=== PATIENT | male | born 1950 | race Caucasian/White ===

== ENCOUNTER 2024-07-16 09:02 | Inpatient (IN) ==
--- NOTE | 2024-06-19 13:22 | PAT Medication Instructions ---
Medication Instructions Date of Service June 19, 2024 Home Medications acetaminophen 325 mg tablet (Tylenol) 325 mg PO QID PRN Pain atorvastatin 40 mg tablet 40 mg PO HS cholecalciferol (vitamin D3) 50 mcg (2,000 unit) capsule 50 mcg PO DAILY diclofenac sodium 1 % topical gel (Aleve (diclofenac)) 2 g topical BID furosemide 20 mg tablet (Lasix) 20 mg PO DAILY furosemide 40 mg tablet (Lasix) 40 mg PO DAILY gabapentin 100 mg capsule (Neurontin) 100 mg PO BID hyoscyamine sulfate 0.125 mg sublingual tablet 0.25 mg PO Q6 PRN Nausea loperamide 2 mg capsule 2 mg PO Q6H PRN Loose Stool melatonin 5 mg capsule 10 mg PO HS rivaroxaban 20 mg tablet (Xarelto) 20 mg PO DAILY sennosides 8.6 mg tablet (Senna Laxative) 17.2 mg PO BID PRN Constipation tirzepatide 2.5 mg/0.5 mL subcutaneous pen injector (Mounjaro) 2.5 mg subcut WK bisacodyl 10 mg rectal suppository (Dulcolax (bisacodyl)) 10 mg ID PM PRN Constipation guaifenesin 100 mg/5 mL oral liquid 300 mg PO Q6 PRN Cough lactulose 20 gram/30 mL oral solution 20 g PO QAM PRN Constipation mineral oil 118 ml ID QAM PRN Constipation sennosides 8.6 mg-docusate sodium 50 mg tablet 1 tab-cap PO HS ASK your prescriber and surgeon rivaroxaban 20 mg tablet (Xarelto) 20 mg PO DAILY STOP 7 days prior to surgery tirzepatide 2.5 mg/0.5 mL subcutaneous pen injector (Mounjaro) 2.5 mg subcut WK STOP taking 24 hours before surgery diclofenac sodium 1 % topical gel (Aleve (diclofenac)) 2 g topical BID DO NOT take the morning of surgery cholecalciferol (vitamin D3) 50 mcg (2,000 unit) capsule 50 mcg PO DAILY furosemide 20 mg tablet (Lasix) 20 mg PO DAILY furosemide 40 mg tablet (Lasix) 40 mg PO DAILY hyoscyamine sulfate 0.125 mg sublingual tablet 0.25 mg PO Q6 PRN Nausea loperamide 2 mg capsule 2 mg PO Q6H PRN Loose Stool sennosides 8.6 mg tablet (Senna Laxative) 17.2 mg PO BID PRN Constipation guaifenesin 100 mg/5 mL oral liquid 300 mg PO Q6 PRN Cough lactulose 20 gram/30 mL oral solution 20 g PO QAM PRN Constipation mineral oil 118 ml ID QAM PRN Constipation Take morning of surgery With a small sip of water, OTHERWISE NOTHING TO EAT OR DRINK AFTER MIDNIGHT: acetaminophen 325 mg tablet (Tylenol) 325 mg PO QID PRN Pain (if needed) gabapentin 100 mg capsule (Neurontin) 100 mg PO BID Take evening before surgery acetaminophen 325 mg tablet (Tylenol) 325 mg PO QID PRN Pain (if needed) atorvastatin 40 mg tablet 40 mg PO HS gabapentin 100 mg capsule (Neurontin) 100 mg PO BID hyoscyamine sulfate 0.125 mg sublingual tablet 0.25 mg PO Q6 PRN Nausea (if needed) loperamide 2 mg capsule 2 mg PO Q6H PRN Loose Stool (if needed) melatonin 5 mg capsule 10 mg PO HS sennosides 8.6 mg tablet (Senna Laxative) 17.2 mg PO BID PRN Constipation (if needed) bisacodyl 10 mg rectal suppository (Dulcolax (bisacodyl)) 10 mg ID PM PRN Constipation (if needed) guaifenesin 100 mg/5 mL oral liquid 300 mg PO Q6 PRN Cough (if needed) sennosides 8.6 mg-docusate sodium 50 mg tablet 1 tab-cap PO HS Other Notes If you have any questions please call us at [phone] or [phone] or [phone] or [phone]
--- NOTE | 2024-06-29 12:56 | Anesthesiology Consultation ---
Date of Service June 29, 2024 Assessment & Plan (1) Encounter for preoperative assessment: Chart Review Chart Review: Acceptable Risk for Surgery (pending EKG DOS ) and Patient NOT seen in Pre Admission Testing - Check BSG AM DOS - Recheck EKG stat DOS - Mounjaro instructions: Patient informed by PAT nursing to stop 7 days prior to surgery. Patient advised by PAT nursing to check with prescriber to see if alternative diabetic management changes recommended while holding Mounjaro - if so, patient to call back to PAT to update chart and discuss if any further preop medication instructions needed. Last dose of Mounjaro given 06/24/24; will be off Mounjaro x 8 days by DOS on 07/02/24. -Infectious Disease screening: Per PAT nursing assessment on 06/19/24. Pt resi alexy at [facility]. No known infectious disease contacts in past 10 days or current infectious disease symptoms. No recent travel outside the country. Possibly getting preop Covid test 06/30/24 at facility- if not- [facility] Covid test will need ordered DOS History Surgery Operation Date: 07/02/24 07:30 Proposed Procedures p Hydrocelectomy - Bilateral - Gabriele Orona, Height/Weight Height: 5 ft 10 in Weight: 180.983 kg Allergies Allergy/AdvReac Type Severity Reaction Status Date / Time No Known Allergies Allergy Verified 06/19/24 12:32 Medications Home Medications Medication Instructions Recorded Confirmed Last Taken acetaminophen 325 mg tablet 325 mg PO QID PRN Pain 06/16/24 06/19/24 Unknown (Tylenol) atorvastatin 40 mg tablet 40 mg PO HS 06/16/24 06/19/24 Unknown cholecalciferol (vitamin D3) 50 50 mcg PO DAILY 06/16/24 06/19/24 Unknown mcg (2,000 unit) capsule diclofenac sodium 1 % topical gel 2 g topical BID 06/16/24 06/19/24 Unknown (Aleve (diclofenac)) furosemide 20 mg tablet (Lasix) 20 mg PO DAILY 06/16/24 06/19/24 Unknown furosemide 40 mg tablet (Lasix) 40 mg PO DAILY 06/16/24 06/19/24 Unknown gabapentin 100 mg capsule 100 mg PO BID 06/16/24 06/19/24 Unknown (Neurontin) hyoscyamine sulfate 0.125 mg 0.25 mg PO Q6 PRN Nausea 06/16/24 06/19/24 Unknown sublingual tablet loperamide 2 mg capsule 2 mg PO Q6H PRN Loose Stool 06/16/24 06/19/24 Unknown melatonin 5 mg capsule 10 mg PO HS 06/16/24 06/19/24 Unknown rivaroxaban 20 mg tablet (Xarelto) 20 mg PO DAILY 06/16/24 06/19/24 Unknown sennosides 8.6 mg tablet (Senna 17.2 mg PO BID PRN Constipation 06/16/24 06/19/24 Unknown Laxative) tirzepatide 2.5 mg/0.5 mL 2.5 mg subcut WK 06/16/24 06/19/24 Unknown subcutaneous pen injector (Mounjaro) bisacodyl 10 mg rectal suppository 10 mg WI PM PRN Constipation 06/19/24 06/19/24 Unknown (Dulcolax (bisacodyl)) guaifenesin 100 mg/5 mL oral liquid 300 mg PO Q6 PRN Cough 06/19/24 06/19/24 Unknown lactulose 20 gram/30 mL oral 20 g PO QAM PRN Constipation 06/19/24 06/19/24 Unknown solution mineral oil 118 ml WI QAM PRN Constipation 06/19/24 06/19/24 Unknown sennosides 8.6 mg-docusate sodium 1 tab-cap PO HS 06/19/24 06/19/24 Unknown 50 mg tablet Past Medical History Medical History Bilateral hydrocele BMI 50.0-59.9, adult Chronic atrial fibrillation on Xarelto Diabetes mellitus, type 2 Essential (primary) hypertension Hyperlipemia Insomnia Muscle weakness (generalized) Nonrheumatic mitral (valve) insufficiency [facility] resident Obstructive sleep apnea On anticoagulant therapy xarelto daily for a fib Osteoarthritis Past Family History Family History Other Family history unknown Past Surgical History Surgical History Surgical history unknown Social History Smoking Status: Unknown if ever smoked Testing Laboratory Results 06/22/24= WBC: 11.50 H/H: 12.5/38 PLATELETS: 347 SODIUM: 138 POTASSIUM: 4.0 CHLORIDE: 101 CO2: 26 BUN: 9 CREATININE: 0.91 GLUCOSE: 179 URINE CULTURE: >100,000 CFU/mL Klebsiella pneumoniae Electrocardiogram Date: 06/26/24 Atrial fibrillation with premature aberrantly conducted complexes at 89bpm Low voltage QRS Cannot rule out anterior infarct, age undetermined. "No for 48 hour holter mon(itor)" per confirming provider (Disucssed with Dr. Vaishnavi smith recheck EKG DOS) Chest X-Ray Date: 06/22/24 Findings: + NAD
[~2024-07-16 09:02] MED LIST: LACTATED RINGER'S 1,000 ML IV SCH; ceFAZolin 3000MG 3,000 MG/72.5 ML BAG IV SCH
--- NOTE | 2024-07-16 09:53 | History & Physical Report ---
Date of Service July 16, 2024 Assessment & Plan (1) Bilateral hydrocele: (2) BMI 50.0-59.9, adult: (3) On anticoagulant therapy: (4) Nonrheumatic mitral (valve) insufficiency: (5) Essential (primary) hypertension: (6) Lower extremity edema: (7) Spermatocele of epididymis, multiple: (8) Bilateral hydrocele: (9) Diabetes mellitus, type 2: (10) Obstructive sleep apnea: Plan Patient with severe edema and volume overload issues with chronic significant scrotal edema lower extremity edema severe comorbidities with morbid obesity and bedbound status. Patient has been having reoccurring issues with scrotal pain discomfort has known hydroceles had developed epididymitis issues has chronic scrotal and lower extremity edema. Extensive conversation today and review of options. Did discuss the removal/management of hydroceles and spermatocele will likely not change the p atient's severe chronic edematous issues of the scrotum. Patient understands risk and benefits. Discussed high risk for issues with wound infection and healing issues. Reviewed extensively need for drain placement and management. Discussed expectations and recovery after procedure. Patient understand risk and benefits. Understands significant comorbidities. Has had hospitalization secondary to severe pain and episodes of infections with hydroceles. Understands risks and benefits and wants to proceed with bilateral hydrocelectomy. Risks and benefits discussed at length for procedure. These include bleeding, infection, injury to surrounding tissues or organs, and risks associated with anesthesia. Patient states understanding and agrees to proceed. Will sign consent and proceed. Plan for bilateral hydrocelectomy History of Present Illness Primary Care Provider: Glenn Mata Patient here for procedure. Patient has severe scrotal edema with chronic severe vascular and cardiac issues with significant edematous changes of the lower extremities with brawny, woody, pitting edema and severe mobility issues with morbid obesity. Patient has been having increasing issues with recurrent epididymitis testicular pain scrotal edema cellulitis and bother. Patient has combination of significant scrotal cellulitis and scrotal edema as well as significant hydrocele bilaterally. No changes in medical issues. Significant chronic medical issues with severe exacerbation with hospitalization secondary to scrotal problems. No major changes in urinary issues. Continued issues and concerns. No change in pain or discomfort. No severe fevers or chills. No chest pain or shortness of breath. Risks and benefits discussed at length for procedure. These include bleeding, infection, injury to surrounding tissues or organs, and risks associated with anesthesia. Patient and/or family states understanding and agrees to proceed. Consent and supporting information completed. Allergies Allergy/AdvReac Type Severity Reaction Status Date / Time No Known Allergies Allergy Verified 06/19/24 12:32 Home Medications Medication Instructions Recorded Confirmed Type acetaminophen 325 mg tablet 325 mg PO QID PRN Pain 06/16/24 06/19/24 History (Tylenol) atorvastatin 40 mg tablet 40 mg PO HS 06/16/24 06/19/24 History cholecalciferol (vitamin D3) 50 50 mcg PO DAILY 06/16/24 06/19/24 History mcg (2,000 unit) capsule diclofenac sodium 1 % topical gel 2 g topical BID 06/16/24 06/19/24 History (Aleve (diclofenac)) furosemide 20 mg tablet (Lasix) 20 mg PO DAILY 06/16/24 06/19/24 History furosemide 40 mg tablet (Lasix) 40 mg PO DAILY 06/16/24 06/19/24 History gabapentin 100 mg capsule 100 mg PO BID 06/16/24 06/19/24 History (Neurontin) hyoscyamine sulfate 0.125 mg 0.25 mg PO Q6 PRN Nausea 06/16/24 06/19/24 History sublingual tablet loperamide 2 mg capsule 2 mg PO Q6H PRN Loose Stool 06/16/24 06/19/24 History melatonin 5 mg capsule 10 mg PO HS 06/16/24 06/19/24 History rivaroxaban 20 mg tablet (Xarelto) 20 mg PO DAILY 06/16/24 06/19/24 History sennosides 8.6 mg tablet (Senna 17.2 mg PO BID PRN Constipation 06/16/24 06/19/24 History Laxative) tirzepatide 2.5 mg/0.5 mL 2.5 mg subcut WK 06/16/24 06/19/24 History subcutaneous pen injector (Mounjaro) bisacodyl 10 mg rectal suppository [address] PM PRN Constipation 06/19/24 06/19/24 History (Dulcolax (bisacodyl)) guaifenesin 100 mg/5 mL oral liquid 300 mg PO Q6 PRN Cough 06/19/24 06/19/24 History lactulose 20 gram/30 mL oral 20 g PO QAM PRN Constipation 06/19/24 06/19/24 History solution mineral oil [address] QAM PRN Constipation 06/19/24 06/19/24 History sennosides 8.6 mg-docusate sodium 1 tab-cap PO HS 06/19/24 06/19/24 History 50 mg tablet Past Med/Surg History Problem List (Updated 07/16/24 @ 09:51 by Gabriele Orona DO) Lower extremity edema Spermatocele of epididymis, multiple (Chronic) Bilateral hydrocele (Chronic) Vitamin D deficiency Medical History On anticoagulant therapy xarelto daily for a fib [facility] resident BMI 50.0-59.9, adult Insomnia Bilateral hydrocele Osteoarthritis Obstructive sleep apnea Nonrheumatic mitral (valve) insufficiency Chronic atrial fibrillation on Xarelto Hyperlipemia Essential (primary) hypertension Muscle weakness (generalized) Diabetes mellitus, type 2 Surgical History Surgical history unknown Family History Other Family history unknown Social History Smoking Status: Unknown if ever smoked Preferred Language: Yakut Communication Ability: Effective [employer] Specialist Required: No Beliefs That Will Affect Care: None Current Living Situation: [facility] Current Living Situation Comment: resides at [facility] Assistive Devices Comment: unknown what all activities needs assist with, prison resident Review of Systems All systems reviewed & are unremarkable except as noted in HPI & below Physical Exam Physical Exam: General: Alert/Arousable. No Acute illness. Morbid obesity. Severe chronic comorbidities. Severe edematous changes of the lower extremity HEENT: Inspection normal. Normal inspection of face. Normal inspection of neck. Psychologic: Normal affect/No change in mentation. Respiratory: Chronic respiratory issue. No use of accessory muscles. No respiratory changes or exacerbation or changes with tachypnea or dyspnea. Cardiovascular: No tachycardia Skin: Severe pitting edema with chronic leg wounds. Abdomen: Morbid obesity. Normal inspection. No guarding. : Bilateral hydroceles. Scrotal edema. Results & Data Vital Signs (Past 12 Hours) Vital Signs Temp Pulse Resp BP Pulse Ox O2 Del Method 07/16/24 09:40 36.7 C 78 20 110/78 90 Room Air PG Care Time/CCT Total # of Minutes Spent Total Time Spent with Patient: Total time spent is greater than 50% in coordination of care (as documented) at patient's floor/unit and/or counseling patient: Coding Level of Care Code None Diagnoses Bilateral hydrocele N43.3 BMI 50.0-59.9, adult Z68.43 On anticoagulant therapy Z79.01 Nonrheumatic mitral (valve) insufficiency I34.0 Essential (primary) hypertension I10 Lower extremity edema R60.0 Spermatocele of epididymis, multiple N43.42 Diabetes mellitus, type 2 E11.9 Obstructive sleep apnea G47.33
[2024-07-16] MEDS ORDERED: DEXAMETHASONE SOD INJ 4 MG/ML VIAL ONE (09:55)
[2024-07-16] MEDS ORDERED: PROPOFOL IV EMULSION 10 MG/ML 20 ML VIAL IV ONE ×3 (09:56→13:23)
[2024-07-16] MEDS ORDERED: ONDANSETRON INJ 2 MG/ML 2 ML VIAL ONE (09:56)
[2024-07-16] MEDS ORDERED: LIDOCAINE 2% 2 ML VIAL/AMP(20MG/ML) INFIL ONE (09:56)
[2024-07-16] MEDS ORDERED: MIDAZOLAM HCL 1 MG/ML 2ML VIAL ONE (09:58)
[2024-07-16] MEDS ORDERED: fentaNYL citrate PF 100 MCG/2 ML VIAL ONE (09:58)
[2024-07-16] MEDS ORDERED: SUCCINYLCHOLINE CHLORIDE 20 MG/ML 10 ML VIAL IV ONE (09:59)
[2024-07-16] MEDS: LR 15ML/HR IV SCH (10:03)
[2024-07-16] MEDS ORDERED: ePHEDrine sulfate 50 MG/ML AMP IV PRN (10:43)
[2024-07-16] MEDS ORDERED: HYDROmorphone INJ 2 MG/ML SYR/VIAL IV PRN (10:43)
[2024-07-16] MEDS ORDERED: PROMETHAZINE HCL 6.25 MG in SODIUM CHLORIDE 0.9% 50 ML IV PRN (10:43)
[2024-07-16] MEDS ORDERED: ATROPINE SULFATE 0.1 MG/ML 10ML SYR IV PRN (10:43)
[2024-07-16] MEDS: ceFAZolin 3000MG 3,000 MG/72.5 ML BAG IV SCH (10:44)
[2024-07-16] MEDS ORDERED: PHENYLEPHRINE HCL 10 MG/ML VIAL ONE ×3 (11:01)
[2024-07-16] MEDS ORDERED: SUGAMMADEX SODIUM 200 MG/2 ML VIAL IV ONE (11:26)
[2024-07-16] MEDS: BUPIVACAINE 0.5 % 5 MG/1 ML MPF 30ML VIAL ONE (11:52)
[2024-07-16] MEDS ORDERED: ALBUTEROL HFA 8 GM INHALER INH ONE (12:41)
[2024-07-16] MEDS ORDERED: STAT IV Infusion **Titration per Protocol STA (12:56)
[2024-07-16] MEDS ORDERED: PROPOFOL BOLUS FROM BAG IV PRN (13:00)
--- NOTE | 2024-07-16 13:00 | Operative Report ---
PG Post Operative Report Pre & Post Diagnosis Operation Date: 07/16/24 13:10 Pre-Op Diagnosis: Bilateral Hydrocele Post-Op Diagnosis: Bilateral Hydrocele I identified the patient and participated in the time-out.: Yes Procedure Operation Date: 07/16/24 13:10 Actual Procedures Bilateral Hydrocelectomy, drainage of scrotal fluid collection, and Bilateral sp ermatocelectomy Difficult catheter placement with buried penis. - Gabriele Orona, DO Surgeon Gabriele Orona, II, DO Line Construction Superintendent None Estimated Blood Loss 10 Findings Consistent with Post-Op Diagnosis Significant bilateral hydroceles. Severe bilateral fluid collections within the hemiscrotum and severe thickened bilateral pitting edema of the scrotal skin. Small bilateral spermatoceles. Severely buried penis with difficult catheter placement. Approximately 500 cc drained with dark cloudy purulent appearing urine. Specimens Hydrocele Sac Right Hydrocele Sac Left Drains Bilateral Esteban Drain Anesthesia Type General Complications none Disposition Disposition: Recovery Room Indications Bothersome scrotal fluid collection. Severe scrotal fluid collections with severe edema and volume overload issues. Risks and benefits discussed at length. Description of Procedure Patient was consented and brought back to the operating room. Patient was placed under anesthesia in the supine position. Patient was prepped and draped in the regular sterile fashion. A time out was completed. With the time out completed and the patient prepped, the median raphe was marked and local injected into the subcutaneous tissues. The scrotum was found to be severely enlarged and swollen there was severe edematous changes throughout the scrotal skin no sign of skin wound or breakdown. Large bilateral hydroceles were able to be appreciated with as well as a severe amount of edematous changes of the skin with likely fluid collections within the hemiscrotum bilaterally. The penis was found to be buried. A cord block was completed at the scrotal junction. An incision was made with a scalpel and the deep tissues were dissected with bovie electrocautery. Dissection began on the right hemiscrotum first. Once the hemiscrotum was entered and a significant amount of fluid was drained. The testicle was able to be identified and freed from significant attachments throughout the hemiscrotum likely from inflammatory changes. The testicle was delivered and found to have a large fluid containing cyst. 2 small spermatoceles were discovered on the epididymis. A large hydrocele was noted. All important structures and landmarks were identified and the sac open avoiding any areas of concern. Excess tissue was dissected and sent for analysis. The spermatoceles were then dissected away from the testicle and epididymis. The entire testicle and epididymis were examined. The tissue was then isolated and dissected and sent with the specimen. All bleeding was controlled. The scrotum was irrigated and all bleeding controlled. The scrotal skin was found to still be severely edematous. The edges of the hydrocele sac were then ov ersewn behind the testicle with a 2-0 Vicryl suture. A cord block was completed with additional local anesthetic. The entire area was examined. It was decided to place a Marion drain in the dependant portion of the scrotum to drain the hemiscrotum. The drain was placed and suture with a nylon. The testicle appeared viable without lesions or other areas of concern. The Testicle was placed into the hemiscrotum in anatomic position without any torsion of the cord. The left hemiscrotum was then entered. Once again a large amount of fluid was drained from the left hemiscrotum. Between the left and right hemiscrotum over 550 cc of fluid were drained off. The testicle was delivered on the left side. The important structures were assessed. A small spermatocele was noted with a large left hydrocele All important structures and landmarks were identified and the sac open avoiding any areas of concern. Excess tissue was dissected and sent for analysis. The spermatoceles were then dissected away from the testicle and epididymis. The entire testicle and epididymis were examined. The tissue was then isolated and dissected and sent with the specimen. All bleeding was controlled. The scrotum was irrigated and all bleeding controlled. The scrotal skin was found to still be severely edematous. The edges of the hydrocele sac were then oversewn behind the testicle with a 2-0 Vicryl suture. A cord block was completed with additional local anesthetic. The entire area was examined. It was decided to place a Esteban drain in the dependant portion of the scrotum to drain the hemiscrotum. The drain was placed and suture with a nylon. A 2-0 nylon was used for both Esteban drains. The testicle appeared viable without lesions or other areas of concern. The Testicle was placed into the hemiscrotum in anatomic position without any torsion of the cord. There was still significant edematous changes throughout the scrotal wall and scrotal tissue. No major fluid collections or other areas of concern were noted no abscess formation. No additional hydrocele spermatoceles or other abnormalities were noted. Both testicles appear to be viable and able to be positioned in the hemiscrotum without major issue. Both drains were draining well without major problems or concerns. The scrotal wall did appear to be edematous without signs of active bleeding and a severe amount of fluid had been noted within the hemiscrotum's bilaterally as noted above. The deep and subcutaneous tissues were closed with a running 3-0 vicryl suture. A 2-0 and 3-0 Vicryl suture was then used to close the skin in an interrupted fashion. The area was cleaned. Bandages were placed A scrotal support was placed with dressings. Due to the significant buried penis and concerns of patient's history of infection issues and possible issues with wound healing due to patient's severe comorbidities and severe edematous changes throughout the scrotum it was decided to place a catheter to allow full drainage as well as to divert urine away from the wound. The penile head was able to be assessed however was found to be significantly buried due to patient's pannus as well as the severe scrotal edema. Significant manipulation was necessary in order to expose the head of the penis. Once exposed the area was prepped in the typical sterile fashion and a 18 Bangladeshi catheter was able to be placed. Dark cloudy purulent appearing urine with large amount of debris was appreciated. Approximately 500 cc was drained off. The catheter balloon was elevated. The patient was cleaned, aroused from anesthesia, and transferred to the pacu in stable condition having tolerated the procedure well with no complications. I was present and participated in all aspects of the procedure. Plan to maintain catheter until patient has had adequate healing. Can likely remove in the next 2 to 4 weeks. Will plan to have patient return for follow-up with [facility] for wound check as well as drain removal in the office. If necessary can have drain removal done at outlying facility in approximately 7 to 10 days. I attest to the content of the Intraoperative Record and any orders documented therein. Any exceptions are noted below.
[2024-07-16] MEDS: propofoL 1,000 MG/100 ML VIAL IV SCH (13:05)
--- NOTE | 2024-07-16 13:11 | XRay Report ---
XR chest 1V portable CLINICAL HISTORY: intubation COMPARISON STUDY: None FINDINGS: Endotracheal tube tip is at the thoracic inlet. There is cardiomegaly with mild pulmonary v ascular congestion. There is mild stranding opacity in the lung bases. No pneumothorax. IMPRESSION: 1. Well-positioned endotracheal tube. 2. Mild CHF. 3. Likely lung base atelectasis. ACT 112: Negative or not required by law. Electronically signed by: Cristopher Stanford M.D. 07/16/2024 1:10 PM
--- NOTE | 2024-07-16 13:42 | Anesthesiology Progress Note ---
Date of Service July 16, 2024 Anesthesia Post Procedure Vital Signs Vital Signs: Temp Pulse Resp BP Pulse Ox O2 Del Method O2 Flow Rate 07/16/24 10:03 Room Air 88 07/16/24 09:40 36.7 C 78 20 110/78 90 Room Air Transfer of Care Handoff Completed per policy Notes Mental Status: see notes below Nausea / Vomiting: adequately controlled Pain: adequately controlled Airway Patency, RR, SpO2: see Notes below BP & HR: stable & adequate Hydration State: stable & adequate Anesthetic Complications: see Notes below Notes: Pt extubated in OR after sugammadex reversal with good tidal volumes and awake and responsive. Pt became unresponsive on arrival to PACU with hypoventillation and O2 sat ~75. Bag mask ventillation with nasal trumpet and oral airway was minimally successful with O2 sat improving to low 89s with substantial effort. Patient was reintubated in PACU with 8.0 tube using a Glidescope 4MAC with partial view of cords. Position was confirmed via CO2, auscultation and chest xray with improvement of O2 sats to mid 90s. Tube was suctioned and Albuterol puffs given via ET tube for wheezing on auscultation. Patient then bit through the airplane pilot helper cuff tube and cuff deflated with leak on ventillation. Tube was quickly exchanged using a bougie without incident using an 8.0 ET tube and maintaining the bougie at 25 cm at the teeth during the exchange process to avoid bronchial/lung injury. Pt was then begun on a propofol infusion for sedation with mechanical ventilation resumed by the respiratory service at 600 mL x 20 bpm with a PEEP setting of 10. Consult was placed for the grain thresher and patient prepared for transport to the ICU.
--- NOTE | 2024-07-16 13:47 | XRay Report ---
XR chest 1V portable CLINICAL HISTORY: s/p intubation COMPARISON STUDY: 07/16/2024 FINDINGS: Endotracheal tube tip is just below the thoracic inlet. There is stable cardiomegaly with p ulmonary vascular congestion. There is increased patchy opacity at the right base with partial obscur ation of the diaphragm. Stable stranding at the left base. No pneumothorax. IMPRESSION: 1. Well-positioned endotracheal tube. 2. Increased atelectasis versus pneumonia right lung base. ACT 112: Negative or not required by law. Electronically signed by: Cristopher Stanford M.D. 07/16/2024 1:46 PM
[2024-07-16] MEDS ORDERED: cefTRIAXone SODIUM 1,000 MG/50 ML BAG IV SCH (15:00)
[2024-07-16] MEDS: SUCCINYLCHOLINE CHLORIDE 20 MG/ML 10 ML VIAL IV ONE (15:59)
[2024-07-16] MEDS: cefTRIAXone SODIUM 2,000 MG/50 ML BAG IV SCH (16:01)
[2024-07-16] MEDS: MEROPENEM 500 MG in SYRINGE 0 ML IV SCH (17:00)
--- NOTE | 2024-07-16 17:07 | Billing Data ---
Date of Service July 16, 2024 Coding Level of Care Code 68613 CRITICAL CARE
--- NOTE | 2024-07-16 19:52 | Critical Care Consultation ---
Date of Consultation July 16, 2024 Assessment & Plan (1) Spermatocele of epididymis, multiple: (2) Bilateral hydrocele: (3) Lower extremity edema: (4) Acute hypoxemic respiratory failure: Secondary to anesthesia and obesity hypoventilation Plan Neurologic APAP PRN pain/fever Gabapentin tomorrow Propofol for RASS goal 0 to -1 Daily SAT Respiratory No active wheezing. Will hold on bronchodilators Daily SBT, hopefully extubated in AM. May require transition to BIPAP. Cardiovascular Continue home diuretics, statin Home Xarelto in AM Gastrointestinal/Nutrition Diet: NPO. OGT deferred as Rx non-emergent overnight and likely to be extubated in AM. If unable to be extubated will need to place for home meds SUP: H2B Bowel regimen: Miralax Endocrine Hold home Mounjaro. ISS for BG 140-180 per [facility]M guidelines Infectious Disease Perioperative antibiotics per Urology Renal/Electrolytes Follow UOP Maintain burr catheter 2-4 weeks per Urology Replete electrolytes as indicated Lasix as above Heme/Onc No acute issues MSK/Skin/Other Wound care, elevate legs Mobilize as able PT/OT L/T/D PIV x2 ETT (Day #1) Burr (Day #1) Laura Becker PA-C Critical Care Medicine Supervising Physician Co-Signing Physician Notes I have personally evaluated and examined this patient. I agree with assessment and plan of Per Becker PA-C I evaluated the patient in the PACU. Reintubation for postoperative respiratory insufficiency. Concern for possible early pneumonia versus atelectasis in right lower lobe. Empirically starting on Rocephin. I have personally spent 35 minutes of critical care time in the direct management of this patient. This is a life/limb threatening event. This includes time spent evaluating patient, direct bedside care, chart review, placing orders, interpretation of diagnostic studies, discussion with consultants, patient, and/or family members regarding treatment decisions, as well as other required patient management activities. This time is exclusive of all separately billable procedures, and teaching time and separate from and in addition to any other critical care service time. History of Present Illness Reason for Consultation: Respiratory insufficiency Requesting Physician: Yeyo Attending Physician: Gabriele Orona, II, DO History of Present Illness Mr. Oli Gandhi is a 74YOM with a history of morbid obesity, ambulatory dysfunction, chronic AF on Xarelto, JERICA, HF unknown EF, MV insufficiency, HTN/HLD, BLE edema, DMII, bilateral hydrocele who presented to [facility] for planned hydrocelectomy. Procedure was uncomplicated. Patient did have severely buried penis with difficult catheter placement. He had bilateral rena drains placed into the scrotum after approximately 550cc of fluid were drained from L and R hemiscrotum. Post-operatively the patient was extubated, but then required reintubation due to hypoxemia and hypoventilation. 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 He is admitted to ICU for close monitoring and ventilator management overnight. Patient seen in ICU 105. He is intubated and sedated. VSS, AF. ETT has scant bloody secretions. Vent AC 500/20/10/0.6. EtCO2 34. ETT 8.0 24cm at lip. Patient arouses to voice. Requiring propofol at 30mcg/kg/min. Moves all extremities spontaneously. ROS unable to be obtained due to mechanical ventilation. Allergies Allergy/AdvReac Type Severity Reaction Status Date / Time No Known Allergies Allergy Verified 06/19/24 12:32 Home Medications Medication Instructions Recorded Confirmed Type acetaminophen 325 mg tablet 325 mg PO QID PRN Pain 06/16/24 07/16/24 History (Tylenol) atorvastatin 40 mg tablet 40 mg PO HS 06/16/24 07/16/24 History cholecalciferol (vitamin D3) 50 50 mcg PO DAILY 06/16/24 07/16/24 History mcg (2,000 unit) capsule diclofenac sodium 1 % topical gel 2 g topical BID 06/16/24 07/16/24 History (Aleve (diclofenac)) furosemide 20 mg tablet (Lasix) 20 mg PO DAILY 06/16/24 07/16/24 History furosemide 40 mg tablet (Lasix) 40 mg PO DAILY 06/16/24 07/16/24 History gabapentin 100 mg capsule 100 mg PO BID 06/16/24 07/16/24 History (Neurontin) hyoscyamine sulfate 0.125 mg 0.25 mg PO Q6 PRN Nausea 06/16/24 07/16/24 History sublingual tablet loperamide 2 mg capsule 2 mg PO Q6H PRN Loose Stool 06/16/24 07/16/24 History melatonin 5 mg capsule 10 mg PO HS 06/16/24 07/16/24 History rivaroxaban 20 mg tablet (Xarelto) 20 mg PO DAILY 06/16/24 07/16/24 History sennosides 8.6 mg tablet (Senna 17.2 mg PO BID PRN Constipation 06/16/24 07/16/24 History Laxative) tirzepatide 2.5 mg/0.5 mL 2.5 mg subcut WK 06/16/24 07/16/24 History subcutaneous pen injector (Mounjaro) bisacodyl 10 mg rectal suppository 10 mg MT PM PRN Constipation 06/19/24 07/16/24 History (Dulcolax (bisacodyl)) guaifenesin 100 mg/5 mL oral liquid 300 mg PO Q6 PRN Cough 06/19/24 07/16/24 History lactulose 20 gram/30 mL oral 20 g PO QAM PRN Constipation 06/19/24 07/16/24 History solution mineral oil 118 ml MT QAM PRN Constipation 06/19/24 07/16/24 History sennosides 8.6 mg-docusate sodium 1 tab-cap PO HS 06/19/24 07/16/24 History 50 mg tablet ciprofloxacin HCl 500 mg tablet 500 mg PO Q12H #14 tabs 07/16/24 Rx (Cipro) oxycodone 5 mg tablet 5 mg PO Q6H PRN pain #6 tabs 07/16/24 Rx tamsulosin 0.4 mg capsule 0.4 mg PO HS #30 caps 07/16/24 Rx Patient History Medical History On anticoagulant therapy xarelto daily for a [facility] long-term resident BMI 50.0-59.9, adult Insomnia Bilateral hydrocele Osteoarthritis Obstructive sleep apnea Nonrheumatic mitral (valve) insufficiency Chronic atrial fibrillation on Xarelto Hyperlipemia Essential (primary) hypertension Muscle weakness (generalized) Diabetes mellitus, type 2 Surgical History Surgical history unknown Family History Other Family history unknown Social History Smoking Status: Unknown if ever smoked Preferred Language: Latvian Communication Ability: Effective Pony Worker Required: No Beliefs That Will Affect Care: None Current Living Situation: Shelter Current Living Situation Comment: resides at [facility] in [place] Assistive Devices Comment: unknown what all activities needs assist with, senior living resident Review of Systems Review of Systems: Unobtainable due to endotracheal tube Physical Exam Constitutional: + morbidly obese and + frail appearing; no acute distress Eyes: PERRL, conjunctivae normal, anicteric sclerae ENMT: ETT in place, 24cm at lip. Scant bloody secretions. Neck: trachea midline, no thyromegaly Respiratory: symmetric chest movement Scattered rales Cardiovascular: Atrial fibrillation, + murmur, + peripheral edema, 3-4+ pedal edema, no open ulcerations noted Gastrointestinal (Abdomen): normal bowel sounds, soft, nontender, no hepatosplenomegaly Obese Musculoskeletal: No cyanosis or clubbing Skin: Warm and dry. Venous stasis changes without open lesions. Neurologic: Intubated and sedated. Awakens to voice. Moving extremities spontaneously. Genitourinary: Burr in place draining dark yellow urine. Bilateral rena drains in place Results & Data Results & Data Vital Signs (Past 12 Hours) Vital Signs Temp Pulse Pulse Pulse Resp BP BP 07/16/24 17:00 73 20 07/16/24 16:59 122/65 07/16/24 16:59 122/65 07/16/24 16:59 122/65 07/16/24 16:59 122/65 07/16/24 16:45 75 20 07/16/24 16:30 77 20 07/16/24 16:25 115/66 07/16/24 16:25 115/66 07/16/24 16:25 115/66 07/16/24 16:21 76 20 07/16/24 16:15 77 20 07/16/24 16:00 73 20 07/16/24 16:00 07/16/24 16:00 07/16/24 15:55 110/72 07/16/24 15:55 110/72 07/16/24 15:54 74 20 07/16/24 15:51 72 20 07/16/24 15:42 79 20 07/16/24 15:00 92 H 20 07/16/24 15:00 68 20 96/92 L 01/23/25 14:50 80 20 98/68 L 07/16/24 14:40 68 20 88/68 L 07/16/24 14:30 79 20 96/64 L 07/16/24 14:20 79 20 97/65 L 07/16/24 14:10 72 20 97/61 L 07/16/24 14:00 77 20 96/59 L 07/16/24 13:50 80 20 106/70 07/16/24 13:40 82 20 111/72 07/16/24 13:30 98 H 20 102/86 07/16/24 13:20 84 20 101/67 07/16/24 13:10 92 H 13 103/79 07/16/24 13:00 105 H 17 124/83 07/16/24 12:50 96 H 18 94/59 L 07/16/24 12:40 98 H 25 H 120/90 07/16/24 12:32 36.0 C L 95 H 7 L 122/76 07/16/24 10:03 07/16/24 09:40 36.7 C 78 20 110/78 Pulse Ox O2 Del Method O2 Flow Rate FiO2 07/16/24 17:00 94 Mechanical Vent 0.5 07/16/24 16:59 07/16/24 16:59 07/16/24 16:59 07/16/24 16:59 07/16/24 16:45 94 07/16/24 16:30 95 07/16/24 16:25 07/16/24 16:25 07/16/24 16:25 07/16/24 16:21 85 L 07/16/24 16:15 100 Mechanical Vent 1.0 07/16/24 16:00 93 07/16/24 16:00 1.0 07/16/24 16:00 Mechanical Vent 1.0 07/16/24 15:55 07/16/24 15:55 07/16/24 15:54 99 07/16/24 15:51 100 07/16/24 15:42 96 100 07/16/24 15:00 92 100 07/16/24 15:00 98 Mechanical Vent 100 07/16/24 14:50 97 Mechanical Vent 100 07/16/24 14:40 97 Mechanical Vent 100 07/16/24 14:30 97 Mechanical Vent 100 07/16/24 14:20 98 Mechanical Vent 100 07/16/24 14:10 98 Mechanical Vent 100 07/16/24 14:00 97 Mechanical Vent 100 07/16/24 13:50 97 Mechanical Vent 100 07/16/24 13:40 99 Mechanical Vent 100 07/16/24 13:30 97 Mechanical Vent 100 07/16/24 13:20 98 Mechanical Vent 100 07/16/24 13:10 91 Mechanical Vent 100 07/16/24 13:00 96 Mechanical Vent 100 07/16/24 12:50 92 Mechanical Vent 100 07/16/24 12:40 83 L Ambu-Bag 15 07/16/24 12:32 85 L Oxymask 15 07/16/24 10:03 Room Air 88 07/16/24 09:40 90 Room Air Laboratory Results Reviewed. Diagnostic Findings Reviewed. Medications Administered See [facility] Coding Level of Care Code 43976 CRITICAL CARE 1ST 30-74M Diagnoses Spermatocele of epididymis, multiple N43.42 Bilateral hydrocele N43.3 Lower extremity edema R60.0 Acute hypoxemic respiratory failure J96.01
[2024-07-16] MEDS: MELATONIN 3 MG TAB PO SCH (20:06)
[2024-07-16] MEDS: GABAPENTIN 100 MG CAP PO SCH (20:06)
[2024-07-16] MEDS: ATORVASTATIN 40 MG TAB PO SCH (20:06)
[2024-07-16] MEDS ORDERED: POLYETHYLENE (MIRALAX) 17 GM PACK PO PRN (21:31)
[2024-07-16] MEDS ORDERED: Nursing to Pharmacy Communication SCH (22:00)
[2024-07-16] MEDS: FAMOTIDINE 20MG IV PUSH 20 MG/5 ML SYR IV SCH (22:24)
[2024-07-17] MEDS: ICU Protocol for HYPERglycemia SCH (00:11)
[2024-07-17] MEDS: MICONAZOLE NITRATE POWDER 85 GM EXT PRN (02:23)
[2024-07-17 04:47] LABS: Basophils # (auto) 0.05 K/uL (0.00-0.20); Basophils % (auto) 0.4 %; Eosinophils # (auto) 0.14 K/uL (0.00-0.50); Eosinophils % (auto) 1.1 %; Hematocrit (blood only) 37.2 % (42.0-52.0); Hemoglobin 11.9 g/dl (14.0-18.0); Immature Granulocytes # (auto) 0.05 K/uL (0.01-0.20); Immature Granulocytes % (auto) 0.4 %; Lymphocytes # (auto) 1.49 K/uL (1.20-3.40); Mean Corpuscular Hemoglobin 29.8 pg (25.0-34.0); Mean Corpuscular Volume 93.2 fL (80.0-100.0); Mean Platelet Volume 8.9 fL (9.4-12.4); Monocytes # (auto) 1.21 K/uL (0.11-0.59); Monocytes % (auto) 9.7 %; Neutrophils % (auto) 76.4 %; Platelet Count 307 K/uL (130-400); RDW Standard Deviation 48.2 fL (36.4-46.3); Red Blood Count 3.99 M/uL (4.70-6.10); White Blood Count 12.44 K/ul (4.8-10.8)
[2024-07-17 05:04] LABS: Creatinine Clr Calc Pharmacy 144.9 ml/min; Magnesium 1.6 mg/dl (1.7-2.4); Phosphorus 3.4 mg/dl (2.5-4.9)
[2024-07-17 05:05] LABS: BUN Creatinine Ratio 16.3 (10-20); Calcium 9.1 mg/dl (8.6-10.3); Creatinine Clr Calc Pharmacy 139.5 ml/min; Potassium 3.8 mmol/L (3.5-5.1)
[2024-07-17 05:49] LABS: Base Excess VBG 12.4 mEq/L; HCO3 VBG 38 mmol/L; Oxygen Saturation VBG < 60.0 %; PCO2 VBG 51 mmHg (38-50); PO2 VBG 28 mmHg; pH VBG 7.48 (7.36-7.41)
--- NOTE | 2024-07-17 06:58 | Critical Care Progress Note ---
Date of Service July 17, 2024 Assessment & Plan (1) Acute hypoxemic respiratory failure: Plan: Secondary to anesthesia and obesity hypoventilation (2) Spermatocele of epididymis, multiple: (3) Bilateral hydrocele: (4) Lower extremity edema: Plan Reason critically ill: postop day 1 s/p b/l hydrocelectomy procedure with acute hypoxemic resp failure and complicated extubation due to morbid obesity and airw ay obstruction. Neurologic - APAP PRN pain/fever - Gabapentin 100mg BID on board - sedation weaned post extubation, currently just on PO oxycodone for pain management Daily SAT Respiratory No active wheezing, hold bronchodilators. Extubated in AM -> BiPAP -> oxymask 5L/min with sats mainly in mid-90s, resp rate has been low-mid 30s since post-extubation Possible RLL pneumonia covered by meropenem -> ertapenem 07/17/24 Obtain BMP in AM for bicarb trendin today, likely metabolic compensation for resp acidosis Cardiovascular Continue home diuretics, statin Home Xarelto 20mg for a-fib, back on 07/17/24 Gastrointestinal/Nutrition Diet: swallow eval 12pm passed -> diet order liquids to start, advance as tolerated SUP: H2B Bowel regimen: Miralax Endocrine Hold home Mounjaro. ISS for BG 140-180 per [facility]M guidelines Infectious Disease Transition from meropenem to ertapenem today 07/17/24 for Kleb pneumo ESBL with multiple resistance patterns as well as possible pneumonia. If patient needs active treatment for UTI would likely necessitate 14-day course, defer to primary ordering service for duration of therapy/indication; could conceivably treat for pulmonary issues for 7 days. Renal/Electrolytes Follow UOPd Maintain burr catheter 2-4 weeks per Urology Replete electrolytes as indicated: receiving mag currently - BMP with mag and phos in AM Lasix as above: 650cc in bag this AM, still having severe swelling in b/l LE, less significant in b/l UE Heme/Onc WBCs 12.4 with slightly elevated nphils, otherwise no major concerns for bleeding - CBC in AM MSK/Skin/Other Wound care, elevate legs Mobilize as able PT/OT orders in L/T/D L antecubital IV Burr (Day #1) Admission and Anticipated Discharge Date Admission Date: July 16, 2024 Supervising Physician Co-Signing Physician Notes Dr. Chawla was resident physician during care of patient. I separately evaluated patient for bae portions of the history and the exam. I was present during the critical portion of medical decision making, and I discussed the case with the resident. I generally agree with the findings and plan. Patient critically ill, liberated from ventilator this morning transition from mechanical ventilation to BiPAP, attempting to wean BiPAP later today. I am concerned about patient's ability to remain extubated secondary to body habitus: BMI 56 and recent surgical procedure to the scrotum which may preclude him being able to sit upright adequately and adequate pain control. Narcotics relatively contraindicated in a patient who has predisposed to underlying obstructive sleep apnea and airway obstruction. Clinical update 1600: Patient has been able to be extubated. Occasionally requiring intermittent BiPAP. BiPAP is able to be discontinued and then patient does intermittently obstruct. I am suspect that this is his baseline. Ordered end-tidal CO2 monitoring. The only BMP that I am able to find is that on admission with a BNP of 34 I suspect patient has baseline chronic hypercapnic respiratory acidosis with chronic compensation: Obesity hypoventilation syndrome and significant obstructive sleep apnea. Attempting to limit narcotic analgesia, received Tylenol and Toradol. Jorge Baird was seen and evaluated at bedside this afternoon, wearing oxymask at 5L/min, not appearing in acute respiratory distress. He did have to pause to catch his breath when talking for more than a few seconds, but otherwise not feeling SOB, chest pain, or chest discomfort. States he is not having any significant pain or discomfort. Per Leena pt's nurse, he was able to successfully swallow his pills today, so may be able to start a liquid diet. Understands he is being treated for UTI and his scrotum is healing post- procedure. Physical Exam Physical Exam: Constitutional: A&Ox2, reported name and but did not recall hospital. Wearing oxymask 5L/min with elevated RR Head: NC/AT ENT: EOM intact, PERRL b/l, unable to visualize pharynx due to obstruction by soft palate Neuro: no facial droop, speech intact, moving all extremities, follows instructions to wiggle fingers and toes successfully Respiratory: small-moderate air movement b/l, otherwise clear to auscultation without wheeze/rales/rhonchi Cardiac: RRR, no m/r/g on auscultation, skin warm and dry - pulses: 2+ carotid b/l, 2+ radial b/l, unable to palpate LE pulses due to significant edema but extremities are warm GI/abd: +BS, obese, abdomen soft, nontender to palpation : Burr to gravity draining dark urine, ~100cc in bag currently; unable to visualize penis due to burying 2/2 body habitus, scrotum appearing with slight erythema Skin: scattered dry skin, flaky rash under abdominal pannus, no sores or active bleeding/weeping seen MSK: 5/5 strength in all extremities, 1+ pitting edema in b/l distal UE, 3+ pitting edema in b/l LE up to shins, calves nontender to palpation, no erythema observed, negative Hossein's b/l Results & Data Results & Data Vital Signs (Past 12 Hours) Vital Signs Temp Pulse Resp BP Pulse Ox O2 Del Method FiO2 07/17/24 06:03 72 16 94 07/17/24 05:44 66 20 96 07/17/24 05:35 72 20 96 07/17/24 05:25 128/78 07/17/24 05:25 36.7 C 128/78 07/17/24 05:23 66 20 96 07/17/24 05:02 66 20 97 07/17/24 04:55 131/72 07/17/24 04:41 62 20 96 07/17/24 04:38 36.7 C 69 20 96 Mechanical Vent 60 07/17/24 04:20 77 20 94 60 07/17/24 04:08 74 20 94 07/17/24 04:00 60 07/17/24 03:55 110/69 07/17/24 03:50 64 20 94 07/17/24 03:32 71 20 94 07/17/24 03:08 75 20 94 07/17/24 02:55 105/64 07/17/24 02:53 71 20 94 07/17/24 02:50 69 20 94 07/17/24 02:41 74 20 95 07/17/24 02:32 69 20 95 07/17/24 02:25 119/73 07/17/24 02:25 119/73 07/17/24 02:23 76 20 95 07/17/24 02:11 71 20 95 07/17/24 02:02 72 20 94 07/17/24 01:56 65 20 94 07/17/24 01:55 107/71 07/17/24 01:55 107/71 07/17/24 01:55 107/71 07/17/24 01:25 119/74 07/17/24 01:15 110 H 20 94 07/17/24 00:56 121/70 07/17/24 00:56 121/70 07/17/24 00:51 65 20 93 07/17/24 00:48 72 20 93 07/17/24 00:33 73 20 93 07/17/24 00:25 37.0 C 123/76 07/17/24 00:24 67 20 94 07/17/24 00:21 68 20 94 07/17/24 00:00 73 20 93 07/17/24 00:00 60 07/16/24 23:55 82 20 93 60 07/16/24 23:55 73 07/16/24 23:48 72 20 93 07/16/24 23:33 65 20 93 07/16/24 23:26 114/67 07/16/24 23:26 114/67 07/16/24 23:24 74 20 94 07/16/24 23:21 71 20 94 07/16/24 22:42 69 20 94 07/16/24 22:36 72 20 94 07/16/24 22:24 71 20 94 Mechanical Vent 60 07/16/24 22:12 74 20 93 07/16/24 22:04 Mechanical Vent 60 07/16/24 22:03 77 20 94 07/16/24 21:55 120/77 07/16/24 21:45 69 20 94 07/16/24 21:42 79 20 94 07/16/24 21:39 74 20 94 07/16/24 21:25 123/72 07/16/24 21:25 123/72 07/16/24 21:24 68 20 94 07/16/24 21:06 75 20 94 07/16/24 20:55 122/68 07/16/24 20:54 78 20 94 07/16/24 20:36 73 20 95 07/16/24 20:25 122/72 07/16/24 20:15 79 20 97 07/16/24 20:15 75 20 95 60 07/16/24 20:09 72 20 95 07/16/24 20:00 60 07/16/24 19:56 134/70 07/16/24 19:56 134/70 07/16/24 19:54 78 20 95 07/16/24 19:30 73 20 95 07/16/24 19:25 36.9 C 134/72 07/16/24 19:21 72 20 95 07/16/24 19:00 70 20 95 Mechanical Vent 60 Resident Activity Tracking Resident Involvement: Resident Care Provided Care Provided: Adult Hospital Medicine
[2024-07-17] MEDS ORDERED: ICU Protocol for HYPERglycemia SCH (07:30)
--- NOTE | 2024-07-17 07:48 | Billing Data ---
Date of Service July 17, 2024 Coding Level of Care Code 93699 CRITICAL CARE
--- NOTE | 2024-07-17 08:15 | XRay Report ---
EXAM: XR chest 1V portable CLINICAL HISTORY: INTUBATED, PLAN TO EXTUBATE EUFEMIA TECHNIQUE: An X-ray image of the chest is obtained in 1 AP projection. COMPARISON: No prior studies are available for comparison. FINDINGS: ETT seen with its tip 7.1 cm from mc. Pulmonary Parenchyma: Right lower lung zone ill-defined patchy opacity seen, on background of bilateral prominent broncho vascular markings and hilar vessels, could be due to pulmonary congestion versus acute infectious process advised for clinical correlation Obliterated both costophrenic angles, possibly due to pleural effusion Heart and Mediastinum: Cardiomegaly. Bony Thorax: Bony thorax appears intact without fractures or deformities. Soft Tissues: Soft tissues overlying the chest wall are unremarkable. IMPRESSION: 1. ETT seen with its tip 7.1 cm from the mc, may need to be pushed 1 or 2 cm for its optimal position. 2. Right lower lung zone ill-defined patchy opacity seen, on background of bilateral prominent broncho vascular markings and hilar vessels, could be due to pulmonary congestion versus acute infectious process advised for clinical correlation. 3. Obliterated both costophrenci angles, possibly due to pleural effusion. 4. Cardiomegaly. Electronically signed by Quinn Desouza 07-17-2024 08:15 AM
[2024-07-17] MEDS: FUROSEMIDE 40 MG/4 ML VIAL IV ONE (08:31)
[2024-07-17] MEDS ORDERED: oxyCODONE HCL IR 5 MG TAB (IMMEDIATE RELEASE) PO PRN ×2 (09:37)
[2024-07-17] MEDS: FUROSEMIDE 40 MG TAB PO SCH (10:09)
[2024-07-17] MEDS: GLYCOPYRROLATE 0.2 MG/ML VIAL IV STA (10:09)
[2024-07-17] MEDS: FUROSEMIDE 20 MG TAB PO SCH (10:10)
[2024-07-17] MEDS: KETOROLAC 30 MG/ML VIAL IV PRN (10:14)
[2024-07-17] MEDS: MAGNESIUM SULFATE / D5W 1 GM/100 ML BAG IV SCH (12:01)
[2024-07-17] MEDS: POLYETHYLENE (MIRALAX) 17 GM PACK PO SCH (12:27)
--- NOTE | 2024-07-17 15:53 | Urology Progress Note ---
Date of Service July 17, 2024 Assessment & Plan (1) Bilateral hydrocele: (2) Acute hypoxemic respiratory failure: Plan 74yo male who is s/p bilateral hydrocelectomy admitted to ICU postoperatively due to acute hypoxemic resp failure and complicated extubation due to morbid obesity and airway obstruction - Remains in ICU. - Pt was extubated this morning. On oxymask. - Afebrile; Labs reviewed -WBC 12.44, hemoglobin 11.9, creatinine 0.80 - Transitioned from meropenem to ertapenem for hx Kleb ESBL UTI as well as possible pneumonia - Maldonado intact and draining yellow urine with sediment. Continue to monitor. - Per pts nurse, surgical site evaluated during repositioning - scrotal dressing was intact w/ 2 rena drains w/ serosanguineous drainage. Continue to monitor. - Maintain Maldonado catheter and rena drains - Continue antibiotic therapy - Continue management per ICU team - appreciate assistance Please contact us with any questions/concerns. Attending note: Patient independently assessed, examined, interviewed, and evaluated. Agree with note as above. Patient's vitals and labs were all reviewed. Reviewed recommendations with ICU providers/team. Patient with acute on likely chronic respiratory failure postsurgical drainage of large scrotal fluid collection, bilateral hydrocelectomy, and spermatocelectomy. Patient developed respiratory failure in recovery area. Severe morbid obesity with severe chronic fluid overload issues chronic margareth pheral edema severe scrotal and lower extremity edema. And multiple comorbidities. Patient was able to be extubated this morning. Had been on oxygen mask most of the day had been transition over to BiPAP. Currently satting 97% on BiPAP. Tolerating mask without major issue. Patient independently assessed and examined today. Patient responding well to questions. Persistent tachypnea possibly at baseline. Breathing also likely at baseline for effort. Discussed patient's current diagnosis as well as concerns and issues. Patient recovering from surgical intervention. He is currently on ertapenem for possible pneumonia. Had history of Klebsiella ESBL infection of the bladder approximately a month ago that was treated with Merrem. Maldonado catheter was placed yesterday during the procedure in order to divert urine away from the surgical wounds as patient is chronically incontinent. Has significant buried penis. Urine was initially cloudy however appears to be clear and draining without major issue now. Patient undergoing close monitoring in critical care through the ICU team. Reviewed different options moving forward. I spoke extensively with patient's MPOA after procedure yesterday. Attempted to contact again today but was not able to reach patient's niece who is his MPOA at her listed number of [phone]. Patient's blood thinners can likely be restarted. Urine appears to be clear and draining well we will likely need to maintain catheter to continue diverting urine away from the surgical wounds. Patient is not complaining of any severe pain. It does not have significant tenderness. Has been able to be controlled without the use of narcotics. Would likely recommend continued avoidance of narcotics. Recommend ice, elevation and Tylenol/NSAIDs for any pain or discomfort. Recommend elevating scrotum with towels or blankets for significant edema. Has had significant reduction in scrotal edema since surgical procedure large amount of fluid had been drained off during the surgical intervention. Majority of fluid appeared to be edema around the testicles within the hemiscrotum bilaterally. Did also have large bilateral hydroceles and small b ilateral spermatoceles. Majority of fluid however did come from edema within the hemiscrotum. Scrotal skin was severely edematous. Did not appear to have formed abscess within the scrotal skin or within the hemiscrotum or the hydroceles on surgical exploration. Patient did have bilateral [place] drains placed during the surgical procedure. Recommend changing dressings around Rena drains 2-3 times daily. Will defer antibiotics to ICU team. Urine appears clear at this point and patient has not had recorded fever. Still dealing with significant respiratory issues however patient likely has severe chronic issues at baseline with significant obstructive issues. Significant morbid obesity with multiple chronic medical issues at baseline. Will plan to continue with surveillance and monitoring postsurgery. Patient does have significant chronic leg wounds with severe chronic edema of the lower extremities depending on length of hospitalization may need wound care assessment for lower extremity wounds as well as new surgical wounds on the scrotum. Patient is a resident at a nursing facility. Plan will be likely eventual discharge once stabilized back to the nursing facility. Requiring continued close monitoring and care in the ICU. Will likely need further medical management once able to be transferred from the intensive care unit. Admission and Anticipated Discharge Date Admission Date: July 16, 2024 Subjective Pt seen at bedside today in the ICU Awake and resting in bed on arrival No acute distress Patient was extubated this morning Currently denies any significant pain or discomfort Maldonado intact and draining yellow urine with sediment Per nursing, surgical site was able to be evaluated when turning/repositioning patient. Scrotal dressing was intact w/ 2 rena drains w/ serosanguineous drainage. Review of Systems Constitutional: as per Subjective / HPI Genitourinary: + as per Subjective / HPI Physical Exam Constitutional: + morbidly obese; no acute distress Respiratory: no respiratory distress Wearing oxymask Skin: Warm and dry Neurologic: awake Psychiatric: A+Ox3, euthymic affect Genitourinary: Buried penis. Maldonado intact draining yellow urine. Exam limited due to body habitus. Mild scrotal erythema. Results & Data Vital Signs (Past 12 Hours) Vital Signs Temp Pulse Resp BP Pulse Ox O2 Del Method FiO2 07/17/24 09:05 103 H 33 H 94 50 07/17/24 08:30 74 17 94 40 07/17/24 07:00 80 16 95 40 07/17/24 06:03 72 16 94 07/17/24 05:44 66 20 96 07/17/24 05:35 72 20 96 07/17/24 05:25 128/78 07/17/24 05:25 36.7 C 128/78 07/17/24 05:23 66 20 96 07/17/24 05:02 66 20 97 07/17/24 04:55 131/72 07/17/24 04:41 62 20 96 07/17/24 04:38 36.7 C 69 20 96 Mechanical Vent 60 07/17/24 04:20 77 20 94 60 07/17/24 04:08 74 20 94 07/17/24 04:00 60 07/17/24 03:55 110/69 07/17/24 03:50 64 20 94 07/17/24 03:32 71 20 94 07/17/24 03:08 75 20 94 07/17/24 02:55 105/64 07/17/24 02:53 71 20 94 07/17/24 02:50 69 20 94 07/17/24 02:41 74 20 95 07/17/24 02:32 69 20 95 07/17/24 02:25 119/73 07/17/24 02:25 119/73 07/17/24 02:23 76 20 95 07/17/24 02:11 71 20 95 07/17/24 02:02 72 20 94 07/17/24 01:56 65 20 94 07/17/24 01:55 107/71 07/17/24 01:55 107/71 07/17/24 01:55 107/71 07/17/24 01:25 119/74 07/17/24 01:15 110 H 20 94 07/17/24 00:56 121/70 07/17/24 00:56 121/70 07/17/24 00:51 65 20 93 07/17/24 00:48 72 20 93 07/17/24 00:33 73 20 93 07/17/24 00:25 37.0 C 123/76 07/17/24 00:24 67 20 94 07/17/24 00:21 68 20 94 07/17/24 00:00 73 20 93 07/17/24 00:00 60 07/16/24 23:55 82 20 93 60 07/16/24 23:55 73 07/16/24 23:48 72 20 93 07/16/24 23:33 65 20 93 07/16/24 23:26 114/67 07/16/24 23:26 114/67 07/16/24 23:24 74 20 94 07/16/24 23:21 71 20 94 PG Care Time/CCT Total # of Minutes Spent Total Time Spent with Patient: Total time spent is greater than 50% in coordination of care (as documented) at patient's floor/unit and/or counseling patient: Coding Level of Care Code 74981 SUB INP/OBS CARE 2/35MIN Diagnoses Bilateral hydrocele N43.3 Acute hypoxemic respiratory failure J96.01
[2024-07-17] MEDS: RIVAROXABAN 20 MG TAB PO SCH (16:14)
[2024-07-17] MEDS: ERTAPENEM 1000MG 1,000 MG/10 ML SYR IV SCH (17:30)
[2024-07-17] MEDS: INFLUENZA VACC TS2024-25(65y+)/PF (IIV3) 0.5mL Syr IM ONE (20:42)
[2024-07-17] MEDS: PNEUMOCOCCAL VACCINE (PCV20) 20-VAL CONJ-DIP CRM/PF 0.5 ML SYR IM ONE (20:43)
[2024-07-18 05:18] LABS: Basophils # (auto) 0.05 K/uL (0.00-0.20); Basophils % (auto) 0.4 %; Eosinophils # (auto) 0.38 K/uL (0.00-0.50); Eosinophils % (auto) 3.1 %; Hematocrit (blood only) 37.6 % (42.0-52.0); Hemoglobin 11.7 g/dl (14.0-18.0); Immature Granulocytes # (auto) 0.06 K/uL (0.01-0.20); Immature Granulocytes % (auto) 0.5 %; Lymphocytes # (auto) 0.93 K/uL (1.20-3.40); Lymphocytes % (auto) 7.5 %; Mean Corpuscular Hemoglobin 29.6 pg (25.0-34.0); Mean Corpuscular Hgb Conc 31.1 g/dL (32.0-36.0); Mean Corpuscular Volume 95.2 fL (80.0-100.0); Mean Platelet Volume 8.7 fL (9.4-12.4); Monocytes # (auto) 1.15 K/uL (0.11-0.59); Monocytes % (auto) 9.3 %; Neutrophils # (auto) 9.75 K/uL (1.40-6.50); Neutrophils % (auto) 79.2 %; Platelet Count 311 K/uL (130-400); RDW Coefficient of Variation 14.3 % (11.5-14.5); Red Blood Count 3.95 M/uL (4.70-6.10); White Blood Count 12.32 K/ul (4.8-10.8)
[2024-07-18 05:39] LABS: BUN Creatinine Ratio 19.7 (10-20); Calcium 9.1 mg/dl (8.6-10.3); Creatinine Clr Calc Pharmacy 145.4 ml/min; Magnesium 1.9 mg/dl (1.7-2.4); Phosphorus 4.4 mg/dl (2.5-4.9); Potassium 3.9 mmol/L (3.5-5.1)
--- NOTE | 2024-07-18 08:20 | Critical Care Progress Note ---
Date of Service July 18, 2024 Assessment & Plan (1) Spermatocele of epididymis, multiple: (2) Bilateral hydrocele: (3) Lower extremity edema: (4) Acute hypoxemic respiratory failure: Plan: Secondary to anesthesia and obesity hypoventilation Plan Impression: 74-year-old morbidly obese male from assisted Recommendations: PT and OT evaluations. Out of bed to chair as tolerated. Neurologic: No current issues. Avoid narcotics for respiratory suppression. Respiratory: Likely obesity hypoventilation syndrome. The patient uses BiPAP at night at home. Recommend continued nocturnal BiPAP. Incentive spirometry if the patient will be compliant. Wean oxygen as tolerated and tried defend oxygen saturations around 90%. Avoid hypoxemia. Cardiovascular: No current issues. Xarelto per primary service Gastrointestinal/Nutrition: Diet as tolerated Endocrine: Glycemic control per protocol Hold home Cheo. ISS for BG 140-180 per [facility] guidelines Infectious Disease: History of E BSL in the urine. No cultures from this hospitalization or in our medical system. White count elevated at 12,000. Defer antibiotic choice and duration to urology Renal/Electrolytes: No current issues. Maldonado per urology Heme/Onc No acute issues Patient appears to be responding appropriately. His critical care issues have resolved. He can downgrade out of the ICU. Critical care will sign off. Feel free to contact us with questions or concerns Admission and Anticipated Discharge Date Admission Date: July 16, 2024 Subjective Patient seen and examined. EMR reviewed. Discussed with bedside critical care nurse and on multidisciplinary rounds. The patient is awake alert and conversant. He used his BiPAP overnight. He reports no complaints this morning. He denies any coughing or sputum production. No chest pain or palpitations. Pain is adequately controlled. He reportedly is quite sedentary at the assisted. PT and OT evaluations have been requested. Review of Systems Review of Systems: All systems reviewed & are unremarkable except as noted in Subjective Physical Exam Constitutional: + morbidly obese; no acute distress Respiratory: no respiratory distress Wearing oxymask Skin: Warm and dry Neurologic: awake Psychiatric: A+Ox3, euthymic affect Genitourinary: Buried penis. Maldonado intact draining yellow urine. Exam limited due to body habitus. Mild scrotal erythema. Results & Data Results & Data Vital Signs (Past 12 Hours) Vital Signs Temp Pulse Resp BP Pulse Ox O2 Del Method O2 Flow Rate 07/18/24 05:26 117/64 01/25/25 05:26 117/64 07/18/24 05:24 90 20 96 07/18/24 05:14 115/71 07/18/24 05:14 115/71 07/18/24 05:03 87 33 H 93 07/18/24 05:00 82 24 94 07/18/24 04:48 90 21 93 07/18/24 04:39 175/61 H 07/18/24 04:21 86 13 93 Oxymask 5 07/18/24 04:12 90 29 H 97 07/18/24 04:03 36.7 C 94 H 29 H 97 07/18/24 03:57 96 H 25 H 97 07/18/24 03:57 132/80 07/18/24 03:57 132/80 07/18/24 03:57 132/80 07/18/24 03:39 90 19 92 07/18/24 03:26 123/65 07/18/24 03:26 123/65 07/18/24 03:21 96 H 29 H 97 07/18/24 03:00 87 24 96 07/18/24 02:24 88 23 92 07/18/24 02:00 92 H 21 95 07/18/24 01:33 98 H 24 94 07/18/24 01:00 100 H 26 H 97 07/18/24 00:56 154/78 H 07/18/24 00:56 154/78 H 07/18/24 00:39 96 H 21 97 07/18/24 00:33 92 H 24 97 BiPAP 07/18/24 00:00 36.8 C 95 H 18 96 07/18/24 00:00 93 H 07/17/24 23:56 134/78 07/17/24 23:56 134/78 07/17/24 23:56 134/78 07/17/24 23:56 134/78 07/17/24 23:54 88 20 96 07/17/24 23:45 91 H 19 96 07/17/24 23:43 99 H 23 96 07/17/24 23:27 106 H 21 96 07/17/24 23:25 134/80 07/17/24 23:25 134/80 07/17/24 23:18 85 20 96 07/17/24 23:12 98 H 18 94 07/17/24 23:06 88 21 97 07/17/24 22:51 94 H 21 95 07/17/24 22:48 86 19 96 BiPAP 07/17/24 22:35 134/71 07/17/24 22:35 134/71 07/17/24 22:27 85 19 94 07/17/24 22:09 93 H 23 93 07/17/24 21:56 136/87 07/17/24 21:45 77 21 96 07/17/24 21:33 91 H 24 97 07/17/24 21:26 120/71 07/17/24 21:18 94 H 28 H 89 L Oxymask 5 07/17/24 20:56 112/74 07/17/24 20:54 83 23 94 07/17/24 20:29 83 29 H 96 FiO2 07/18/24 05:26 07/18/24 05:26 07/18/24 05:24 07/18/24 05:14 07/18/24 05:14 07/18/24 05:03 07/18/24 05:00 07/18/24 04:48 07/18/24 04:39 07/18/24 04:21 07/18/24 04:12 40 07/18/24 04:03 07/18/24 03:57 07/18/24 03:57 07/18/24 03:57 07/18/24 03:57 07/18/24 03:39 07/18/24 03:26 07/18/24 03:26 07/18/24 03:21 07/18/24 03:00 07/18/24 02:24 07/18/24 02:00 07/18/24 01:33 07/18/24 01:00 07/18/24 00:56 07/18/24 00:56 07/18/24 00:39 07/18/24 00:33 40 07/18/24 00:00 07/18/24 00:00 07/17/24 23:56 07/17/24 23:56 07/17/24 23:56 07/17/24 23:56 07/17/24 23:54 07/17/24 23:45 07/17/24 23:43 40 07/17/24 23:27 07/17/24 23:25 07/17/24 23:25 07/17/24 23:18 07/17/24 23:12 07/17/24 23:06 07/17/24 22:51 07/17/24 22:48 40 07/17/24 22:35 07/17/24 22:35 07/17/24 22:27 07/17/24 22:09 07/17/24 21:56 07/17/24 21:45 07/17/24 21:33 07/17/24 21:26 07/17/24 21:18 07/17/24 20:56 07/17/24 20:54 07/17/24 20:29 40 Critical Care Results & Data Vital Signs (Past 12 Hours) Vital Signs Temp Pulse Resp BP Pulse Ox O2 Del Method O2 Flow Rate 07/18/24 05:26 117/64 07/18/24 05:26 117/64 07/18/24 05:24 90 20 96 07/18/24 05:14 115/71 07/18/24 05:14 115/71 07/18/24 05:03 87 33 H 93 07/18/24 05:00 82 24 94 07/18/24 04:48 90 21 93 07/18/24 04:39 175/61 H 07/18/24 04:21 86 13 93 Oxymask 5 07/18/24 04:12 90 29 H 97 07/18/24 04:03 36.7 C 94 H 29 H 97 07/18/24 03:57 96 H 25 H 97 07/18/24 03:57 132/80 07/18/24 03:57 132/80 07/18/24 03:57 132/80 07/18/24 03:39 90 19 92 07/18/24 03:26 123/65 07/18/24 03:26 123/65 07/18/24 03:21 96 H 29 H 97 07/18/24 03:00 87 24 96 07/18/24 02:24 88 23 92 07/18/24 02:00 92 H 21 95 07/18/24 01:33 98 H 24 94 07/18/24 01:00 100 H 26 H 97 07/18/24 00:56 154/78 H 07/18/24 00:56 154/78 H 07/18/24 00:39 96 H 21 97 07/18/24 00:33 92 H 24 97 BiPAP 07/18/24 00:00 36.8 C 95 H 18 96 07/18/24 00:00 93 H 07/17/24 23:56 134/78 07/17/24 23:56 134/78 07/17/24 23:56 134/78 07/17/24 23:56 134/78 07/17/24 23:54 88 20 96 07/17/24 23:45 91 H 19 96 07/17/24 23:43 99 H 23 96 07/17/24 23:27 106 H 21 96 07/17/24 23:25 134/80 07/17/24 23:25 134/80 07/17/24 23:18 85 20 96 07/17/24 23:12 98 H 18 94 07/17/24 23:06 88 21 97 07/17/24 22:51 94 H 21 95 07/17/24 22:48 86 19 96 BiPAP 07/17/24 22:35 134/71 07/17/24 22:35 134/71 07/17/24 22:27 85 19 94 07/17/24 22:09 93 H 23 93 07/17/24 21:56 136/87 07/17/24 21:45 77 21 96 07/17/24 21:33 91 H 24 97 07/17/24 21:26 120/71 07/17/24 21:18 94 H 28 H 89 L Oxymask 5 07/17/24 20:56 112/74 07/17/24 20:54 83 23 94 07/17/24 20:29 83 29 H 96 FiO2 07/18/24 05:26 07/18/24 05:26 07/18/24 05:24 07/18/24 05:14 07/18/24 05:14 07/18/24 05:03 07/18/24 05:00 07/18/24 04:48 07/18/24 04:39 07/18/24 04:21 07/18/24 04:12 40 07/18/24 04:03 07/18/24 03:57 07/18/24 03:57 07/18/24 03:57 07/18/24 03:57 07/18/24 03:39 07/18/24 03:26 07/18/24 03:26 07/18/24 03:21 07/18/24 03:00 07/18/24 02:24 07/18/24 02:00 07/18/24 01:33 07/18/24 01:00 07/18/24 00:56 07/18/24 00:56 07/18/24 00:39 07/18/24 00:33 40 07/18/24 00:00 07/18/24 00:00 07/17/24 23:56 07/17/24 23:56 07/17/24 23:56 07/17/24 23:56 07/17/24 23:54 07/17/24 23:45 07/17/24 23:43 40 07/17/24 23:27 07/17/24 23:25 07/17/24 23:25 07/17/24 23:18 07/17/24 23:12 07/17/24 23:06 07/17/24 22:51 07/17/24 22:48 40 07/17/24 22:35 07/17/24 22:35 07/17/24 22:27 07/17/24 22:09 07/17/24 21:56 07/17/24 21:45 07/17/24 21:33 07/17/24 21:26 07/17/24 21:18 07/17/24 20:56 07/17/24 20:54 07/17/24 20:29 40 Lab & Micro Results (Past 24 Hours) RBC 3.95 M/uL (4.70-6.10) L 07/18/24 WBC 12.32 K/ul (4.8-10.8) H 07/18/24 Hgb 11.7 g/dl (14.0-18.0) L 07/18/24 Hct 37.6 % (42.0-52.0) L 07/18/24 MCV 95.2 fL (80.0-100.0) 07/18/24 MCH 29.6 pg (25.0-34.0) 07/18/24 MCHC 31.1 g/dL (32.0-36.0) L 07/18/24 RDW Standard Deviation 50.0 fL (36.4-46.3) H 07/18/24 RDW Coefficient of Variation 14.3 % (11.5-14.5) 07/18/24 Plt Count 311 K/uL (130-400) 07/18/24 MPV 8.7 fL (9.4-12.4) L 07/18/24 Neutrophils (%) (Auto) 79.2 % 07/18/24 Lymphocytes (%) (Auto) 7.5 % 07/18/24 Monocytes # (Auto) 1.15 K/uL (0.11-0.59) H 07/18/24 Eosinophils # (Auto) 0.38 K/uL (0.00-0.50) 07/18/24 Immature Granulocyte % (Auto) 0.5 % 07/18/24 Neutrophils # (Auto) 9.75 K/uL (1.40-6.50) H 07/18/24 Lymphocytes # (Auto) 0.93 K/uL (1.20-3.40) L 07/18/24 Monocytes # (Auto) 1.15 K/uL (0.11-0.59) H 07/18/24 Eosinophils # (Auto) 0.38 K/uL (0.00-0.50) 07/18/24 Basophils # (Auto) 0.05 K/uL (0.00-0.20) 07/18/24 Immature Granulocyte # (Auto) 0.06 K/uL (0.01-0.20) 5 Na 140 mmol/L (136-145) 07/18/24 K 3.9 mmol/L (3.5-5.1) 07/18/24 Cl 98 mmol/L (98-107) 07/18/24 CO2 36 mmol/L (21-32) H 07/18/24 Anion Gap 6 (3-11) 07/18/24 BUN 15 mg/dl (6-23) 07/18/24 Creatinine 0.76 mg/dl (0.6-1.4) 07/18/24 BUN/Creatinine Ratio 19.7 (10-20) 07/18/24 Glu 114 mg/dl (70-99(Fasting)) H 07/18/24 Ca 9.1 mg/dl (8.6-10.3) 07/18/24 Phosphorus Level 4.4 mg/dl (2.5-4.9) 07/18/24 Mg 1.9 mg/dl (1.7-2.4) 07/18/24 04:56 Calcium Level 9.1 mg/dl (8.6-10.3) 07/18/24 04:56 I & O Totals 24 Hours 07/17/24 07/18/24 07/19/24 06:59 06:59 06:59 Intake Total 1617.420 / 1617.420 466.16 / 466.16 0 / 0 Output Total 955 / 955 1380 / 1380 Balance 662.420 / 662.420 -913.84 / -913.84 0 / 0 Cumulative 06/18/24 16:45 thru 07/18/24 07:00 Intake Total 2083.580 Output Total 2335 Balance -251.420 RT Ventilator Mngmt (Last Documented) Ventilator Ordered Settings Ventilator Support Mode CPAP 07/17/24 08:30 Respiratory Rate 20 07/18/24 05:24 Ventilator Tidal Volume 500 07/17/24 07:00 Setting Minute Ventilation 9.5 07/17/24 08:30 Ventilator Positive Pressure 10 07/17/24 08:30 Support Setting Positive End Expiratory 10 07/17/24 08:30 Pressure Fraction of Inspired Oxygen 40 07/18/24 04:12 Peak Inspiratory Flow 40 07/16/24 15:42 Machine Comment vent changes done on previous 07/17/24 07:00 shift Ventilator - PT Measurements Respiratory Rate 20 Exhaled Tidal Volume 495 Minute Ventilation 9.5 Peak Inspiratory Airway 23 Pressure Plateau Pressure 20 Respiratory Cycle Inspiratory: 1:2.7 Expiratory Ratio Inspiratory Phase Time 0.98 End-Tidal CO2 38 Static Lung Compliance 49.90 Dynamic Lung Compliance 38.08 Normal Static Lung Compliance 48.00 Patient Measurements Comment patient extubated to BIPAP 50%O2 and SPO2 94% Coding Level of Care Code 39652 SUB INP/OBS CARE 3/50MIN Diagnoses Spermatocele of epididymis, multiple N43.42 Bilateral hydrocele N43.3 Lower extremity edema R60.0 Acute hypoxemic respiratory failure J96.01
--- NOTE | 2024-07-18 10:29 | Urology Progress Note ---
Date of Service July 18, 2024 Assessment & Plan (1) Bilateral hydrocele: (2) Acute hypoxemic respiratory failure: Plan 74yo male who is s/p bilateral hydrocelectomy admitted to ICU postoperatively due to acute hypoxemic resp failure and complicated extubation due to morbid obesity and airway obstruction Patient independently assessed, examined, interviewed, and evaluated. Patient's vitals and labs were all reviewed. Reviewed recommendations with ICU providers/team. - Remains in ICU. - Pt was extubated yesterday. Bipap overnight. On oxymask satting high 90's. - Afebrile; Labs reviewed - Maintain Burr catheter and rena drains Will need chronic wound management for LE and for new scrotal wounds. Dressing change 2-4 x daily as needed. - Continue management per ICU team Patient with acute on likely chronic respiratory failure postsurgical drainage of large scrotal fluid collection, bilateral hydrocelectomy, and spermatocelectomy. Patient developed respiratory failure in recovery area. Severe morbid obesity with severe chronic fluid overload issues chronic peripheral edema severe scrotal and lower extremity edema and severe chronic comorbidities. Patient denies following with other specialists though has significant baseline issues. Tolerating mask without major issue. Patient responding well to questions. Persistent tachypnea possibly at baseline. Breathing also likely at baseline for effort. Discussed patient's current diagnosis as well as concerns and issues. Patient recovering from surgical intervention. Abx stopped yesterday. Had history of Klebsiella ESBL infection of the bladder approximately a month ago that was treated with Merrem. Concern for PNA but ICU decided to hold. Burr catheter to divert urine away from the surgical wounds as patient is chronically incontinent. Has significant buried penis. Urine clear and draining without major issue now. Patient undergoing close monitoring in critical care through the ICU team. Reviewed different options moving forward. I spoke extensively with patient's MPOA after procedure. Attempted to contact again today, Saturday, but was not able to reach patient's niece who is his MPOA at her listed number of [phone]. Patient is not complaining of any severe pain. Scrotum does not have significant tenderness. Has been able to be controlled without the use of narcotics. Would likely recommend continued avoidance of narcotics. Recommend ice, elevation and Tylenol/NSAIDs for any pain or discomfort. Recommend elevating scrotum with towels or blankets for significant edema. Has had significant reduction in scrotal edema since surgical procedure large amount of fluid had been drained off during the surgical intervention. Majority of fluid appeared to be edema around the testicles within the hemiscrotum bilaterally. Did also have large bilateral hydroceles and small bilateral spermatoceles. Majority of fluid however did come from edema within the hemiscrotum. Scrotal skin was severely edematous. Did not appear to have formed abscess within the scrotal skin or within the hemiscrotum or the hydroceles on surgical exploration. Patient did have bilateral [place] drains placed during the surgical procedure. Recommend wound care for management. Will plan to continue with surveillance and monitoring postsurgery. Patient does have significant chronic leg wounds with severe chronic edema of the lower extremities depending on length of hospitalization may need wound care assessment for lower extremity wounds as well as new surgical wounds on the scrotum. Patient is a resident at a nursing facility. Plan will be likely eventual discharge once stabilized back to the nursing facility. Requiring continued close monitoring and care in the ICU. Continued critical management and monitoring. Will defer to ICU team as when patient would be stable for transfer to floor/hospitalist management. Will likely need further medical management once able to be transferred from the intensive care unit. Admission and Anticipated Discharge Date Admission Date: July 16, 2024 Subjective Pt seen at bedside today in the ICU Awake and resting in bed on arrival. Per patient back to baseline. Sig Chronic medical and Resp issues. Patient denies following with pulmonology or other specialists. No acute distress Patient was extubated yesterday. Did need bipap overnight. Currently denies any significant pain or discomfort Burr intact and draining yellow urine. Tolerating Scrotal dressing was intact w/ 2 rena drains w/ serosanguineous drainage. Review of Systems Review of Systems: All systems reviewed & are unremarkable except as noted in HPI & below Physical Exam Physical Exam: General: Alert in no acute distress. Morbidly obese. Sedentary/bed bound at baseline. HEENT: Normocephalic Atraumatic. Inspection normal. Cranial Nerves 2-12 Grossly intact. Normal inspection of face. Normal inspection of neck. Psychologic: Normal affect. Respiratory: Tachypnea. Increased effort, likely baseline. Cardiovascular: No tachycardia Skin: [place] and Dry. Chronic leg wounds. Extremities/Lymphatics: Severe peripheral edema. Abdomen: Morbid obesity. Distended. : burr draining clear yellow. Drains with serosanguineous drainage. Results & Data Vital Signs (Past 12 Hours) Vital Signs Temp Pulse Resp BP Pulse Ox O2 Del Method O2 Flow Rate 07/18/24 08:30 86 31 H 95 07/18/24 08:12 90 34 H 90 07/18/24 07:45 Oxymask 5 07/18/24 07:43 36.9 C 07/18/24 07:33 88 92 07/18/24 07:26 120/66 07/18/24 07:24 84 21 94 Oxymask 5 07/18/24 07:06 91 H 31 H 95 07/18/24 05:26 117/64 07/18/24 05:26 117/64 07/18/24 05:24 90 20 96 07/18/24 05:14 115/71 07/18/24 05:14 115/71 07/18/24 05:03 87 33 H 93 07/18/24 05:00 82 24 94 07/18/24 04:48 90 21 93 07/18/24 04:39 175/61 H 07/18/24 04:21 86 13 93 Oxymask 5 07/18/24 04:12 90 29 H 97 07/18/24 04:03 36.7 C 94 H 29 H 97 07/18/24 03:57 96 H 25 H 97 07/18/24 03:57 132/80 07/18/24 03:57 132/80 07/18/24 03:57 132/80 07/18/24 03:39 90 19 92 07/18/24 03:26 123/65 07/18/24 03:26 123/65 07/18/24 03:21 96 H 29 H 97 07/18/24 03:00 87 24 96 07/18/24 02:24 88 23 92 07/18/24 02:00 92 H 21 95 07/18/24 01:33 98 H 24 94 07/18/24 01:00 100 H 26 H 97 07/18/24 00:56 154/78 H 07/18/24 00:56 154/78 H 07/18/24 00:39 96 H 21 97 07/18/24 00:33 92 H 24 97 BiPAP 07/18/24 00:00 36.8 C 95 H 18 96 07/18/24 00:00 93 H 07/17/24 23:56 134/78 07/17/24 23:56 134/78 07/17/24 23:56 134/78 07/17/24 23:56 134/78 07/17/24 23:54 88 20 96 07/17/24 23:45 91 H 19 96 07/17/24 23:43 99 H 23 96 07/17/24 23:27 106 H 21 96 07/17/24 23:25 134/80 07/17/24 23:25 134/80 07/17/24 23:18 85 20 96 07/17/24 23:12 98 H 18 94 07/17/24 23:06 88 21 97 07/17/24 22:51 94 H 21 95 07/17/24 22:48 86 19 96 BiPAP 07/17/24 22:35 134/71 07/17/24 22:35 134/71 07/17/24 22:27 85 19 94 FiO2 07/18/24 08:30 07/18/24 08:12 07/18/24 07:45 07/18/24 07:43 07/18/24 07:33 07/18/24 07:26 07/18/24 07:24 07/18/24 07:06 07/18/24 05:26 07/18/24 05:26 07/18/24 05:24 07/18/24 05:14 07/18/24 05:14 07/18/24 05:03 07/18/24 05:00 07/18/24 04:48 07/18/24 04:39 07/18/24 04:21 07/18/24 04:12 40 07/18/24 04:03 07/18/24 03:57 07/18/24 03:57 07/18/24 03:57 07/18/24 03:57 07/18/24 03:39 07/18/24 03:26 07/18/24 03:26 07/18/24 03:21 07/18/24 03:00 07/18/24 02:24 07/18/24 02:00 07/18/24 01:33 07/18/24 01:00 07/18/24 00:56 07/18/24 00:56 07/18/24 00:39 07/18/24 00:33 40 07/18/24 00:00 07/18/24 00:00 07/17/24 23:56 07/17/24 23:56 07/17/24 23:56 07/17/24 23:56 07/17/24 23:54 07/17/24 23:45 07/17/24 23:43 40 07/17/24 23:27 07/17/24 23:25 07/17/24 23:25 07/17/24 23:18 07/17/24 23:12 07/17/24 23:06 07/17/24 22:51 07/17/24 22:48 40 07/17/24 22:35 07/17/24 22:35 07/17/24 22:27 PG Care Time/CCT Total # of Minutes Spent Total Time Spent with Patient: Total time spent is greater than 50% in coordination of care (as documented) at patient's floor/unit and/or counseling patient: Coding Level of Care Code 30090 SUB INP/OBS CARE 3/50MIN Diagnoses Bilateral hydrocele N43.3 Acute hypoxemic respiratory failure J96.01
--- NOTE | 2024-07-18 15:25 | Hospitalist Consultation ---
Date of Consultation July 18, 2024 Assessment & Plan (1) Acute hypoxemic respiratory failure: (2) Acute metabolic encephalopathy: (3) Diabetes mellitus, type 2: (4) Chronic atrial fibrillation: (5) Spermatocele of epididymis, multiple: Plan 74 y/o man with morbid obesity, JERICA, DM2, leg and scrotal edema who underwent drainage of large scrotal fluid collection, bilateral hydrocelectomy, and spermatocelectomy by Dr. Orona 07/16/24. He developed acute respiratory failure in recovery, was intubated and mechanically vented in ICU through AM of 07/17. Extubated with bipap and facemask oxygen. Stable overnight and ready for lower level of care. #Acute on likely chronic hypoxemic respiratory failure - related to anesthesia and JERICA, likely OHS -continues with severe hypoxia to the mid-70s when on room air. continue supp O2 -night time Bipap. query whether he has this at the nursing facility -futter valve / IS -mobility as much as possible -avoid opioids and sedating medications -abg/vbg if mental or respiratory status worsens, will be prone to hypercarbia # postop from drainage of large scrotal fluid collection, bilateral hydrocelectomy, and spermatocelectomy on 07/16 -postop care per urology -still with rena drains, burr catheter -no longer on antibiotics. Ceftriaxone 07/16, meropenem 07/16-, ertapenem 07/17. history of recent ESBL Klebsiella UTI. No urine or blood cultures taken. # acute metabolic encephalopathy - related to respiratory failure, anesthesia, surgery, opioids. Per nursing staff mentation improved today. Still confused, forgetful and makes repetitive and inappropriate requests -avoid sedating medications, minimize opioids, reorientation/redirection, abg if somnolent # massive LE edema - chronic. unclear to me whether all lymphedema or component of heart failure. Does not carry this diagnosis based on my review of nursing facility records # DM type 2 - tirzepatide held, diabetic diet, PRN short acting insulin. AM A1c # Chronic atrial fibrillation - continue xarelto, not on rate control medication HTN - per history, not on meds HLD - continue statin Morbid obesity BMI 55 - tirzepatide held Mitral regurgitation DVT ppx - xarelto PT/OT Resident of nursing facility History of Present Illness Reason for Consultation: Evaluate acute respiratory failure, JERICA/OHS, acute metabolic encephalopathy, diabetes, afib Requesting Physician: Dr. Orona Attending Physician: Gabriele Orona, II, DO History of Present Illness 74 y/o man with morbid obesity, JERICA, DM2, leg and scrotal edema who underwent drainage of large scrotal fluid collection, bilateral hydrocelectomy, and spermatocelectomy by Dr. Orona 07/16/24. He developed acute respiratory failure in recovery, was intubated and mechanically vented in ICU through AM of 07/17. Extubated with bipap and facemask oxygen. Stable overnight and ready for lower level of care. Continues to have significant hypoxia especially when sleeping. Desats to 70%s on room air when he pulls his O2 off. He is confused with improving mental status. Denies chest pain or shortness of breath. Has loose/wet cough. Says he's supposed to get his Bipap from the doctor "tonight." Otherwise says that he doesn't use CPAP/Bipap or oxygen usually. No abdominal or scrotal pain. Per nursing staff ate his whole food tray. Allergies Allergy/AdvReac Type Severity Reaction Status Date / Time No Known Allergies Allergy Verified 06/19/24 12:32 Home Medications Medication Instructions Recorded Confirmed Type acetaminophen 325 mg tablet 325 mg PO QID PRN Pain 06/16/24 07/16/24 History (Tylenol) atorvastatin 40 mg tablet 40 mg PO HS 06/16/24 07/16/24 History cholecalciferol (vitamin D3) 50 50 mcg PO DAILY 06/16/24 07/16/24 History mcg (2,000 unit) capsule diclofenac sodium 1 % topical gel 2 g topical BID 06/16/24 07/16/24 History (Aleve (diclofenac)) furosemide 20 mg tablet (Lasix) 20 mg PO DAILY 06/16/24 07/16/24 History furosemide 40 mg tablet (Lasix) 40 mg PO DAILY 06/16/24 07/16/24 History gabapentin 100 mg capsule 100 mg PO BID 06/16/24 07/16/24 History (Neurontin) hyoscyamine sulfate 0.125 mg 0.25 mg PO Q6 PRN Nausea 06/16/24 07/16/24 History sublingual tablet loperamide 2 mg capsule 2 mg PO Q6H PRN Loose Stool 06/16/24 07/16/24 History melatonin 5 mg capsule 10 mg PO HS 06/16/24 07/16/24 History rivaroxaban 20 mg tablet (Xarelto) 20 mg PO DAILY 06/16/24 07/16/24 History sennosides 8.6 mg tablet (Senna 17.2 mg PO BID PRN Constipation 06/16/24 07/16/24 History Laxative) tirzepatide 2.5 mg/0.5 mL 2.5 mg subcut WK 06/16/24 07/16/24 History subcutaneous pen injector (Mounjaro) bisacodyl 10 mg rectal suppository 10 mg [place] PM PRN Constipation 06/19/24 07/16/24 History (Dulcolax (bisacodyl)) guaifenesin 100 mg/5 mL oral liquid 300 mg PO Q6 PRN Cough 06/19/24 07/16/24 History lactulose 20 gram/30 mL oral 20 g PO QAM PRN Constipation 06/19/24 07/16/24 History solution mineral oil 118 ml [place] QAM PRN Constipation 06/19/24 07/16/24 History sennosides 8.6 mg-docusate sodium 1 tab-cap PO HS 06/19/24 07/16/24 History 50 mg tablet ciprofloxacin HCl 500 mg tablet 500 mg PO Q12H #14 tabs 07/16/24 Rx (Cipro) oxycodone 5 mg tablet 5 mg PO Q6H PRN pain #6 tabs 07/16/24 Rx tamsulosin 0.4 mg capsule 0.4 mg PO HS #30 caps 07/16/24 Rx Patient History Medical History On anticoagulant therapy xarelto daily for a formerly [facility] resident BMI 50.0-59.9, adult Insomnia Bilateral hydrocele Osteoarthritis Obstructive sleep apnea Nonrheumatic mitral (valve) insufficiency Chronic atrial fibrillation on Xarelto Hyperlipemia Essential (primary) hypertension Muscle weakness (generalized) Diabetes mellitus, type 2 Surgical History Surgical history unknown Family History Other Family history unknown Social History Smoking Status: Unknown if ever smoked Preferred Language: Lithuanian Communication Ability: Impaired Solution Design And Analysis Manager Required: No Beliefs That Will Affect Care: None Current Living Situation: Care Home Current Living Situation Comment: resides at [facility] in [place] Assistive Devices: Wheelchair Physical Exam 2 Physical Exam: PHYSICAL EXAMINATION Last 24h vital signs reviewed, see documentation in flowsheet General: comfortable appearing, no distress HEENT: Normocephalic, atraumatic, pupils round and equal, sclerae anicteric, no conjunctival injection, moist mucus membranes Lungs: hypoventilates, coarse breath sounds bilaterally anteriorly, no wheezing Heart: very distant, regular, cannot see neck veins Abdomen: Soft, nontender, nondistended. Bowel sounds present. Extremities: Warm, dry, well-perfused. 4+ lower extremity edema. scrotum is currently dressed elevated on towels Neuro: Alert and oriented x self, hospital, partially to situation, makes a lot of illogical or inappropriate statements, face symmetric, moves 4 extremities Psych: irritable affect and behavior Results & Data Results & Data Vital Signs (Past 12 Hours) Vital Signs Temp Pulse Resp BP Pulse Ox Pulse Ox O2 Del Method 07/18/24 14:40 94 07/18/24 08:30 86 31 H 95 07/18/24 08:12 90 34 H 90 07/18/24 07:45 Oxymask 07/18/24 07:43 98.4 F 07/18/24 07:33 88 92 07/18/24 07:26 120/66 07/18/24 07:24 84 21 94 Oxymask 07/18/24 07:06 91 H 31 H 95 07/18/24 05:26 117/64 07/18/24 05:26 117/64 07/18/24 05:24 90 20 96 07/18/24 05:14 115/71 07/18/24 05:14 115/71 07/18/24 05:03 87 33 H 93 07/18/24 05:00 82 24 94 07/18/24 04:48 90 21 93 07/18/24 04:39 175/61 H 07/18/24 04:21 86 13 93 Oxymask 07/18/24 04:12 90 29 H 97 07/18/24 04:03 98.1 F 94 H 29 H 97 07/18/24 03:57 96 H 25 H 97 07/18/24 03:57 132/80 07/18/24 03:57 132/80 07/18/24 03:57 132/80 07/18/24 03:39 90 19 92 07/18/24 03:26 123/65 07/18/24 03:26 123/65 07/18/24 03:21 96 H 29 H 97 O2 Flow Rate O2 Flow Rate FiO2 07/18/24 14:40 5 07/18/24 08:30 07/18/24 08:12 07/18/24 07:45 5 07/18/24 07:43 07/18/24 07:33 07/18/24 07:26 07/18/24 07:24 5 07/18/24 07:06 07/18/24 05:26 07/18/24 05:26 07/18/24 05:24 07/18/24 05:14 07/18/24 05:14 07/18/24 05:03 07/18/24 05:00 07/18/24 04:48 07/18/24 04:39 07/18/24 04:21 5 07/18/24 04:12 40 07/18/24 04:03 07/18/24 03:57 07/18/24 03:57 07/18/24 03:57 07/18/24 03:57 07/18/24 03:39 07/18/24 03:26 07/18/24 03:26 07/18/24 03:21 Laboratory Results 07/18/24 04:56 07/18/24 04:56 Diagnostic Findings 07/18/24 04:56 07/18/24 04:56 PG Care Time/CCT Total # of Minutes Spent Total Time Spent with Patient: Total time spent is greater than 50% in coordination of care (as documented) at patient's floor/unit and/or counseling patient: Coding Level of Care Code 42293 IN/OBS CONSULT LVL 4,60M Diagnoses Acute hypoxemic respiratory failure J96.01 Acute metabolic encephalopathy G93.41 Diabetes mellitus, type 2 E11.9 Chronic atrial fibrillation I48.20 Spermatocele of epididymis, multiple N43.42
[2024-07-18] MEDS ORDERED: SENNA 8.6 MG TAB PO PRN (16:19)
[2024-07-18] MEDS ORDERED: MELATONIN 3 MG TAB PO PRN (16:19)
[2024-07-18] MEDS: TORSEMIDE 20 MG TAB PO SCH (19:28)
[2024-07-18 22:37] LABS: Base Excess VBG 14.4 mEq/L; HCO3 VBG 43 mmol/L; Oxygen Saturation VBG < 60.0 %; PCO2 VBG 75 mmHg (38-50); PO2 VBG 25 mmHg; pH VBG 7.37 (7.36-7.41)
[2024-07-19] MEDS: ERTAPENEM 1000MG 1,000 MG/10 ML SYR IV SCH (00:40)
--- NOTE | 2024-07-19 02:06 | XRay Report ---
Exam(s): XR CXR 1 VIEW EXAM: XR Chest, 1 View CLINICAL HISTORY: Reason for exam: hypoxia. TECHNIQUE: Frontal view of the chest. COMPARISON: Prior chest x-ray from July 17, 2024. FINDINGS: Lungs: Moderate to heavy peribronchial thickening of the central and lower lobe bronchi with bilateral lower lobe infiltrates. No consolidation. Pleural space: Small left pleural effusion. No pneumothorax. Heart: Mild cardiomegaly. Mediastinum: Unremarkable. Normal mediastinal contour. Bones/joints: Unremarkable. No acute fracture. IMPRESSION: Bilateral lower lobe infiltrates with small left pleural effusion. Electronically signed by: Dominique Meza MD 07/19/24 02:05 AM
[2024-07-19 07:15] LABS: Basophils # (auto) 0.03 K/uL (0.00-0.20); Basophils % (auto) 0.3 %; Eosinophils # (auto) 0.49 K/uL (0.00-0.50); Eosinophils % (auto) 5.1 %; Hematocrit (blood only) 35.2 % (42.0-52.0); Hemoglobin 11.1 g/dl (14.0-18.0); Immature Granulocytes # (auto) 0.04 K/uL (0.01-0.20); Immature Granulocytes % (auto) 0.4 %; Lymphocytes # (auto) 1.35 K/uL (1.20-3.40); Mean Corpuscular Hemoglobin 29.8 pg (25.0-34.0); Mean Corpuscular Hgb Conc 31.5 g/dL (32.0-36.0); Mean Corpuscular Volume 94.6 fL (80.0-100.0); Mean Platelet Volume 9.2 fL (9.4-12.4); Monocytes # (auto) 0.98 K/uL (0.11-0.59); Monocytes % (auto) 10.2 %; Neutrophils # (auto) 6.75 K/uL (1.40-6.50); Platelet Count 299 K/uL (130-400); RDW Coefficient of Variation 14.1 % (11.5-14.5); Red Blood Count 3.72 M/uL (4.70-6.10); White Blood Count 9.64 K/ul (4.8-10.8)
[2024-07-19 07:47] LABS: BUN Creatinine Ratio 20.6 (10-20); Calcium 8.8 mg/dl (8.6-10.3); Creatinine Clr Calc Pharmacy 173.7 ml/min; Magnesium 1.8 mg/dl (1.7-2.4); Phosphorus 3.1 mg/dl (2.5-4.9); Potassium 3.2 mmol/L (3.5-5.1)
[2024-07-19] MEDS: POTASSIUM CHLORIDE CRTAB 20 MEQ TABCR PO SCH (09:41)
[2024-07-19] MEDS: MAGNESIUM SULFATE / D5W 1 GM/100 ML BAG IV SCH (09:41)
--- NOTE | 2024-07-19 10:45 | Urology Progress Note ---
Date of Service July 19, 2024 Assessment & Plan (1) Bilateral hydrocele: (2) Acute hypoxemic respiratory failure: Plan 74yo male who is s/p bilateral hydrocelectomy admitted to ICU postoperatively due to acute hypoxemic resp failure and complicated extubation due to morbid obesity and airway obstruction Patient independently assessed, examined, interviewed, and evaluated. Patient's vitals and labs were all reviewed. Low grade fever last PM. Possible resp infection with significant risk secondary to severe chronic resp issues. Restarted Abx overnight. White count normalized. No further fever. Mild hypotension this am. Patient on nasal cannula today and still satting at 95%. All labs and vitals were reviewed. White count down to 9.64. Creatinine at 0.63 - Maintain Burr catheter and rena drains. Wound assessment ordered. - Will need chronic wound management for LE and for new scrotal wounds. Dressing change 2-4 x daily as needed. - Medical management with Hospitalist. Will likely need transition plan for back to Nursing facility when ready for discharge. Patient with acute on likely chronic respiratory failure postsurgical drainage of large scrotal fluid collection, bilateral hydrocelectomy, and spermatocelectomy. Patient developed respiratory failure in recovery area. Severe morbid obesity with severe chronic fluid overload issues chronic peripheral edema severe scrotal and lower extremity edema and severe chronic comorbidities. Patient denies following with other specialists though has significant baseline issues. Tolerating mask without major issue. Patient responding well to questions. Persistent tachypnea possibly at baseline. Breathing also likely at baseline for effort. Discussed patient's current diagnosis as well as concerns and issues. Patient recovering from surgical intervention. Had history of Klebsiella ESBL infection of the bladder approximately a month ago that was treated with Merrem. Concern for PNA but ICU decided to hold. Burr catheter to divert urine away from the surgical wounds as patient is chronically incontinent. Has significant buried penis. Urine clear and draining without major issue now. Patient is not complaining of any severe pain. Scrotum does not have significant tenderness. Has been able to be controlled without the use of narcotics. Would likely recommend continued avoidance of narcotics. Recommend ice, elevation and Tylenol/NSAIDs for any pain or discomfort. Recommend elevating scrotum with towels or blankets for significant edema. Has had significant reduction in scrotal edema since surgical procedure large amount of fluid had been drained off during the surgical intervention. Majority of fluid appeared to be edema around the testicles within the hemiscrotum bilaterally. Did also have large bilateral hydroceles and small bilateral spermatoceles. Majority of fluid however did come from edema within the hemiscrotum. Scrotal skin was severely edematous. Did not appear to have formed abscess within the scrotal skin or within the hemiscrotum or the hydroceles on surgical exploration. Patient did have bilateral [place] drains placed during the surgical procedure. Recommend wound care for management. Will plan to continue with surveillance and monitoring postsurgery. Patient does have significant chronic leg wounds with severe chronic edema of the lower extremities depending on length of hospitalization may need wound care assessment for lower extremity wounds as well as new surgical wounds on the scrotum. Patient is a resident at a nursing facility. Plan will be likely eventual discharge once stabilized back to the nursing facility. Admission and Anticipated Discharge Date Admission Date: July 16, 2024 Subjective Pt seen at bedside after transfer from ICU Awake and resting in bed. Had low grade fever last evening. Abx restarted due to presumed Resp issues. Per patient back to baseline. Significant Chronic medical and Resp issues. Patient denies following with pulmonology or other specialists. No acute distress Continues to need oxygen support with mask and bipap overnight. Currently denies any significant pain or discomfort Burr intact and draining yellow urine. Tolerating Scrotal dressing was intact w/ 2 rena drains w/ serosanguineous drainage. Review of Systems Review of Systems: All systems reviewed & are unremarkable except as noted in HPI & below Physical Exam Physical Exam: General: Alert in no acute distress. Morbidly obese. Sedentary/bed bound at baseline. HEENT: Normocephalic Atraumatic. Inspection normal. Cranial Nerves 2-12 Grossly intact. Normal inspection of face. Normal inspection of neck. Psychologic: Normal affect. Respiratory: Tachypnea. Increased effort, likely baseline. Cardiovascular: No tachycardia Skin: [place] and Dry. Chronic leg wounds. Extremities/Lymphatics: Severe peripheral edema. Abdomen: Morbid obesity. Distended. : burr draining clear yellow. Drains with serosanguineous drainage. Results & Data Vital Signs (Past 12 Hours) Vital Signs Temp Pulse Pulse Resp BP Pulse Ox O2 Del Method 07/19/24 09:49 Oxymask 07/19/24 09:36 69 07/19/24 08:16 36.8 C 81 20 91/63 L 96 Nasal Cannula 07/19/24 04:28 81 26 H 96 07/19/24 02:55 36.8 C 83 20 124/64 98 CPAP 07/18/24 23:44 78 07/18/24 22:43 BiPAP O2 Flow Rate 07/19/24 09:49 6 07/19/24 09:36 07/19/24 08:16 11 07/19/24 04:28 10 07/19/24 02:55 07/18/24 23:44 07/18/24 22:43 10 PG Care Time/CCT Total # of Minutes Spent Total Time Spent with Patient: Total time spent is greater than 50% in coordination of care (as documented) at patient's floor/unit and/or counseling patient: Coding Level of Care Code 02163 SUB INP/OBS CARE 3/50MIN Diagnoses Bilateral hydrocele N43.3 Acute hypoxemic respiratory failure J96.01
[2024-07-19] MEDS: TORSEMIDE 20 MG TAB PO SCH (16:36)
[2024-07-19] MEDS: acetaZOLAMIDE 250 MG TAB PO SCH (16:36)
--- NOTE | 2024-07-19 17:58 | Hospitalist Progress Note ---
Date of Service July 19, 2024 Assessment & Plan (1) Acute hypoxemic respiratory failure: (2) Acute metabolic encephalopathy: (3) Diabetes mellitus, type 2: (4) Chronic atrial fibrillation: (5) Spermatocele of epididymis, multiple: Plan 74 y/o man with morbid obesity, JERICA, DM2, leg and scrotal edema who underwent drainage of large scrotal fluid collection, bilateral hydrocelectomy, and spermatocelectomy by Dr. Orona 07/16/24. He developed acute respiratory failure in recovery, was intubated and mechanically vented in ICU through AM of 07/17. Extubated with bipap and facemask oxygen. Stable overnight and ready for lower level of care. #Acute on likely chronic hypoxemic and hypercarbic respiratory failure - related to anesthesia and JERICA/OHS -continues with severe hypoxia to 80% when on room air. continue supp O2 -night time Bipap. he takes it off frequently and was described as more confused during the night. VBG this morning 7 -futter valve / IS -mobility as much as possible -avoid opioids and sedating medications -abg/vbg if mental or respiratory status worsens, he is hypercarbic - discussed plan of care with PCU nurses # postop from drainage of large scrotal fluid collection, bilateral hydrocelectomy, and spermatocelectomy on 07/16 -postop care per urology -still with rena drains, burr catheter -Ceftriaxone 07/16, meropenem 07/16-, ertapenem 07/17--> ertapenem continued by Dr. Orona because of low-grade fever. history of recent ESBL Klebsiella UTI. No urine or blood cultures taken. - discussed plan of care with Dr. Orona # acute metabolic encephalopathy - related to respiratory failure, anesthesia, surgery, opioids. Per nursing staff mentation improved today. Still confused, forgetful and makes repetitive and inappropriate requests -avoid sedating medications, minimize opioids, reorientation/redirection, abg if somnolent # massive LE edema - chronic. unclear to me whether all lymphedema or component of heart failure. Does not carry this diagnosis based on my review of nursing facility records - TTE tomorrow - has had large urine output with diuresis with oral torsemide, decrease dose to 40 mg p.o. every morning added 250 mg acetazolamide every morning for alkalosis. reduced diuretics because blood pressure is softer this evening - replacing hypokalemia p.o. # DM type 2 - tirzepatide held, diabetic diet, PRN short acting insulin. A1c pending # Chronic atrial fibrillation - continue xarelto, intrinsically rate controlled HTN - per history, not on meds HLD - continue statin Morbid obesity BMI 55 - tirzepatide held Mitral regurgitation DVT ppx - xarelto PT/OT Resident of nursing facility Admission and Anticipated Discharge Date Admission Date: July 16, 2024 Subjective He was repetitively taking his BiPAP off overnight, thus more hypercarbic this morning however his mental status for me is actually better today than yesterday he is still confused we had a long discussion about how important it was for him to use nocturnal BiPAP he was able to better follow this conversation today he is not having any pain from his surgical site on his scrotum Physical Exam 2 Physical Exam: PHYSICAL EXAMINATION Last 24h vital signs reviewed, see documentation in flowsheet General: awake and alert sitting in the room HEENT: Normocephalic, atraumatic, pupils round and equal, sclerae anicteric, no conjunctival injection, moist mucus membranes Lungs: hypoventilates, clear to auscultation bilaterally anteriorly without wheezing Heart: very distant, regular, cannot see neck veins Abdomen: Soft, nontender, nondistended. Bowel sounds present. Extremities: Warm, dry, well-perfused. 4+ lower extremity edema. scrotum is currently dressed Neuro: Alert and oriented x self, hospital, oriented to basic situation, face symmetric, moves 4 extremities Psych: less irritable and inappropriate today Results & Data Results & Data Vital Signs (Past 12 Hours) Vital Signs Temp Pulse Pulse Resp BP BP Pulse Ox 07/19/24 15:40 98.2 F 82 18 93/74 L 95 07/19/24 15:39 79 07/19/24 10:48 81 18 101/76 95 07/19/24 09:49 07/19/24 09:36 69 07/19/24 08:16 98.2 F 81 20 91/63 L 96 O2 Del Method O2 Flow Rate 07/19/24 15:40 Nasal Cannula 6 07/19/24 15:39 07/19/24 10:48 Nasal Cannula 11 07/19/24 09:49 Oxymask 6 07/19/24 09:36 07/19/24 08:16 Nasal Cannula 11 Laboratory Results 07/19/24 06:00 07/19/24 06:00 PG Care Time/CCT Total # of Minutes Spent Total Time Spent with Patient: Total time spent is greater than 50% in coordination of care (as documented) at patient's floor/unit and/or counseling patient: Coding Level of Care Code 76415 SUB INP/OBS CARE 3/50MIN Diagnoses Acute hypoxemic respiratory failure J96.01 Acute metabolic encephalopathy G93.41 Diabetes mellitus, type 2 E11.9 Chronic atrial fibrillation I48.20 Spermatocele of epididymis, multiple N43.42
[2024-07-20 07:42] LABS: BUN Creatinine Ratio 16.9 (10-20); Calcium 8.9 mg/dl (8.6-10.3); Creatinine Clr Calc Pharmacy 143.5 ml/min; Potassium 3.6 mmol/L (3.5-5.1)
[2024-07-20] MEDS: TORSEMIDE 20 MG TAB PO SCH (07:56)
[2024-07-20] MEDS: acetaZOLAMIDE 250 MG TAB PO SCH (07:57)
--- NOTE | 2024-07-20 10:30 | Urology Progress Note ---
Date of Service July 20, 2024 Assessment & Plan (1) Bilateral hydrocele: (2) Acute hypoxemic respiratory failure: Plan 74yo male who is s/p bilateral hydrocelectomy admitted to ICU postoperatively due to acute hypoxemic resp failure and complicated extubation due to morbid o besity and airway obstruction - Afebrile; hemodynamically stable on supplemental oxygen - Labs reviewed -WBC 9.64, hemoglobin 11.1, creatinine 0.77 - Maldonado draining appropriately with yellow urine - Maintain Maldonado catheter and [place] drains - Continue antibiotic therapy - Continue wound management - Continue medical management per hospital medicine team - appreciate assistance - Plan to discharge to nursing facility when stable from medical standpoint - Will arrange outpatient follow-up with urology next week to get catheter and drains removed ATTENDING NOTE: Agree with above. Discussed with HEMANT and Hospitalist plan for management. Continue supportive care. Able to continue with NC. PT ordered as was wound care. Continue with monitoring. Discharge planning for return to Nursing Facility. Admission and Anticipated Discharge Date Admission Date: July 16, 2024 Subjective Patient seen and examined at bedside this morning. He is awake and resting in bed. No acute issues overnight. Denies scrotal discomfort. Maldonado intact. No fever or chills. Review of Systems Constitutional: as per Subjective / HPI Genitourinary: + as per Subjective / HPI Physical Exam Constitutional: + morbidly obese; no acute distress Respiratory: no respiratory distress Supplemental O2 via NC Cardiovascular: Extremities: + edema (bilateral lower extremities) Neurologic: awake Psychiatric: Orientation: alert and oriented x 3 Genitourinary: Buried penis. Maldonado intact draining yellow urine. Exam limited due to body habitus. Mild scrotal erythema. Results & Data Vital Signs (Past 12 Hours) Vital Signs Temp Pulse Pulse Resp BP Pulse Ox O2 Del Method 07/20/24 07:45 Nasal Cannula 07/20/24 07:23 36.8 C 84 24 105/70 94 Oxymask 07/20/24 07:16 85 07/20/24 04:18 86 34 H 91 07/20/24 02:51 36.6 C 77 25 H 110/74 92 CPAP 07/20/24 00:52 84 07/19/24 23:25 BiPAP 07/19/24 22:31 36.7 C 85 18 112/71 96 Oxymask O2 Flow Rate 07/20/24 07:45 4 07/20/24 07:23 4 07/20/24 07:16 07/20/24 04:18 10 07/20/24 02:51 07/20/24 00:52 07/19/24 23:25 6 07/19/24 22:31 6 PG Care Time/CCT Total # of Minutes Spent Total Time Spent with Patient: Total time spent is greater than 50% in coordination of care (as documented) at patient's floor/unit and/or counseling patient: Coding Level of Care Code 51548 SUB INP/OBS CARE 3/50MIN Diagnoses Bilateral hydrocele N43.3 Acute hypoxemic respiratory failure J96.01
[2024-07-20] MEDS: POTASSIUM CHLORIDE CRTAB 20 MEQ TABCR PO SCH (10:44)
--- NOTE | 2024-07-20 10:55 | XCELERA ---
[id number] \\[id number]
--- NOTE | 2024-07-20 11:17 | Electrocardiogram Report ---
Test Reason : Blood Pressure : */* mmHG Vent. Rate : 89 BPM Atrial Rate : 47 BPM P-R Int : * ms QRS Dur : 84 ms QT Int : 358 ms P-R-T Axes : * 65 79 degrees QTcB Int : 435 ms Poor data quality, interpretation may be adversely affected Atrial fibrillation with premature ventricular or aberrantly conducted complexes Nonspecific ST and T wave abnormality Abnormal ECG No previous ECGs available Confirmed by Mehran Hernandez ([id number]) on 07/20/2024 11:17:21 AM Referred By: Gabriele Orona Confirmed By: Mehran Hernandez
--- NOTE | 2024-07-20 15:13 | Pulmonary Consultation ---
Date of Consultation July 20, 2024 Assessment & Plan (1) Acute hypoxemic respiratory failure: (2) Obstructive sleep apnea: (3) Chronic atrial fibrillation: (4) Pulmonary edema: (5) (HFpEF) heart failure with preserved ejection fraction: Plan 74-year-old male who was admitted to the ICU initially post hydrocelectomy Past medical history: A-fib on Xarelto, diabetes type 2, hypertension, dyslipidemia, morbid obesity, JERICA/OHS on BiPAP at home Pulmonary consulted for persistent hypoxia VBG 07/18/2024: 7.37/75/25 Chest x-ray 07/18/2024 personally reviewed: Portable film, good inspiratory effort, blunting of bilateral costophrenic angles, increase hilar markings bilaterally, increased cardiac silhouette 2D echo 07/20/2024: EF 55-60%, borderline concentric LVH -- Acute hypoxic respiratory failure Dependent atelectasis from BMI of 56 leading to VQ mismatch is a possibility BNP 108 Procalcitonin negative Nasal MRSA negative Continue with incentive spirometry, out of bed to chair O2 supplementation to keep oxygen saturation between 90-92% --JERICA/OHS On BiPAP at home, is not compliant with it at home Importance of compliance at home as well as in the hospital explained -- Metabolic alkalosis Likely a combination of contraction alkalosis as well as compensation to chronic respiratory acidosis -- A-fib On Xarelto at home Plan: In/out: -1.6 L, urine output 2700 mL, -5 L since coming to the hospital Chest x-ray from today shows worsening vascular congestion with patchy opacities bilaterally. Would recommend to continue with diuretics to keep the patient at least -1.5 L on a daily basis Incentive spirometry will be beneficial 2D echo on 07/20/2024 shows good EF, patient does have history of A-fib, diastolic dysfunction cannot be ruled out. Continue with diuretics to keep the patient negative balance Continue with incentive spirometry BiPAP nightly and as needed shortness of breath Case was discussed with primary team as well as RN at bedside Please note the above document was generated using voice recognition software. It may contain grammatical, syntax or spelling errors.Any formal questions or concerns about the content, text or information contained within the body of this dictation should be directly addressed to the provider for clarification. History of Present Illness Attending Physician: Gabriele Orona, II, DO History of Present Illness 74-year-old male who was admitted to the ICU initially post hydrocelectomy Past medical history: A-fib on Xarelto, diabetes type 2, hypertension, dyslipidemia, morbid obesity, JERICA/OHS on BiPAP at home Pulmonary consulted for persistent hypoxia Patient was downgraded from the ICU on 07/18/2024 At the time of examination patient was saturating 93-94% on 3 L. On asking him to take deep breaths his saturation went up to 96% He was not in any respiratory distress Heart rate was in the mid 80s. Overall he says that he is feeling the same when it comes to his breathing Is usually bedbound for the last 3 months since he started to have issues with his knees. Occasionally brings up phlegm which is mostly clear. 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 Allergies Allergy/AdvReac Type Severity Reaction Status Date / Time No Known Allergies Allergy Verified 06/19/24 12:32 Home Medications Medication Instructions Recorded Confirmed Type acetaminophen 325 mg tablet 325 mg PO QID PRN Pain 06/16/24 07/16/24 History (Tylenol) atorvastatin 40 mg tablet 40 mg PO HS 06/16/24 07/16/24 History cholecalciferol (vitamin D3) 50 50 mcg PO DAILY 06/16/24 07/16/24 History mcg (2,000 unit) capsule diclofenac sodium 1 % topical gel 2 g topical BID 06/16/24 07/16/24 History (Aleve (diclofenac)) furosemide 20 mg tablet (Lasix) 20 mg PO DAILY 06/16/24 07/16/24 History furosemide 40 mg tablet (Lasix) 40 mg PO DAILY 06/16/24 07/16/24 History gabapentin 100 mg capsule 100 mg PO BID 06/16/24 07/16/24 History (Neurontin) hyoscyamine sulfate 0.125 mg 0.25 mg PO Q6 PRN Nausea 06/16/24 07/16/24 History sublingual tablet loperamide 2 mg capsule 2 mg PO Q6H PRN Loose Stool 06/16/24 07/16/24 History melatonin 5 mg capsule 10 mg PO HS 06/16/24 07/16/24 History rivaroxaban 20 mg tablet (Xarelto) 20 mg PO DAILY 06/16/24 07/16/24 History sennosides 8.6 mg tablet (Senna 17.2 mg PO BID PRN Constipation 06/16/24 07/16/24 History Laxative) tirzepatide 2.5 mg/0.5 mL 2.5 mg subcut WK 06/16/24 07/16/24 History subcutaneous pen injector (Mounjaro) bisacodyl 10 mg rectal suppository 10 mg MT PM PRN Constipation 06/19/24 07/16/24 History (Dulcolax (bisacodyl)) guaifenesin 100 mg/5 mL oral liquid 300 mg PO Q6 PRN Cough 06/19/24 07/16/24 History lactulose 20 gram/30 mL oral 20 g PO QAM PRN Constipation 06/19/24 07/16/24 History solution mineral oil 118 ml MT QAM PRN Constipation 06/19/24 07/16/24 History sennosides 8.6 mg-docusate sodium 1 tab-cap PO HS 06/19/24 07/16/24 History 50 mg tablet ciprofloxacin HCl 500 mg tablet 500 mg PO Q12H #14 tabs 07/16/24 Rx (Cipro) oxycodone 5 mg tablet 5 mg PO Q6H PRN pain #6 tabs 07/16/24 Rx tamsulosin 0.4 mg capsule 0.4 mg PO HS #30 caps 07/16/24 Rx Patient History Medical History On anticoagulant therapy xarelto daily for a [facility] halfway resident BMI 50.0-59.9, adult Insomnia Bilateral hydrocele Osteoarthritis Obstructive sleep apnea Nonrheumatic mitral (valve) insufficiency Chronic atrial fibrillation on Xarelto Hyperlipemia Essential (primary) hypertension Muscle weakness (generalized) Diabetes mellitus, type 2 Surgical History Surgical history unknown Family History Other Family history unknown Social History Smoking Status: Unknown if ever smoked Preferred Language: Ivorian Communication Ability: Impaired Marker Assembler Required: No Beliefs That Will Affect Care: None Current Living Situation: Half-Way Current Living Situation Comment: resides at [place] in [place] Assistive Devices: Wheelchair Review of Systems 2 Review of Systems: All systems reviewed & are unremarkable except as noted in HPI & below Physical Exam 2 Physical Exam: Constitutional: No acute distress HEENT: EOMI, PERRLA Respiratory system: Decreased air entry bilaterally, no wheeze, no rhonchi, positive crackles bilaterally more on the left side CVS: S1-S2 positive, no murmurs or gallops Abdomen: Soft, nontender, nondistended, positive bowel sounds x4, obese Extremities: +2 pulses bilaterally radialis/ dorsalis pedis, no cyanosis, +1 pitting edema bilateral lower extremity Neuro: Awake alert oriented x3 Psych: Normal mood and affect G/U: Positive Maldonado Skin: no rashes, warm and dry Lymphatic: no cervical or axillary lymphadenopathy Results & Data Results & Data Vital Signs (Past 12 Hours) Vital Signs Temp Pulse Pulse Resp BP BP Pulse Ox 07/20/24 13:49 90 07/20/24 10:38 36.6 C 82 18 110/67 93 07/20/24 07:45 07/20/24 07:23 36.8 C 84 24 105/70 94 07/20/24 07:16 85 07/20/24 04:18 86 34 H 91 O2 Del Method O2 Flow Rate 07/20/24 13:49 07/20/24 10:38 Nasal Cannula 2 07/20/24 07:45 Nasal Cannula 4 07/20/24 07:23 Oxymask 4 07/20/24 07:16 07/20/24 04:18 10 Laboratory Results 07/19/24 06:00 07/20/24 06:05 PG Care Time/CCT Total # of Minutes Spent Total Time Spent with Patient: Total time spent is greater than 50% in coordination of care (as documented) at patient's floor/unit and/or counseling patient: Coding Level of Care Code 87927 INT INP/OBS CARE 3/75MIN Diagnoses Acute hypoxemic respiratory failure J96.01 Obstructive sleep apnea G47.33 Chronic atrial fibrillation I48.20 Pulmonary edema J81.1 (HFpEF) heart failure with preserved ejection fraction I50.30
--- NOTE | 2024-07-20 15:42 | XRay Report ---
XR chest 1V portable CLINICAL HISTORY: f/u COMPARISON STUDY: 07/18/2024 FINDINGS: There is stable cardiomegaly with increased pulmonary vascular congestion. There is increas ed reticular and patchy opacity in the lung bases. No pneumothorax. IMPRESSION: 1. CHF. 2. Increased pneumonia in the lung bases. ACT 112: Negative or not required by law. Electronically signed by: Cristopher Stanford M.D. 07/20/2024 3:41 PM
--- NOTE | 2024-07-20 19:11 | Hospitalist Progress Note ---
Date of Service July 20, 2024 Assessment & Plan (1) Acute hypoxemic respiratory failure: (2) Acute metabolic encephalopathy: (3) Diabetes mellitus, type 2: (4) Chronic atrial fibrillation: (5) Spermatocele of epididymis, multiple: Plan 74 y/o man with morbid obesity, JERICA, DM2, leg and scrotal edema who developed enormous erythematous scrotum and imaging concerning for abscess/fluid collections, there was also concern for Artemio's for which he is high risk. underwent drainage of large scrotal fluid collection, bilateral hydrocelectomy, and spermatocelectomy by Dr. Orona 07/16/24. He developed acute respiratory failure in recovery, was intubated and mechanically vented in ICU through AM of 07/17. Extubated with bipap and facemask oxygen. Became more hypercarbic after leaving ICU but mental status has improved. #Acute on likely chronic hypoxemic and hypercarbic respiratory failure - related to anesthesia and JERICA/OHS -continues with severe hypoxia to 80% when on room air. continue supp O2 -night time Bipap -futter valve / IS -mobility as much as possible -avoid opioids and sedating medications -abg/vbg if mental or respiratory status worsens, he is hypercarbic -consulted pulmonary Dr. Curry - discussed with him -RNCM called [facility] today - he is NOT on nocturnal CPAP or Bipap. He needs Bipap or AVAPS #scrotal cellulitis and massive scrotal edema - postop from drainage of large scrotal fluid collection, bilateral hydrocelectomy, and spermatocelectomy on 07/16. There was not much fluid collection per Urologist - it was mostly massive edema, edema and buried penis with urinary incontinence led to chemical irritation and cellulitis -postop care per urology -still with rena drains, burr catheter -Ceftriaxone 07/16, meropenem 07/16-, ertapenem 07/17--> ertapenem continued by Dr. Orona because of low-grade fever. history of recent ESBL Klebsiella UTI. No urine or blood cultures taken. - discussed plan of care with Dr. 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 # acute metabolic encephalopathy - related to respiratory failure, anesthesia, surgery, opioids. Per nursing staff mentation improved today. Still confused, forgetful and makes repetitive and inappropriate requests -avoid sedating medications, minimize opioids, reorientation/redirection, abg if somnolent -has improved, still forgetful NF says he is alert and oriented at baseline # massive LE edema, massive scrotal edema - chronic. unclear to me whether all lymphedema or component of heart failure. Does not carry HF diagnosis based on my review of nursing facility records and on low dose lasix despite massive leg and scrotal edema. - has had large urine output with diuresis with oral torsemide, decreased dose to 40 mg p.o. every morning with 250 mg acetazolamide every morning for alkalosis. UOP 2700. BP better today on lower dose of torsemide. - replacing hypokalemia p.o. # suspect heart failure and/or right heart failure - ordered TTE - EF 55-60%, borderline conc LVH no rwma's, normal RV function, grossly normal valves, IVC not visible, limited due to body habitus - treating for acute on (presumed) chronic HFpEF with diuresis, BP is normal, on tirzepatide as outpatient which improves outcomes in HFpEF # DM type 2 - tirzepatide held, diabetic diet, PRN short acting insulin. A1c pending # Chronic atrial fibrillation - continue xarelto, intrinsically rate controlled HTN - per history, not on meds HLD - continue statin Morbid obesity BMI 55 - tirzepatide held DVT ppx - xarelto PT/OT Resident of nursing facility, says he is going home which is impossible given his functional status Admission and Anticipated Discharge Date Admission Date: July 16, 2024 Subjective Edema improved Breathing is fine Did wear Bipap last night Wants to go to his house (not ambulatory and has been living in ) Physical Exam 2 Physical Exam: PHYSICAL EXAMINATION Last 24h vital signs reviewed, see documentation in flowsheet General: napping aroused to voice HEENT: Normocephalic, atraumatic, pupils round and equal, sclerae anicteric, no conjunctival injection, moist mucus membranes Lungs: hypoventilates, clear to auscultation bilaterally anteriorly without wheezing Heart: very distant, regular, cannot see neck veins Abdomen: Soft, nontender, nondistended. Bowel sounds present. Extremities: Warm, dry, well-perfused. 4+ lower extremity edema - improved, now with wrinkling on feet. scrotum is currently dressed Neuro: Alert and oriented x self, hospital, oriented to basic situation, forgetful, less inappropriate statements, face symmetric, moves 4 extremities Psych: less irritable and inappropriate compared to 2-3 days ago Results & Data Results & Data Vital Signs (Past 12 Hours) Vital Signs Temp Pulse Pulse Resp BP BP Pulse Ox 07/20/24 17:32 85 07/20/24 17:20 07/20/24 16:35 97.9 F 84 20 124/79 93 07/20/24 13:49 90 07/20/24 10:38 97.9 F 82 18 110/67 93 07/20/24 07:45 07/20/24 07:23 98.2 F 84 24 105/70 94 07/20/24 07:16 85 O2 Del Method O2 Flow Rate 07/20/24 17:32 07/20/24 17:20 Nasal Cannula 3 07/20/24 16:35 Nasal Cannula 3 07/20/24 13:49 07/20/24 10:38 Nasal Cannula 2 07/20/24 07:45 Nasal Cannula 4 07/20/24 07:23 Oxymask 4 07/20/24 07:16 Laboratory Results 07/19/24 06:00 07/20/24 06:05 PG Care Time/CCT Total # of Minutes Spent Total Time Spent with Patient: Total time spent is greater than 50% in coordination of care (as documented) at patient's floor/unit and/or counseling patient: Coding Level of Care Code 45866 SUB INP/OBS CARE 3/50MIN Diagnoses Acute hypoxemic respiratory failure J96.01 Acute metabolic encephalopathy G93.41 Diabetes mellitus, type 2 E11.9 Chronic atrial fibrillation I48.20 Spermatocele of epididymis, multiple N43.42
--- NOTE | 2024-07-21 07:53 | XRay Report ---
EXAM: XR chest 1V portable CLINICAL HISTORY: FOLLOW UP. TECHNIQUE: An X-ray image of the chest is obtained in AP projection. COMPARISON: 07/18/2024 X-ray. FINDINGS: Pulmonary Parenchyma: Few ill-defined opacities seen in the right lower zone. Homogeneous opacification seen in the left lower zone obscuring the CP angle. Minimal pleural reaction at the right costophrenic recess. Heart and Mediastinum: Cardiac shadow is enlarged in size. No mediastinal widening or masses. No hilar or mediastinal lymphadenopathy. Bony Thorax: Bony thorax appears intact without fractures or deformities. Soft Tissues: Soft tissues overlying the chest wall are unremarkable. IMPRESSION: 1. Few ill-defined opacities right lower zone and opacification of left lower zone causing the blunting of costophrenic recess. Pulmonary edema versus infectious process. suggest clinical and lab correlation. 2. Mild to moderate left pleural effusion effusion. 3. Cardiomegaly. 4. Comparing with previous x-ray dated 07/18/2024 there is marginal interval progression in the left lower zone opacification and blunting of CP angle. Electronically signed by Quinn Desouza 07-21-2024 07:52 AM
--- NOTE | 2024-07-21 08:33 | Pulmonology Progress Note ---
Date of Service July 21, 2024 Assessment & Plan (1) Acute hypoxemic respiratory failure: (2) Obstructive sleep apnea: (3) Chronic atrial fibrillation: (4) Pulmonary edema: (5) (HFpEF) heart failure with preserved ejection fraction: Plan 74-year-old male who was admitted to the ICU initially post hydrocelectomy Past medical history: A-fib on Xarelto, diabetes type 2, hypertension, dyslipidemia, morbid obesity, JERICA/OHS on BiPAP at home Pulmonary consulted for persistent hypoxia VBG 07/18/2024: 7.37/75/ Chest x-ray 07/18/2024 personally reviewed: Portable film, good inspiratory effort, blunting of bilateral costophrenic angles, increase hilar markings bilaterally, increased cardiac silhouette 2D echo 07/20/2024: EF 55-60%, borderline concentric LVH -- Acute hypoxic respiratory failure Dependent atelectasis from BMI of 56 leading to VQ mismatch is a possibility BNP 108 Procalcitonin negative Nasal MRSA negative Continue with incentive spirometry, out of bed to chair O2 supplementation to keep oxygen saturation between 90-92% --JERICA/OHS On BiPAP at home, is not compliant with it at home Importance of compliance at home as well as in the hospital explained -- Metabolic alkalosis Likely a combination of contraction alkalosis as well as compensation to chronic respiratory acidosis -- A-fib On Xarelto at home Admission and Anticipated Discharge Date Admission Date: July 16, 2024 Supervising Physician Co-Signing Physician Notes I saw and evaluated the patient with Ashvin Gonzalez PA-C, and agree with findings and plan as documented in the note. 2D echo on 07/20/2024: Good EF, patient does have history of A-fib, diastolic dysfunction cannot be ruled out. Patient seen and examined at bedside. No acute distress, no adverse events overnight He was saturating 93% on 4 L, went down to 3 L He was in good mood. Denied any nausea vomiting Unfortunately used BiPAP only for couple of hours overnight. Fair appetite. Was asking when he could go home. Constitutional: No acute distress HEENT: EOMI, PERRLA, hard to hear Respiratory system: Decreased air entry bilaterally, no wheeze, no rhonchi, positive crackles bilaterally more on the left side CVS: S1-S2 positive, no murmurs or gallops Abdomen: Soft, nontender, nondistended, positive bowel sounds x4, obese Extremities: +2 pulses bilaterally radialis/ dorsalis pedis, no cyanosis, +1 pitting edema bilateral lower extremity Neuro: Awake alert oriented x3 Psych: Normal mood and affect G/U: Positive Maldonado Plan: In/out: - 3.4 L, urine output 3676 mL, - 8.5 L total since coming to the hospital Chest x-ray from today does not show any significant change compared to yesterday. Patchy opacities bilaterally would likely present pulmonary edema and increased cardiac silhouette persist. Would recommend to continue with diuretics to keep the patient at least - 1-1.5 L on a daily basis Incentive spirometry will be beneficial Encourage out of bed to chair as tolerated. BiPAP nightly and as needed shortness of breath Case was discussed with RN at bedside Please note the above document was generated using voice recognition software. It may contain grammatical, syntax or spelling errors.Any formal questions or concerns about the content, text or information contained within the body of this dictation should be directly addressed to the provider for clarification. Subjective Patient seen and evaluated at bedside. He apparently was confused overnight per nursing staff. Is awake and alert this morning. Is saturating well on 4 L nasal cannula at this time. Offers no complaints. Has not been out of bed at this time. Did not tolerate BiPAP well overnight. Review of Systems 2 Review of Systems: As per subjective. Physical Exam 2 Physical Exam: VITAL SIGNS Vital signs and nursing notes were reviewed. GENERAL 74-year-old male appearing his stated age who is in no acute distress. Communicates well with provider and answers questions appropriately. NOSE Midline and without cyanosis. MOUTH/OROPHARYNX Without perioral cyanosis. LUNGS Chest wall evaluation demonstrates normal chest wall A:P diameter. Auscultation reveals diminished breath sounds with crackles at the bases. CARDIAC RRR with S1/S2. No murmur, rubs, or gallops appreciated. EXTREMITIES Nail clubbing not present. No peripheral cyanosis. Moderate pretibial edema present. +3/5 radial palpated throughout. PSYCH A&Ox3 and cooperates fully with examiner. Pt is very pleasant and interacts well with examiner. Skin: no rashes, warm and dry Lymphatic: no cervical or axillary lymphadenopathy Results & Data Results & Data Vital Signs (Past 12 Hours) Vital Signs Temp Pulse Pulse Resp BP Pulse Ox Pulse Ox 07/21/24 07:32 36.6 C 94 H 20 118/74 97 07/21/24 03:54 19 95 07/21/24 03:15 36.5 C 97 H 20 107/68 90 07/20/24 22:31 36.9 C 98 H 18 123/76 95 07/20/24 22:31 95 07/20/24 22:20 87 29 H 93 07/20/24 21:56 82 O2 Del Method O2 Del Method O2 Flow Rate 07/21/24 07:32 Oxymask 8 07/21/24 03:54 Nasal Cannula 4 07/21/24 03:15 Nasal Cannula 3 07/20/24 22:31 BiPAP 07/20/24 22:31 BiPAP 07/20/24 22:20 3 07/20/24 21:56 Laboratory Results 07/19/24 06:00 07/21/24 09:57 PG Care Time/CCT Total # of Minutes Spent Total Time Spent with Patient: Total time spent is greater than 50% in coordination of care (as documented) at patient's floor/unit and/or counseling patient: Coding Level of Care Code 57622 SUB INP/OBS CARE 2/35MIN Diagnoses Acute hypoxemic respiratory failure J96.01 Obstructive sleep apnea G47.33 Chronic atrial fibrillation I48.20 Pulmonary edema J81.1 (HFpEF) heart failure with preserved ejection fraction I50.30
[2024-07-21] MEDS: SENNA 8.6 MG TAB PO SCH (09:58)
[2024-07-21 10:47] LABS: BUN Creatinine Ratio 19.7 (10-20); Calcium 9.3 mg/dl (8.6-10.3); Creatinine Clr Calc Pharmacy 167.6 ml/min; Potassium 3.8 mmol/L (3.5-5.1)
[2024-07-21 11:03] LABS: Thyroid Stimulating Hormone 2.707 uIu/ml (0.300-4.500)
--- NOTE | 2024-07-21 11:52 | Urology Progress Note ---
Date of Service July 21, 2024 Assessment & Plan (1) Bilateral hydrocele: (2) Acute hypoxemic respiratory failure: Plan 74yo male who is s/p bilateral hydrocelectomy admitted to ICU postoperatively due to acute hypoxemic respiratory failure and complicated extubation due to m orbid obesity and airway obstruction - Afebrile; hemodynamically stable on supplemental oxygen - Labs reviewed -creatinine 0.66, WBC 9.64 on 07/19 - Maldonado draining appropriately with yellow urine - Maintain Maldonado catheter and [place] drains - Continue antibiotic therapy - Continue PT/OT and wound management - Continue medical management per hospital medicine team - appreciate assistance - Plan to discharge to nursing facility when stable from medical standpoint - Will arrange outpatient follow-up with urology next week to get catheter and drains removed Admission and Anticipated Discharge Date Admission Date: July 16, 2024 Subjective Patient seen and examined at bedside. No acute issues overnight. Denies scrotal discomfort. Tolerating Maldonado catheter. Maldonado draining yellow urine. No fever or chills. Review of Systems Constitutional: as per Subjective / HPI Genitourinary: + as per Subjective / HPI Physical Exam Constitutional: + morbidly obese; no acute distress Respiratory: no respiratory distress Supplemental O2 via NC Cardiovascular: Extremities: + edema (bilateral lower extremities) Neurologic: awake Psychiatric: Orientation: alert and oriented x 3 Genitourinary: Buried penis. Maldonado intact draining yellow urine. Exam limited due to body habitus. Moderate scrotal edema, mild erythema. Results & Data Vital Signs (Past 12 Hours) Vital Signs Temp Pulse Resp BP Pulse Ox O2 Del Method O2 Flow Rate 07/21/24 11:11 36.7 C 86 20 137/78 95 Nasal Cannula 4 07/21/24 07:32 36.6 C 94 H 20 118/74 97 Oxymask 8 07/21/24 03:54 19 95 Nasal Cannula 4 07/21/24 03:15 36.5 C 97 H 20 107/68 90 Nasal Cannula 3 PG Care Time/CCT Total # of Minutes Spent Total Time Spent with Patient: Total time spent is greater than 50% in coordination of care (as documented) at patient's floor/unit and/or counseling patient: Coding Level of Care Code None Diagnoses Bilateral hydrocele N43.3 Acute hypoxemic respiratory failure J96.01
--- NOTE | 2024-07-21 14:05 | Hospitalist Progress Note ---
Date of Service July 21, 2024 Assessment & Plan (1) Acute hypoxemic respiratory failure: Plan: 74yo male with morbid obesity, JERICA, DM2, leg and scrotal edema who developed erythematous scrotum and imaging concerning for abscess/fluid collections, there was also concern for Artemio's for which he is high risk. patient was extubated following his b/l Hydrocelectomy, drainage of scrotal fluid collection, and Bilateral spermatocelectomy by Dr Orona however, while in PACU, he developed post-op pulmonary insufficiency and was re- intubated and admitted to the ICU extubated successfully on 07/17/24 cause(s) of acute hypoxic resp failure - ?pneumonia (RLL/LLL), decompensated CHF, JERICA/OHS, atelectasis cont BIPAP at HS and NC O2 during the day cont IV abx (Ceftriaxone 07/16, meropenem 07/16-, and ertapenem since 07/17) cont diuresis of note - patient is not on CPAP or BIPAP at the SNF in [place] (2) Acute metabolic encephalopathy: Plan: infection, hospital psychosis, hypercapnia, etc all likely to blame treat ?pneumonia treat hypercapnia with BIPAP HS etc (3) Diabetes mellitus, type 2: Plan: check a1c in am glucose levels all <150 while here (4) Chronic atrial fibrillation: Plan: cont Xarelto rates are controlled without AV bryanna agents (5) Spermatocele of epididymis, multiple: Plan: s/p b/l Hydrocelectomy, drainage of scrotal fluid collection, and Bilateral spermatocelectomy by Dr Orona on 07/16/24 defer Rx and management to urology remains on IV ertapenem daily unfortunately he has had no cultures taken during his hospitalization does have prior h/o ESBL Klebsiella UTI (06/23/24 - see scanned lab results from [facility] per urology - only urology should remove burr; 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 and thus will defer all burr management to urology team (6) Acute on chronic heart failure with preserved ejection fraction (HFpEF): Plan: cont diuresis currently on torsemide 40mg qam + diamox 250mg daily will give additional torsemide 20mg x 1 at 1700 today BMP am (7) Obstructive sleep apnea: Plan: BIPAP HS (8) Morbid obesity with BMI of 50.0-59.9, adult: Plan: BMI 56 TSH today wnl Plan cont PT/OT as able dispo - SNF in [place] Admission and Anticipated Discharge Date Admission Date: July 16, 2024 Subjective patient confused during the visit, talking about "people coming over for dinner" when he was told he was in the hospital he finally realized he was confused denied any complaints of dyspnea scrotal pain improved denied pain in any other location Review of Systems Review of Systems: cv - no chest pain pulm - no cough GI - no abd pain or N/V Physical Exam Physical Exam: gen - morbidly obese, confused, NAD neck - probable JVD mouth - MMM heart - irregularly irregular, s1 s2, no obvious murmur lungs - decreased BS bases abd - soft NT ND BS+ ext - pulses b/l feet 2+ psych - confused Results & Data Results & Data Vital Signs (Past 12 Hours) Vital Signs Temp Pulse Resp BP Pulse Ox O2 Del Method O2 Flow Rate 07/21/24 11:11 36.7 C 86 20 137/78 95 Nasal Cannula 4 07/21/24 07:32 36.6 C 94 H 20 118/74 97 Oxymask 8 07/21/24 03:54 19 95 Nasal Cannula 4 07/21/24 03:15 36.5 C 97 H 20 107/68 90 Nasal Cannula 3 Laboratory Results Laboratory Results - last 24 hr 07/21/24 07/21/24 07/21/24 08:07 09:57 12:14 Sodium 141 Potassium 3.8 Chloride 101 Carbon Dioxide 37 H Anion Gap 3 BUN 13 Creatinine 0.66 Est Cr Clr Drug Dosing 167.6 eGFR 99.04 BUN/Creatinine Ratio 19.7 Glucose 131 H POC Glucose 107 H 125 H Calcium 9.3 Magnesium 2.0 TSH 2.707 07/21/24 16:50 Sodium Potassium Chloride Carbon Dioxide Anion Gap BUN Creatinine Est Cr Clr Drug Dosing eGFR BUN/Creatinine Ratio Glucose POC Glucose 100 H Calcium Magnesium TSH PG Care Time/CCT Total # of Minutes Spent Total Time Spent with Patient: Total time spent is greater than 50% in coordination of care (as documented) at patient's floor/unit and/or counseling patient: Coding Level of Care Code 97790 SUB INP/OBS CARE 2/35MIN Diagnoses Acute hypoxemic respiratory failure J96.01 Acute metabolic encephalopathy G93.41 Diabetes mellitus, type 2 E11.9 Chronic atrial fibrillation I48.20 Spermatocele of epididymis, multiple N43.42 Acute on chronic heart failure with preserved ejection fraction (HFpEF) I50.33 Obstructive sleep apnea G47.33 Morbid obesity with BMI of 50.0-59.9, adult E66.01; Z68.43
[2024-07-21] MEDS: TORSEMIDE 20 MG TAB PO ONE (16:42)
[2024-07-22] MEDS: ACETAMINOPHEN 325 MG TAB PO PRN (04:35)
[2024-07-22 07:17] LABS: Base Excess VBG 10.5 mEq/L; HCO3 VBG 38 mmol/L; Oxygen Saturation VBG < 60.0 %; PCO2 VBG 68 mmHg (38-50); PO2 VBG 37 mmHg; pH VBG 7.36 (7.36-7.41)
[2024-07-22 07:43] LABS: BUN Creatinine Ratio 23.3 (10-20); Calcium 9.3 mg/dl (8.6-10.3); Creatinine Clr Calc Pharmacy 126.3 ml/min
--- NOTE | 2024-07-22 08:03 | XRay Report ---
EXAM: XR chest 1V portable CLINICAL HISTORY: F/U KAB SJB TECHNIQUE: An X-ray image of the chest is obtained in 1 AP projection. COMPARISON: Porior study dated 07/21/2024 FINDINGS: Pulmonary Parenchyma: Few ill-defined opacities seen in the right lower zone. Homogeneous opacification seen in the left lower zone obscuring the CP angle. Background of bilateral diffuse ground glass veiling seen Blunting of both costophrenic angles, possibly due to pleural effusion. Heart and Mediastinum: Cardiac shadow is enlarged in size. No mediastinal widening or masses. No hilar or mediastinal lymphadenopathy. Bony Thorax: Bony thorax appears intact without fractures or deformities. Soft Tissues: Soft tissues overlying the chest wall are unremarkable. IMPRESSION: 1. Few ill-defined opacities seen in the right lower zone. 2. Homogeneous opacification seen in the left lower zone obscuring the CP angle. 3. Background of bilateral diffuse ground glass veiling seen 4. Blunting of both costophrenic angles, possibly due to pleural effusion. 5. Cardiomegaly. 6. No interval changes. Electronically signed by Quinn Desouza 07-22-2024 08:02 AM
--- NOTE | 2024-07-22 08:32 | Pulmonology Progress Note ---
Date of Service July 22, 2024 Assessment & Plan (1) Acute hypoxemic respiratory failure: (2) Obstructive sleep apnea: (3) Chronic atrial fibrillation: (4) Pulmonary edema: (5) (HFpEF) heart failure with preserved ejection fraction: Plan 74-year-old male who was admitted to the ICU initially post hydrocelectomy Past medical history: A-fib on Xarelto, diabetes type 2, hypertension, dyslipidemia, morbid obesity, JERICA/OHS on BiPAP at home Pulmonary consulted for persistent hypoxia VBG 07/18/2024: 7.37/75/ Chest x-ray 07/18/2024 personally reviewed: Portable film, good inspiratory effort, blunting of bilateral costophrenic angles, increase hilar markings bilaterally, increased cardiac silhouette 2D echo 07/20/2024: EF 55-60%, borderline concentric LVH -- Acute hypoxic respiratory failure Dependent atelectasis from BMI of 56 leading to VQ mismatch is a possibility Encourage incentive spirometry and out of bed to chair is much as possible. BNP 108 Procalcitonin negative Nasal MRSA negative Continue with incentive spirometry, out of bed to chair O2 supplementation to keep oxygen saturation between 90-92% --JERICA/OHS On BiPAP at home, is not compliant with it at home Importance of compliance at home as well as in the hospital explained -- Metabolic alkalosis Likely a combination of contraction alkalosis as well as compensation to chronic respiratory acidosis -- A-fib On Xarelto at home Admission and Anticipated Discharge Date Admission Date: July 16, 2024 Supervising Physician Co-Signing Physician Notes I saw and evaluated the patient with Ashvin Gonzalez PA-C, and agree with findings and plan as documented in the note. 2D echo on 07/20/2024: Good EF, patient does have history of A-fib, diastolic dysfunction cannot be ruled out. Patient seen and examined at bedside. No acute distress, no adverse events overnight He was saturating 93% on 4 L, went down to 3 L He was in good mood. Denied any nausea vomiting Unfortunately used BiPAP only for couple of hours overnight. Fair appetite. Was asking when he could go home. Constitutional: No acute distress HEENT: EOMI, PERRLA, hard to hear Respiratory system: Decreased air entry bilaterally, no wheeze, no rhonchi, positive crackles bilaterally more on the left side CVS: S1-S2 positive, no murmurs or gallops Abdomen: Soft, nontender, nondistended, positive bowel sounds x4, obese Extremities: +2 pulses bilaterally radialis/ dorsalis pedis, no cyanosis, +1 pitting edema bilateral lower extremity Neuro: Awake alert oriented x3 Psych: Normal mood and affect G/U: Positive Maldonado Plan: In/out: -385 mL, urine output 1700 mL, - 8.9 L total since coming to the hospital Chest x-ray from today shows improvement in patient's alveolar opacities. He is responding well to diuresis Recommend to continue with diuretics to keep the patient at least - 1-1.5 L on a daily basis Would continue to encourage out of bed to chair as tolerated. Goal saturation 90 to 94%. Titrate down supplemental oxygen as tolerated. BiPAP nightly and as needed shortness of breath Case was discussed with RN at bedside and primary team No further recommendation from pulmonary perspective, will sign off Please call directly with any questions Please note the above document was generated using voice recognition software. It may contain grammatical, syntax or spelling errors.Any formal questions or concerns about the content, text or information contained within the body of this dictation should be directly addressed to the provider for clarification. Subjective Patient seen and evaluated at bedside. Tolerated BiPAP better overnight. Sitting at the edge of the bed this morning. Participated in IS. Review of Systems 2 Review of Systems: As per subjective. Physical Exam 2 Physical Exam: VITAL SIGNS Vital signs and nursing notes were reviewed. GENERAL 74-year-old male appearing his stated age who is in no acute distress. Communicates well with provider and answers questions appropriately. NOSE Midline and without cyanosis. MOUTH/OROPHARYNX Without perioral cyanosis. LUNGS Chest wall evaluation demonstrates normal chest wall A:P diameter. Auscultation reveals diminished breath sounds with crackles at the bases. CARDIAC RRR with S1/S2. No murmur, rubs, or gallops appreciated. EXTREMITIES Nail clubbing not present. No peripheral cyanosis. Moderate pretibial edema present. +3/5 radial palpated throughout. PSYCH A&Ox3 and cooperates fully with examiner. Pt is very pleasant and interacts well with examiner. Skin: no rashes, warm and dry Lymphatic: no cervical or axillary lymphadenopathy Results & Data Results & Data Vital Signs (Past 12 Hours) Vital Signs Temp Pulse Pulse Resp BP Pulse Ox O2 Del Method 07/22/24 07:25 36.6 C 82 16 125/79 94 Room Air, Nasal Cannula 07/22/24 03:49 36.8 C 85 22 123/73 93 CPAP 07/22/24 02:16 91 H 35 H 93 07/21/24 23:19 36.8 C 88 22 120/71 96 CPAP 07/21/24 22:50 92 H 28 H 90 07/21/24 21:46 88 07/21/24 20:46 82 28 H 92 O2 Flow Rate 07/22/24 07:25 4 07/22/24 03:49 07/22/24 02:16 6 07/21/24 23:19 07/21/24 22:50 6 07/21/24 21:46 07/21/24 20:46 3 Laboratory Results 07/19/24 06:00 07/22/24 07:04 PG Care Time/CCT Total # of Minutes Spent Total Time Spent with Patient: Total time spent is greater than 50% in coordination of care (as documented) at patient's floor/unit and/or counseling patient: Coding Level of Care Code 63829 SUB INP/OBS CARE 2/35MIN Diagnoses Acute hypoxemic respiratory failure J96.01 Obstructive sleep apnea G47.33 Chronic atrial fibrillation I48.20 Pulmonary edema J81.1 (HFpEF) heart failure with preserved ejection fraction I50.30
[2024-07-22 09:20] LABS: Estimated Average Glucose 123 mg/dl; Hemoglobin A1C 5.9 % (4.5-5.6)
--- NOTE | 2024-07-22 11:34 | Urology Progress Note ---
Date of Service July 22, 2024 Assessment & Plan (1) Bilateral hydrocele: (2) Acute hypoxemic respiratory failure: Plan 74yo male who is s/p bilateral hydrocelectomy admitted to ICU postoperatively due to acute hypoxemic respiratory failure and complicated extubation due to m orbid obesity and airway obstruction - Afebrile; hemodynamically stable on supplemental oxygen - Labs reviewed -creatinine 0.86 - Maldonado draining appropriately with yellow urine - Maintain Maldonado catheter and [place] drains - Continue antibiotic therapy at this time - Continue PT/OT and wound management - Continue medical management per hospital medicine team, pulmonary - appreciate assistance - Plan to discharge to nursing facility when stable from medical standpoint - Keep outpatient urology follow-up next week for wound check and drain removal Admission and Anticipated Discharge Date Admission Date: July 16, 2024 Subjective Patient seen and examined at bedside this morning. He is resting in bed, arouses to his name. Denies issues overnight. Denies scrotal or other pain. Maldonado intact. No fever or chills. Review of Systems Constitutional: as per Subjective / HPI Genitourinary: + as per Subjective / HPI Physical Exam Constitutional: + morbidly obese; no acute distress Respiratory: no respiratory distress Supplemental O2 via NC Cardiovascular: Extremities: + edema (bilateral lower extremities) Neurologic: awake Psychiatric: Orientation: alert and oriented x 3 Genitourinary: Buried penis. Maldonado intact draining yellow urine. Exam limited due to body habitus. Moderate scrotal edema, mild erythema. Results & Data Vital Signs (Past 12 Hours) Vital Signs Temp Pulse Pulse Resp BP Pulse Ox O2 Del Method 07/22/24 07:25 36.6 C 82 16 125/79 94 Room Air, Nasal Cannula 07/22/24 03:49 36.8 C 85 22 123/73 93 CPAP 07/22/24 02:16 91 H 35 H 93 O2 Flow Rate 07/22/24 07:25 4 07/22/24 03:49 07/22/24 02:16 6 PG Care Time/CCT Total # of Minutes Spent Total Time Spent with Patient: Total time spent is greater than 50% in coordination of care (as documented) at patient's floor/unit and/or counseling patient: Coding Level of Care Code None Diagnoses Bilateral hydrocele N43.3 Acute hypoxemic respiratory failure J96.01
--- NOTE | 2024-07-22 14:53 | Hospitalist Progress Note ---
Date of Service July 22, 2024 Assessment & Plan (1) Acute hypoxemic respiratory failure: Plan: 74yo male with morbid obesity, JERICA, DM2, leg and scrotal edema who developed erythematous scrotum and imaging concerning for abscess/fluid collections, there was also concern for Artemio's for which he is high risk. patient was extubated following his b/l Hydrocelectomy, drainage of scrotal fluid collection, and Bilateral spermatocelectomy by Dr Orona however, while in PACU, he developed post-op pulmonary insufficiency and was re- intubated and admitted to the ICU extubated successfully on 07/17/24 cause(s) of acute hypoxic resp failure - ?pneumonia (RLL/LLL), decompensated CHF, JERICA/OHS, atelectasis cont BIPAP at HS and NC O2 during the day cont IV abx (Ceftriaxone 07/16, meropenem , and ertapenem since 07/17) cont diuresis of note - patient is not on CPAP or BIPAP at the SNF in [place] but should be on such upon discharge to SNF (2) Acute metabolic encephalopathy: Plan: infection, hospital psychosis, hypercapnia, etc all likely to blame treat ?pneumonia treat hypercapnia with BIPAP HS (VBG today compensated) etc (3) Diabetes mellitus, type 2: Plan: a1c c/w pre-DM only (5.9%) glucose levels all <150 while here (4) Chronic atrial fibrillation: Plan: cont Xarelto rates are controlled without AV bryanna agents (5) Spermatocele of epididymis, multiple: Plan: s/p b/l Hydrocelectomy, drainage of scrotal fluid collection, and Bilateral spermatocelectomy by Dr Orona on 07/16/24 defer Rx and management to urology remains on IV ertapenem daily unfortunately he has had no cultures taken during his hospitalization does have prior h/o ESBL Klebsiella UTI (06/23/24 - see scanned lab results from [facility]) per urology - only urology should remove burr; 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 and thus will defer all burr management to urology team (6) Acute on chronic heart failure with preserved ejection fraction (HFpEF): Plan: cont diuresis currently on torsemide 40mg qam + diamox 250mg daily gave additional lasix 40mg IV x 1 this afternoon BMP am reeval tomorrow (7) Obstructive sleep apnea: Plan: BIPAP HS (8) Morbid obesity with BMI of 50.0-59.9, adult: Plan: BMI 56 TSH today wnl Plan cont PT/OT as able dispo - SNF in [place] timing of transfer back uncertain Admission and Anticipated Discharge Date Admission Date: July 16, 2024 Subjective patient was napping with BIPAP in place during my visit did wake 1x while I was examining him per staff is requiring varying amounts of NC O2 while awake continues to diurese eating nearly 100% of meals Physical Exam Physical Exam: gen - morbidly obese, NAD, sleeping with BIPAP in place heart - irregularly irregular, s1 s2, no obvious murmur lungs - decreased BS bases, no obvious rales, no wheeze, good airation abd - soft NT ND BS+ ext - pulses b/l feet 2+, <1+ edema b/l feet Results & Data Results & Data Vital Signs (Past 12 Hours) Vital Signs Temp Pulse Pulse Resp BP BP Pulse Ox 07/22/24 14:16 36.5 C 77 24 110/69 90 07/22/24 11:49 36.5 C 77 24 122/79 93 07/22/24 07:25 36.6 C 82 16 125/79 94 07/22/24 03:49 36.8 C 85 22 123/73 93 O2 Del Method O2 Flow Rate 07/22/24 14:16 Nasal Cannula 4 07/22/24 11:49 Nasal Cannula 3 07/22/24 07:25 Room Air, Nasal Cannula 4 07/22/24 03:49 CPAP Laboratory Results Laboratory Results - last 24 hr 07/22/24 07:04 VBG pH 7.36 VBG pCO2 68 H VBG pO2 37 VBG HCO3 38 VBG O2 Saturation < 60.0 VBG Base Excess 10.5 Sodium 142 Potassium 4.0 Chloride 102 Carbon Dioxide 36 H Anion Gap 4 BUN 20 Creatinine 0.86 Est Cr Clr Drug Dosing 126.3 eGFR 91.43 BUN/Creatinine Ratio 23.3 H Glucose 103 H Estimat Average Glucose 123 Hemoglobin A1c 5.9 H Calcium 9.3 Vitamin B12 389 Diagnostic Findings Chest X-Ray 07/22/24 07:00 EXAM: XR chest 1V portable CLINICAL HISTORY: F/U KAB SJB TECHNIQUE: An X-ray image of the chest is obtained in 1 AP projection. COMPARISON: Porior study dated 07/21/2024 FINDINGS: Pulmonary Parenchyma: Few ill-defined opacities seen in the right lower zone. Homogeneous opacification seen in the left lower zone obscuring the CP angle. Background of bilateral diffuse ground glass veiling seen Blunting of both costophrenic angles, possibly due to pleural effusion. Heart and Mediastinum: Cardiac shadow is enlarged in size. No mediastinal widening or masses. No hilar or mediastinal lymphadenopathy. Bony Thorax: Bony thorax appears intact without fractures or deformities. Soft Tissues: Soft tissues overlying the chest wall are unremarkable. IMPRESSION: 1. Few ill-defined opacities seen in the right lower zone. 2. Homogeneous opacification seen in the left lower zone obscuring the CP angle. 3. Background of bilateral diffuse ground glass veiling seen 4. Blunting of both costophrenic angles, possibly due to pleural effusion. 5. Cardiomegaly. 6. No interval changes. Electronically signed by Quinn Desouza 07-22-2024 08:02 AM PG Care Time/CCT Total # of Minutes Spent Total Time Spent with Patient: Total time spent is greater than 50% in coordination of care (as documented) at patient's floor/unit and/or counseling patient: Coding Level of Care Code 89677 SUB INP/OBS CARE 2/35MIN Diagnoses Acute hypoxemic respiratory failure J96.01 Acute metabolic encephalopathy G93.41 Diabetes mellitus, type 2 E11.9 Chronic atrial fibrillation I48.20 Spermatocele of epididymis, multiple N43.42 Acute on chronic heart failure with preserved ejection fraction (HFpEF) I50.33 Obstructive sleep apnea G47.33 Morbid obesity with BMI of 50.0-59.9, adult E66.01; Z68.43
[2024-07-22] MEDS: FUROSEMIDE 40 MG/4 ML VIAL IV ONE (15:16)
[2024-07-22] MEDS: COUGH DROP (SUGAR FREE) LOZ 24 LOZ/1 BOX BUCCAL PRN (20:27)
[2024-07-22] MEDS: KETOROLAC TROMETHAMINE 15 MG/ML VIAL IV ONE (20:36)
[2024-07-23 06:25] LABS: BUN Creatinine Ratio 29.6 (10-20); Calcium 9.6 mg/dl (8.6-10.3); Creatinine Clr Calc Pharmacy 134.2 ml/min; Potassium 3.9 mmol/L (3.5-5.1)
--- NOTE | 2024-07-23 08:11 | Pulmonology Progress Note ---
Date of Service July 23, 2024 Assessment & Plan (1) Acute hypoxemic respiratory failure: (2) Obstructive sleep apnea: (3) Chronic atrial fibrillation: (4) Pulmonary edema: (5) (HFpEF) heart failure with preserved ejection fraction: Plan 74-year-old male who was admitted to the ICU initially post hydrocelectomy Past medical history: A-fib on Xarelto, diabetes type 2, hypertension, dyslipidemia, morbid obesity, JERICA/OHS on BiPAP at home Pulmonary consulted for persistent hypoxia VBG 07/18/2024: 7.37// Chest x-ray 07/18/2024 personally reviewed: Portable film, good inspiratory effort, blunting of bilateral costophrenic angles, increase hilar markings bilaterally, increased cardiac silhouette 2D echo 07/20/2024: EF 55-60%, borderline concentric LVH -- Acute hypoxic respiratory failure Dependent atelectasis from BMI of 56 leading to VQ mismatch is a possibility Encourage incentive spirometry and out of bed to chair is much as possible. BNP 108 Procalcitonin negative Nasal MRSA negative Continue with incentive spirometry, out of bed to chair O2 supplementation to keep oxygen saturation between 90-92% --JERICA/OHS On BiPAP at home, is not compliant with it at home Importance of compliance at home as well as in the hospital explained -- Metabolic alkalosis Likely a combination of contraction alkalosis as well as compensation to chronic respiratory acidosis -- A-fib On Xarelto at home Admission and Anticipated Discharge Date Admission Date: July 16, 2024 Supervising Physician Co-Signing Physician Notes I saw and evaluated the patient with Ashvin Gonzalez PA-C, and agree with findings and plan as documented in the note. 2D echo on 07/20/2024: Good EF, patient does have history of A-fib, diastolic dysfunction cannot be ruled out. Patient seen and examined at bedside. No acute distress, notable symptoms overnight he was saturating 99% on 5 L, I went down to 3 L. Overall he said he is feeling better. Did use BiPAP overnight Denies any nausea or vomiting Again asking if he could go home No headache or blurry vision Fair appetite Constitutional: No acute distress HEENT: EOMI, PERRLA, hard to hear Respiratory system: Decreased air entry bilaterally, no wheeze, no rhonchi, no crackles CVS: S1-S2 positive, no murmurs or gallops Abdomen: Soft, nontender, nondistended, positive bowel sounds x4, obese Extremities: +2 pulses bilaterally radialis/ dorsalis pedis, no cyanosis, +1 pitting edema bilateral lower extremity Neuro: Awake alert oriented x3 Psych: Normal mood and affect G/U: Positive Maldonado Plan: In/out: -1.6 L, urine output 2600, -10 L total since coming to the hospital Would continue to encourage out of bed to chair as tolerated. Goal saturation 90 to 92%. Titrate down supplemental oxygen as tolerated. BiPAP nightly and as needed shortness of breath Case was discussed with RN at bedside and primary team No further recommendation from pulmonary perspective, will sign off Please call directly with any questions Please note the above document was generated using voice recognition software. It may contain grammatical, syntax or spelling errors.Any formal questions or concerns about the content, text or information contained within the body of this dictation should be directly addressed to the provider for clarification. Subjective Patient seen and evaluated at bedside. He is resting comfortably and not in respiratory distress. He continues to utilize his incentive spirometer. Anxious to get out of the hospital. Review of Systems 2 Review of Systems: As per subjective. Physical Exam 2 Physical Exam: VITAL SIGNS Vital signs and nursing notes were reviewed. GENERAL 74-year-old male appearing his stated age who is in no acute distress. Communicates well with provider and answers questions appropriately. NOSE Midline and without cyanosis. MOUTH/OROPHARYNX Without perioral cyanosis. LUNGS Chest wall evaluation demonstrates normal chest wall A:P diameter. Auscultation reveals diminished breath sounds with crackles at the bases. CARDIAC RRR with S1/S2. No murmur, rubs, or gallops appreciated. EXTREMITIES Nail clubbing not present. No peripheral cyanosis. Moderate pretibial edema present. +3/5 radial palpated throughout. PSYCH A&Ox3 and cooperates fully with examiner. Pt is very pleasant and interacts well with examiner. Skin: no rashes, warm and dry Lymphatic: no cervical or axillary lymphadenopathy Results & Data Results & Data Vital Signs (Past 12 Hours) Vital Signs Temp Pulse Pulse Pulse Resp BP BP 07/23/24 08:02 94 H 07/23/24 07:28 36.6 C 118 H 24 131/75 07/23/24 06:00 36.5 C 80 20 122/76 07/23/24 05:02 36.5 C 80 22 122/76 07/23/24 04:40 36.8 C 93 H 20 127/76 07/22/24 23:49 36.5 C 95 H 20 146/81 H 07/22/24 22:57 88 34 H 07/22/24 22:51 07/22/24 21:45 83 Pulse Ox O2 Del Method O2 Flow Rate 07/23/24 08:02 07/23/24 07:28 95 Nasal Cannula 6 07/23/24 06:00 93 Nasal Cannula 6 07/23/24 05:02 91 Nasal Cannula 6 07/23/24 04:40 91 Nasal Cannula 6 07/22/24 23:49 92 Room Air, CPAP 07/22/24 22:57 90 7 07/22/24 22:51 Nasal Cannula 4 07/22/24 21:45 Laboratory Results 07/19/24 06:00 07/23/24 05:30 PG Care Time/CCT Total # of Minutes Spent Total Time Spent with Patient: Total time spent is greater than 50% in coordination of care (as documented) at patient's floor/unit and/or counseling patient: Coding Level of Care Code 17511 SUB INP/OBS CARE 2/35MIN Diagnoses Acute hypoxemic respiratory failure J96.01 Obstructive sleep apnea G47.33 Chronic atrial fibrillation I48.20 Pulmonary edema J81.1 (HFpEF) heart failure with preserved ejection fraction I50.30
[2024-07-23] MEDS: BUMETANIDE 1 MG in SYRINGE 0 ML IV ONE (09:58)
[2024-07-23] MEDS: HYDROcodone/ACETAMINOPHEN 10/325 TAB PO PRN (12:34)
--- NOTE | 2024-07-23 17:12 | Hospitalist Progress Note ---
Date of Service July 23, 2024 Assessment & Plan (1) Acute hypoxemic respiratory failure: Plan: 74yo male with morbid obesity, JERICA, DM2, leg and scrotal edema who developed erythematous scrotum and imaging concerning for abscess/fluid collections, there was also concern for Artemio's for which he is high risk. patient was extubated following his b/l Hydrocelectomy, drainage of scrotal fluid collection, and Bilateral spermatocelectomy by Dr Orona however, while in PACU, he developed post-op pulmonary insufficiency and was re- intubated and admitted to the ICU extubated successfully on 07/17/24 cause(s) of acute hypoxic resp failure - ?pneumonia (RLL/LLL), decompensated CHF, JERICA/OHS, atelectasis cont BIPAP at HS and NC O2 during the day cont IV abx (Ceftriaxone 07/16, meropenem , and ertapenem since 07/17) cont diuresis of note - patient is not on CPAP or BIPAP at the SNF in [place] but should be on such upon discharge to SNF (2) Acute metabolic encephalopathy: Plan: improved/resolved infection, hospital psychosis, hypercapnia, etc all likely to blame treat ?pneumonia treat hypercapnia with BIPAP HS most recent VBG with normal pH and compensated hypercapnia (3) Diabetes mellitus, type 2: Plan: a1c c/w pre-DM only (5.9%) glucose levels all <150 while here (4) Chronic atrial fibrillation: Plan: cont Xarelto rates are controlled without AV bryanna agents (5) Spermatocele of epididymis, multiple: Plan: s/p b/l Hydrocelectomy, drainage of scrotal fluid collection, and Bilateral spermatocelectomy by Dr Orona on 07/16/24 defer Rx and management to urology remains on IV ertapenem daily unfortunately he has had no cultures taken during his hospitalization does have prior h/o ESBL Klebsiella UTI (06/23/24 - see scanned lab results from [facility]) per urology - only urology should remove burr; 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 and thus will defer all burr management to urology team (6) Acute on chronic heart failure with preserved ejection fraction (HFpEF): Plan: cont diuresis contraction alkalosis - had been on diamox 250mg daily will stop diamox as alkalosis resolved gave bumex 1mg IV x 1 this am repeat bumex 0.5mg x 1 this afternoon BMP am (7) Obstructive sleep apnea: Plan: BIPAP HS (8) Morbid obesity with BMI of 50.0-59.9, adult: Plan: BMI 55 TSH today wnl (9) Candidiasis: Plan: groin, etc nystatin topical powder TID Plan cont PT/OT try to get OOB to chair tomorrow even if lift is used dispo - SNF in [place] urology asked for medical team to be primary attending; happy to do such Admission and Anticipated Discharge Date Admission Date: July 16, 2024 Subjective patient very awake/alert today knew he was in "[facility]" able to recount his recent medical history states he had knee surgery at [facility] in 2023 and following such went to [facility] in [place] has been there since at SNF they are using a lift to get him from the bed to chair knew it was June 2024 denies dyspnea at rest with respect to his LE edema has had such "for a long time" - he can't really say how long Review of Systems Review of Systems: cv - no orthopnea; no chest pain pulm - no dyspnea at rest GI - no abd pain or N/V Physical Exam Physical Exam: gen - morbidly obese, NAD, awake/alert today neck - no obvious JVD mouth - MMM heart - irregularly irregular, s1 s2, no obvious murmur lungs - decreased BS bases, no rales, no wheeze, good airation abd - soft NT ND BS+ ext - pulses b/l feet 2+, trace edema b/l feet/ankles/shins skin - stasis changes b/l shins Results & Data Results & Data Vital Signs (Past 12 Hours) Vital Signs Temp Pulse Pulse Resp BP BP Pulse Ox 07/23/24 15:44 36.3 C L 88 20 120/75 90 07/23/24 12:05 36.5 C 89 20 109/66 91 07/23/24 08:02 94 H 07/23/24 07:28 36.6 C 118 H 24 131/75 95 07/23/24 06:00 36.5 C 80 20 122/76 93 O2 Del Method O2 Flow Rate 07/23/24 15:44 Nasal Cannula 4 07/23/24 12:05 Nasal Cannula 6 07/23/24 08:02 07/23/24 07:28 Nasal Cannula 6 07/23/24 06:00 Nasal Cannula 6 Laboratory Results Laboratory Results - last 24 hr 07/23/24 07/23/24 05:30 08:18 Sodium 143 Potassium 3.9 Chloride 103 Carbon Dioxide 34 H Anion Gap 6 BUN 24 H Creatinine 0.81 Est Cr Clr Drug Dosing 134.2 eGFR 93.10 BUN/Creatinine Ratio 29.6 H Glucose 108 H POC Glucose 100 H Calcium 9.6 Magnesium 2.0 PG Care Time/CCT Total # of Minutes Spent Total Time Spent with Patient: Total time spent is greater than 50% in coordination of care (as documented) at patient's floor/unit and/or counseling patient: Coding Level of Care Code 76337 SUB INP/OBS CARE 2/35MIN Diagnoses Acute hypoxemic respiratory failure J96.01 Acute metabolic encephalopathy G93.41 Diabetes mellitus, type 2 E11.9 Chronic atrial fibrillation I48.20 Spermatocele of epididymis, multiple N43.42 Acute on chronic heart failure with preserved ejection fraction (HFpEF) I50.33 Obstructive sleep apnea G47.33 Morbid obesity with BMI of 50.0-59.9, adult E66.01; Z68.43 Candidiasis B37.9
[2024-07-23] MEDS: BUMETANIDE 0.5 MG in SYRINGE 0 ML IV ONE (18:22)
[2024-07-23] MEDS: ACETAMINOPHEN 500 MG TAB PO SCH (22:08)
[2024-07-23] MEDS: NYSTATIN POWDER 15GM BTL EXT SCH (22:12)
--- NOTE | 2024-07-24 07:52 | Pulmonology Progress Note ---
Date of Service July 24, 2024 Assessment & Plan (1) Acute hypoxemic respiratory failure: (2) Obstructive sleep apnea: (3) Chronic atrial fibrillation: (4) Pulmonary edema: (5) (HFpEF) heart failure with preserved ejection fraction: Plan 74-year-old male who was admitted to the ICU initially post hydrocelectomy Past medical history: A-fib on Xarelto, diabetes type 2, hypertension, dyslipidemia, morbid obesity, JERICA/OHS on BiPAP at home Pulmonary consulted for persistent hypoxia VBG 07/18/2024: 7.37// Chest x-ray 07/18/2024 personally reviewed: Portable film, good inspiratory effort, blunting of bilateral costophrenic angles, increase hilar markings bilaterally, increased cardiac silhouette 2D echo on 07/20/2024: Good EF, patient does have history of A-fib, diastolic dysfunction cannot be ruled out. -- Acute hypoxic respiratory failure Dependent atelectasis from BMI of 56 leading to VQ mismatch is a possibility Encourage incentive spirometry and out of bed to chair is much as possible. BNP 108 Procalcitonin negative Nasal MRSA negative Continue with incentive spirometry, out of bed to chair O2 supplementation to keep oxygen saturation between 90-92% --JERICA/OHS On BiPAP at home, is not compliant with it at home Importance of compliance at home as well as in the hospital explained -- Metabolic alkalosis Likely a combination of contraction alkalosis as well as compensation to chronic respiratory acidosis -- A-fib On Xarelto at home Plan: In/out: -1.9 L, urine output 3125, -12 L total since coming to the hospital Goal saturation 90 to 92%. Do not over oxygenate the patient BiPAP nightly and as needed shortness of breath Case was discussed with RN at bedside No further recommendation from pulmonary perspective, will sign off Please call directly with any questions Please note the above document was generated using voice recognition software. It may contain grammatical, syntax or spelling errors.Any formal questions or concerns about the content, text or information contained within the body of this dictation should be directly addressed to the provider for clarification. Admission and Anticipated Discharge Date Admission Date: July 16, 2024 Subjective Patient seen and examined at bedside. No acute distress, no adverse events overnight Was sleeping when I entered the room. Says the breathing is doing okay Did not use BiPAP overnight No chest pain, denies any cough Fair appetite Review of Systems 2 Review of Systems: All systems reviewed & are unremarkable except as noted in Subjective Physical Exam 2 Physical Exam: Constitutional: No acute distress HEENT: EOMI, PERRLA, hard to hear Respiratory system: Decreased air entry bilaterally, no wheeze, no rhonchi, minimal crackles bilateral lower lobes CVS: S1-S2 positive, no murmurs or gallops Abdomen: Soft, nontender, nondistended, positive bowel sounds x4, obese Extremities: +2 pulses bilaterally radialis/ dorsalis pedis, no cyanosis, +1 pitting edema bilateral lower extremity Neuro: Awake alert oriented x3 Psych: Normal mood and affect G/U: Positive Maldonado Skin: no rashes, warm and dry Lymphatic: no cervical or axillary lymphadenopathy Results & Data Results & Data Vital Signs (Past 12 Hours) Vital Signs Temp Pulse Pulse Resp BP Pulse Ox O2 Del Method 07/24/24 07:21 90 07/24/24 03:31 36.6 C 92 H 20 154/77 H 92 Nasal Cannula 07/23/24 23:16 80 24 91 07/23/24 23:16 Nasal Cannula 07/23/24 21:57 92 H O2 Flow Rate 07/24/24 07:21 07/24/24 03:31 4 07/23/24 23:16 6 07/23/24 23:16 5 07/23/24 21:57 Laboratory Results 07/19/24 06:00 07/23/24 05:30 PG Care Time/CCT Total # of Minutes Spent Total Time Spent with Patient: Total time spent is greater than 50% in coordination of care (as documented) at patient's floor/unit and/or counseling patient: Coding Level of Care Code 29541 SUB INP/OBS CARE 2/35MIN Diagnoses Acute hypoxemic respiratory failure J96.01 Obstructive sleep apnea G47.33 Chronic atrial fibrillation I48.20 Pulmonary edema J81.1 (HFpEF) heart failure with preserved ejection fraction I50.30
[2024-07-24] MEDS: BUMETANIDE 1 MG in SYRINGE 0 ML IV ONE (10:48)
[2024-07-24 12:22] LABS: BUN Creatinine Ratio 30.6 (10-20); Calcium 8.8 mg/dl (8.6-10.3); Creatinine Clr Calc Pharmacy 175.4 ml/min; Potassium 4.2 mmol/L (3.5-5.1)
[2024-07-24] MEDS: BUMETANIDE 0.5 MG in SYRINGE 0 ML IV ONE (16:07)
--- NOTE | 2024-07-24 17:55 | Hospitalist Progress Note ---
Date of Service July 24, 2024 Assessment & Plan (1) Acute hypoxemic respiratory failure: Plan: 74yo male with morbid obesity, JERICA, DM2, leg and scrotal edema who developed erythematous scrotum and imaging concerning for abscess/fluid collections, there was also concern for Artemio's for which he is high risk. patient was extubated following his b/l Hydrocelectomy, drainage of scrotal fluid collection, and Bilateral spermatocelectomy by Dr Orona however, while in PACU, he developed post-op pulmonary insufficiency and was re- intubated and admitted to the ICU extubated successfully on 07/17/24 cause(s) of acute hypoxic resp failure - ?pneumonia (RLL/LLL), decompensated CHF, JERICA/OHS, atelectasis cont BIPAP at HS and NC O2 during the day cont IV abx (Ceftriaxone 07/16, meropenem 07/16-, and ertapenem since 07/17) - day #9 of carbapenam treatment cont diuresis of note - patient is not on CPAP or BIPAP at the SNF in [place] but should be on such upon discharge to SNF (2) Acute metabolic encephalopathy: Plan: improved waxes/wanes infection, hospital psychosis, hypercapnia, etc all likely to blame treat ?pneumonia treat hypercapnia with BIPAP HS most recent VBG with normal pH and compensated hypercapnia check an ammonia level in am (3) Diabetes mellitus, type 2: Plan: a1c c/w pre-DM only (5.9%) glucose levels all <150 while here (4) Chronic atrial fibrillation: Plan: cont Xarelto rates are controlled without AV bryanna agents (5) Spermatocele of epididymis, multiple: Plan: s/p b/l Hydrocelectomy, drainage of scrotal fluid collection, and Bilateral spermatocelectomy by Dr Orona on 07/16/24 defer Rx and management to urology remains on IV ertapenem daily day #9 today of carbapenem therapy plan 10 days then stop unfortunately he has had no cultures taken during his hospitalization does have prior h/o ESBL Klebsiella UTI (06/23/24 - see scanned lab results from [facility]) per urology - only urology should remove burr; 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 and thus will defer all burr management to urology team (6) Acute on chronic heart failure with preserved ejection fraction (HFpEF): Plan: cont diuresis suspect we are approaching euvolemia, however gave bumex 1mg IV x 1 again this am repeat bumex 0.5mg x 1 this afternoon BMP am suspect we can transition to PO diuretics this weekend I looked through extensive records from the SNF - I could not find his "dry" weight (7) Obstructive sleep apnea: Plan: BIPAP HS (if he will use such) (8) Morbid obesity with BMI of 50.0-59.9, adult: Plan: BMI 55 TSH wnl (9) Candidiasis: Plan: groin, etc nystatin topical powder TID Plan cont PT/OT I asked staff to use lift to get him to a chair - all parties (therapy, nursing, etc) feel he is not safe to do such due to impulsivity and episodes of confusion dispo - SNF in [place]; Saturday? Admission and Anticipated Discharge Date Admission Date: July 16, 2024 Subjective no events overnight he was confused today - asking to go home, stating "I can go home" I reminded him that his home is at [facility] in [place] he became agitated, stating he doesn't like it there, and to "just let him go home" reminded him that he doesn't walk and living alone would not be safe he denied any physical complaints today eating at least 50% of meals urology to remove his rena drains on Saturday Review of Systems Review of Systems: cv - no orthopnea, no chest pain pulm - no dyspnea at rest GI - no abd pain Physical Exam Physical Exam: gen - morbidly obese, NAD, awake/alert - a little agitated at times neck - no obvious JVD mouth - MMM heart - irregularly irregular, s1 s2, no obvious murmur lungs - decreased BS bases, no rales, no wheeze, good airation abd - soft NT ND BS+ ext - pulses b/l feet 2+, no edema b/l feet/ankles/shins skin - stasis changes b/l shins Results & Data Results & Data Vital Signs (Past 12 Hours) Vital Signs Temp Pulse Pulse Resp BP BP Pulse Ox 07/24/24 15:21 36.7 C 80 18 128/72 92 07/24/24 13:55 87 07/24/24 11:32 36.5 C 85 19 109/66 98 07/24/24 07:55 07/24/24 07:52 36.5 C 86 18 147/70 H 94 07/24/24 07:21 90 O2 Del Method O2 Flow Rate 07/24/24 15:21 Nasal Cannula 3 07/24/24 13:55 07/24/24 11:32 Nasal Cannula 5 07/24/24 07:55 Nasal Cannula 07/24/24 07:52 Nasal Cannula 5 07/24/24 07:21 Laboratory Results Laboratory Results - last 24 hr 07/24/24 07/24/24 08:22 11:42 Sodium 142 Potassium 4.2 Chloride 105 Carbon Dioxide 33 H Anion Gap 4 BUN 19 Creatinine 0.62 Est Cr Clr Drug Dosing 175.4 eGFR 100.92 BUN/Creatinine Ratio 30.6 H Glucose 117 H POC Glucose 111 H Calcium 8.8 PG Care Time/CCT Total # of Minutes Spent Total Time Spent with Patient: Total time spent is greater than 50% in coordination of care (as documented) at patient's floor/unit and/or counseling patient: Coding Level of Care Code 04973 SUB INP/OBS CARE 2/35MIN Diagnoses Acute hypoxemic respiratory failure J96.01 Acute metabolic encephalopathy G93.41 Diabetes mellitus, type 2 E11.9 Chronic atrial fibrillation I48.20 Spermatocele of epididymis, multiple N43.42 Acute on chronic heart failure with preserved ejection fraction (HFpEF) I50.33 Obstructive sleep apnea G47.33 Morbid obesity with BMI of 50.0-59.9, adult E66.01; Z68.43 Candidiasis B37.9
--- NOTE | 2024-07-25 09:47 | Urology Progress Note ---
Date of Service July 25, 2024 Assessment & Plan (1) Bilateral hydrocele: Plan Very complex patient status post bilateral hydrocelectomy earlier this week Gradual recovery after initial ICU requirement Continues to progress He is certainly stable for discharge home from a standpoint, however we greatly appreciate internal medicine assistance with management of his numerous chronic medical issues Will defer ultimate discharge timing to that service Will arrange for outpatient follow-up and drain removal later this week Admission and Anticipated Discharge Date Admission Date: July 16, 2024 Subjective Doing okay from a standpoint He denies any pain in his scrotum Tolerating his surgical recovery very well from a scrotal standpoint He still has a drain in place Labs are okay, oxygen saturations are still relatively poor Otherwise hemodynamically stable Physical Exam Physical Exam: Obese, not short of breath appearing Abdomen soft Scrotum with some erythema and a drain in place, incision appropriate Overall, this is following the expected recovery course and appearance matches expectations, does not show signs of active infection Results & Data Vital Signs (Past 12 Hours) Vital Signs Temp Pulse Pulse Resp BP Pulse Ox O2 Del Method 07/25/24 07:15 36.7 C 91 H 20 110/74 88 L Nasal Cannula 07/25/24 03:28 36.7 C 88 18 100/64 91 Nasal Cannula 07/24/24 23:07 94 H 18 92 07/24/24 22:22 36.6 C 77 20 117/71 90 Nasal Cannula 07/24/24 22:10 81 O2 Flow Rate 07/25/24 07:15 5 07/25/24 03:28 5 07/24/24 23:07 5 07/24/24 22:22 3 07/24/24 22:10 PG Care Time/CCT Total # of Minutes Spent Total Time Spent with Patient: Total time spent is greater than 50% in coordination of care (as documented) at patient's floor/unit and/or counseling patient: Coding Level of Care Code 89309 SUB INP/OBS CARE 2/35MIN Diagnoses Bilateral hydrocele N43.3
[2024-07-25 10:26] LABS: BUN Creatinine Ratio 31.6 (10-20); Calcium 9.5 mg/dl (8.6-10.3); Potassium 4.3 mmol/L (3.5-5.1)
--- NOTE | 2024-07-25 10:32 | Pulmonology Progress Note ---
Date of Service July 25, 2024 Assessment & Plan (1) Acute hypoxemic respiratory failure: (2) Obstructive sleep apnea: (3) Chronic atrial fibrillation: (4) Pulmonary edema: (5) (HFpEF) heart failure with preserved ejection fraction: Plan 74-year-old male who was admitted to the ICU initially post hydrocelectomy Past medical history: A-fib on Xarelto, diabetes type 2, hypertension, dyslipidemia, morbid obesity, JERICA/OHS on BiPAP at home Pulmonary consulted for persistent hypoxia VBG 07/18/2024: 7.37/75/ Chest x-ray 07/18/2024 personally reviewed: Portable film, good inspiratory effort, blunting of bilateral costophrenic angles, increase hilar markings bilaterally, increased cardiac silhouette 2D echo on 07/20/2024: Good EF, patient does have history of A-fib, diastolic dysfunction cannot be ruled out. -- Acute hypoxic respiratory failure Dependent atelectasis from BMI of 56 leading to VQ mismatch is a possibility Encourage incentive spirometry and out of bed to chair is much as possible. BNP 108 Procalcitonin negative Nasal MRSA negative Continue with incentive spirometry, out of bed to chair O2 supplementation to keep oxygen saturation between 90-92% --JERICA/OHS On BiPAP at home, is not compliant with it at home Importance of compliance at home as well as in the hospital explained -- Metabolic alkalosis Likely a combination of contraction alkalosis as well as compensation to chronic respiratory acidosis -- A-fib On Xarelto at home Plan: In/out: - 1.1 L, urine output 1700, -13 L total since coming to the hospital Goal saturation 90 to 92%. Do not over oxygenate the patient BiPAP nightly and as needed shortness of breath Case was discussed with RN at bedside No further recommendation from pulmonary perspective, will sign off Please call directly with any questions Please note the above document was generated using voice recognition software. It may contain grammatical, syntax or spelling errors.Any formal questions or concerns about the content, text or information contained within the body of this dictation should be directly addressed to the provider for clarification. Admission and Anticipated Discharge Date Admission Date: July 16, 2024 Subjective Patient seen and examined at bedside. No acute distress, no adverse events overnight Breathing overall has improved. Uses BiPAP at night Denies any cough, no chest congestion Appetite is fair No nausea or vomiting Review of Systems 2 Review of Systems: All systems reviewed & are unremarkable except as noted in Subjective Physical Exam 2 Physical Exam: Constitutional: No acute distress HEENT: EOMI, PERRLA, hard to hear Respiratory system: Decreased air entry bilaterally, no wheeze, no rhonchi, mild crackles bilateral lower lobes CVS: S1-S2 positive, no murmurs or gallops Abdomen: Soft, nontender, nondistended, positive bowel sounds x4, obese Extremities: +2 pulses bilaterally radialis/ dorsalis pedis, no cyanosis, +1 pitting edema bilateral lower extremity Neuro: Awake alert oriented x3 Psych: Normal mood and affect G/U: Positive Maldonado Skin: no rashes, warm and dry Lymphatic: no cervical or axillary lymphadenopathy Results & Data Results & Data Vital Signs (Past 12 Hours) Vital Signs Temp Pulse Pulse Resp BP Pulse Ox O2 Del Method 07/25/24 07:15 36.7 C 91 H 20 110/74 88 L Nasal Cannula 07/25/24 03:28 36.7 C 88 18 100/64 91 Nasal Cannula 07/24/24 23:07 94 H 18 92 O2 Flow Rate 07/25/24 07:15 5 07/25/24 03:28 5 07/24/24 23:07 5 Laboratory Results 07/19/24 06:00 07/25/24 09:48 PG Care Time/CCT Total # of Minutes Spent Total Time Spent with Patient: Total time spent is greater than 50% in coordination of care (as documented) at patient's floor/unit and/or counseling patient: Coding Level of Care Code 79766 SUB INP/OBS CARE 2/35MIN Diagnoses Acute hypoxemic respiratory failure J96.01 Obstructive sleep apnea G47.33 Chronic atrial fibrillation I48.20 Pulmonary edema J81.1 (HFpEF) heart failure with preserved ejection fraction I50.30
[2024-07-25] MEDS: BUMETANIDE 1 MG in SYRINGE 0 ML IV ONE (12:09)
--- NOTE | 2024-07-25 19:32 | Hospitalist Progress Note ---
Date of Service July 25, 2024 Assessment & Plan (1) Acute hypoxemic respiratory failure: Plan: 74yo male with morbid obesity, JERICA, DM2, leg and scrotal edema who developed erythematous scrotum and imaging concerning for abscess/fluid collections, there was also concern for Artemio's for which he is high risk. patient was extubated following his b/l Hydrocelectomy, drainage of scrotal fluid collection, and Bilateral spermatocelectomy by Dr Orona however, while in PACU, he developed post-op pulmonary insufficiency and was re- intubated and admitted to the ICU extubated successfully on 07/17/24 cause(s) of acute hypoxic resp failure - ?pneumonia (RLL/LLL), decompensated CHF, JERICA/OHS, atelectasis cont BIPAP at HS and NC O2 during the day cont IV abx (Ceftriaxone 07/16, meropenem 07/16-, and ertapenem since 07/17) - day #10 of carbapenam treatment stop ertapenem after today's dose cont diuresis w/ bumex of note - patient is not on CPAP or BIPAP at the [facility] in [place] but should be on such upon discharge to [facility] unfortunately many nights he does not wear it - simply refuses (2) Acute metabolic encephalopathy: Plan: waxes/wanes infection, hospital psychosis, hypercapnia, etc all likely to blame treated pneumonia trying to treat hypercapnia with BIPAP HS most recent VBG with normal pH and compensated hypercapnia ammonia wnl today schedule zyprexa 2.5mg HS as he is not sleeping that well; should help with periods of agitation (3) Diabetes mellitus, type 2: Plan: a1c c/w pre-DM only (5.9%) glucose levels all <150 while here (4) Chronic atrial fibrillation: Plan: cont Xarelto rates are controlled without AV bryanna agents (5) Spermatocele of epididymis, multiple: Plan: s/p b/l Hydrocelectomy, drainage of scrotal fluid collection, and Bilateral spermatocelectomy by Dr Orona on 07/16/24 defer Rx and management to urology remains on IV ertapenem daily day #10 today of carbapenem therapy stop abx today unfortunately he has had no cultures taken during his hospitalization does have prior h/o ESBL Klebsiella UTI (06/23/24 - see scanned lab results from [facility]) per urology - only urology should remove burr; 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 and thus will defer all burr management to urology team (6) Acute on chronic heart failure with preserved ejection fraction (HFpEF): Plan: cont diuresis suspect we are approaching euvolemia, however bumex 1mg x 1 today BMP am suspect we can transition to PO diuretics tomorrow I looked through extensive records from the SNF - I could not find his "dry" weight (7) Obstructive sleep apnea: Plan: BIPAP HS (if he will use such) (8) Morbid obesity with BMI of 50.0-59.9, adult: Plan: BMI 55 TSH wnl (9) Candidiasis: Plan: groin, etc nystatin topical powder TID Plan cont PT/OT I asked staff to use lift to get him to a chair - all parties (therapy, nursing, etc) feel he is not safe to do such due to impulsivity and episodes of confusion stop tele - has been rate-controlled a.fib for 9 days straight move to med/surg with lots of sunlight/windows - that will help with confusion dispo - SNF in [place]; Saturday? Admission and Anticipated Discharge Date Admission Date: July 16, 2024 Subjective only used bipap briefly overnight he has been agitated today, taking his O2 off, taking his monitor leads off during my visit he was calm fortunately and directable he again - like other visits - voices "he wants to go home - I don't want to go back to that place [[facility]]" has back pain - lumbar - chronic "I don't take anything for it" eating fair +stool 07/24/24 Review of Systems Review of Systems: gen - fatigued, weak cv - no chest pain pulm - no dyspnea at rest; no cough GI - no N/V Physical Exam Physical Exam: gen - morbidly obese, NAD, awake/alert, was not agitated for me - directable, follows commands neck - no obvious JVD mouth - MMM heart - irregularly irregular, s1 s2, no obvious murmur lungs - decreased BS bases, no rales, no wheeze, good airation abd - soft NT ND BS+ ext - pulses b/l feet 2+, no edema b/l feet/ankles/shins skin - stasis changes b/l shins - rena drains in place x 2 in scrotum; no scrotal erythema Results & Data Results & Data Vital Signs (Past 12 Hours) Vital Signs Temp Pulse Resp BP Pulse Ox O2 Del Method O2 Flow Rate 07/25/24 16:48 36.7 C 92 H 20 107/67 92 Nasal Cannula 5 07/25/24 16:30 Nasal Cannula 5 07/25/24 15:33 36.4 C L 96 H 20 134/64 92 Nasal Cannula 5 07/25/24 11:29 36.7 C 95 H 20 106/70 94 Nasal Cannula 5 07/25/24 10:05 Nasal Cannula 5 Laboratory Results Laboratory Results - last 48 hr 07/24/24 07/25/24 07/25/24 11:42 08:23 09:48 VBG pH VBG pCO2 VBG pO2 VBG HCO3 VBG O2 Saturation VBG Base Excess Sodium 142 142 Potassium 4.2 4.3 Chloride 105 105 Carbon Dioxide 33 H 31 Anion Gap 4 6 BUN 19 18 Creatinine 0.62 0.57 L Est Cr Clr Drug Dosing 175.4 190.0 eGFR 100.92 103.52 BUN/Creatinine Ratio 30.6 H 31.6 H Glucose 117 H 99 POC Glucose 95 Calcium 8.8 9.5 Ammonia 19.0 PG Care Time/CCT Total # of Minutes Spent Total Time Spent with Patient: Total time spent is greater than 50% in coordination of care (as documented) at patient's floor/unit and/or counseling patient: Coding Level of Care Code 87199 SUB INP/OBS CARE 2/35MIN Diagnoses Acute hypoxemic respiratory failure J96.01 Acute metabolic encephalopathy G93.41 Diabetes mellitus, type 2 E11.9 Chronic atrial fibrillation I48.20 Spermatocele of epididymis, multiple N43.42 Acute on chronic heart failure with preserved ejection fraction (HFpEF) I50.33 Obstructive sleep apnea G47.33 Morbid obesity with BMI of 50.0-59.9, adult E66.01; Z68.43 Candidiasis B37.9
[2024-07-25] MEDS: OLANZAPINE 2.5 MG TAB PO SCH (20:41)
[2024-07-26] MEDS: OLANZAPINE 2.5 MG TAB PO STA (00:57)
[2024-07-26 07:31] LABS: Base Excess VBG 6.6 mEq/L; HCO3 VBG 32 mmol/L; Oxygen Saturation VBG < 60.0 %; PCO2 VBG 47 mmHg (38-50); PO2 VBG 37 mmHg; pH VBG 7.44 (7.36-7.41)
[2024-07-26 07:54] LABS: BUN Creatinine Ratio 31.6 (10-20); Calcium 9.5 mg/dl (8.6-10.3); Potassium 3.6 mmol/L (3.5-5.1)
[2024-07-26] MEDS: BUMETANIDE 1 MG TAB PO ONE (10:58)
--- NOTE | 2024-07-26 19:25 | Hospitalist Progress Note ---
Date of Service July 26, 2024 Assessment & Plan (1) Acute hypoxemic respiratory failure: Plan: 74yo male with morbid obesity, JERICA, DM2, leg and scrotal edema who developed erythematous scrotum and imaging concerning for abscess/fluid collections, there was also concern for Artemio's for which he is high risk. patient was extubated following his b/l Hydrocelectomy, drainage of scrotal fluid collection, and Bilateral spermatocelectomy by Dr Orona however, while in PACU, he developed post-op pulmonary insufficiency and was re- intubated and admitted to the ICU extubated successfully on 07/17/24 cause(s) of acute hypoxic resp failure - ?pneumonia (RLL/LLL), decompensated CHF, JERICA/OHS, atelectasis cont BIPAP at HS and NC O2 during the day -- but most nights refusing the BIPAP finished 10 days of abx (Ceftriaxone 07/16, meropenem 07/16-, and ertapenem 07/17 to 07/25) - cont diuresis w/ bumex of note - patient is not on CPAP or BIPAP at the SNF in [place] but should be on such upon discharge to SNF perhaps he will better comply once back at SNF (2) Acute metabolic encephalopathy: Plan: worse infection, hospital psychosis, hypercapnia, etc all likely to blame treated pneumonia VBG wnl today ammonia wnl cont zyprexa but increase to 5mg HS and add melatonin 3mg HS blinds open during the day/closed at night etc. consider imaging - MRI brain (3) Diabetes mellitus, type 2: Plan: a1c c/w pre-DM only (5.9%) glucose levels all <150 while here (4) Chronic atrial fibrillation: Plan: cont Xarelto rates are controlled without AV bryanna agents (5) Spermatocele of epididymis, multiple: Plan: s/p b/l Hydrocelectomy, drainage of scrotal fluid collection, and Bilateral spermatocelectomy by Dr Orona on 07/16/24 defer Rx and management to urology s/p 10 days of carbapenem therapy all abx stopped unfortunately he has had no cultures taken during his hospitalization does have prior h/o ESBL Klebsiella UTI (06/23/24 - see scanned lab results from [facility]) per urology - only urology should remove burr; 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 (6) Acute on chronic heart failure with preserved ejection fraction (HFpEF): Plan: resolved transition to PO bumex 2mg daily for maintenance (7) Obstructive sleep apnea: Plan: BIPAP HS (if he will use such) (8) Morbid obesity with BMI of 50.0-59.9, adult: Plan: BMI 54 TSH wnl (9) Candidiasis: Plan: groin, etc nystatin topical powder TID Plan cont PT/OT I asked staff to use lift to get him to a chair - all parties (therapy, nursing, etc) feel he is not safe to do such due to impulsivity and episodes of confusion dispo - SNF in [place] confusion needs to be better before returning Admission and Anticipated Discharge Date Admission Date: July 16, 2024 Subjective per staff patient sundowned much of last night was agitated needed extra dose of zyprexa today - remains confused no combativeness - just very confused during my visit he did not remember me from multiple past visits he told me that last night "he was at a hotel with the [employer]" Review of Systems Review of Systems: Unobtainable due to cognitive status Physical Exam Physical Exam: gen - morbidly obese, NAD, awake/alert but very confused; only oriented to person and year but thinks he is at a [employer]ental [employer] neck - no obvious JVD mouth - MMM heart - irregularly irregular, s1 s2, no obvious murmur lungs - decreased BS bases, no rales, no wheeze, good airation abd - soft NT ND BS+ ext - pulses b/l feet 2+, no edema b/l feet/ankles/shins skin - stasis changes b/l shins Results & Data Results & Data Vital Signs (Past 12 Hours) Vital Signs O2 Del Method O2 Flow Rate 07/26/24 09:00 Nasal Cannula 5 Laboratory Results Laboratory Results - last 24 hr 07/26/24 07/26/24 07:19 08:37 VBG pH 7.44 H VBG pCO2 47 VBG pO2 37 VBG HCO3 32 VBG O2 Saturation < 60.0 VBG Base Excess 6.6 Sodium 142 Potassium 3.6 Chloride 104 Carbon Dioxide 31 Anion Gap 7 BUN 18 Creatinine 0.57 L Est Cr Clr Drug Dosing 190.0 eGFR 103.52 BUN/Creatinine Ratio 31.6 H Glucose 110 H POC Glucose 118 H Calcium 9.5 PG Care Time/CCT Total # of Minutes Spent Total Time Spent with Patient: Total time spent is greater than 50% in coordination of care (as documented) at patient's floor/unit and/or counseling patient: Coding Level of Care Code 02455 SUB INP/OBS CARE 2/35MIN Diagnoses Acute hypoxemic respiratory failure J96.01 Acute metabolic encephalopathy G93.41 Diabetes mellitus, type 2 E11.9 Chronic atrial fibrillation I48.20 Spermatocele of epididymis, multiple N43.42 Acute on chronic heart failure with preserved ejection fraction (HFpEF) I50.33 Obstructive sleep apnea G47.33 Morbid obesity with BMI of 50.0-59.9, adult E66.01; Z68.43 Candidiasis B37.9
[2024-07-26] MEDS: MELATONIN 3 MG TAB PO SCH (21:27)
[2024-07-26] MEDS: OLANZapine 5 MG TABLET PO SCH (21:28)
--- NOTE | 2024-07-27 08:49 | Urology Progress Note ---
Date of Service July 27, 2024 Assessment & Plan (1) Bilateral hydrocele: Plan Very complex patient status post bilateral hydrocelectomy Gradual recovery after initial ICU requirement, extubated 07/17/24 Has been undergoing diuresis and management of acute hypoxemic respiratory failure, continues to progress Afebrile, hemodynamically stable on supplemental oxygen He has completed course of IV antibiotics Stable for discharge home from a standpoint when medically stable Appreciate assistance from hospital medicine service with management of his numerous chronic medical issues Will defer ultimate discharge timing to that service Patient can have bilateral [place] drains removed today, discussed with nursing Maintain Maldonado catheter for now Will arrange for outpatient follow-up with our service Admission and Anticipated Discharge Date Admission Date: July 16, 2024 Subjective Patient seen and examined at bedside. He is awake and alert, resting in bed. He denies scrotal discomfort. Denies fever or chills. Maldonado intact. He is confused, cooperative this morning. Per notes, he has had some confusion with combativeness. Review of Systems Constitutional: as per Subjective / HPI Genitourinary: + as per Subjective / HPI Physical Exam Constitutional: + morbidly obese; no acute distress Respiratory: no respiratory distress supplemental oxygen Gastrointestinal (Abdomen): Percussion/Palpation: abdomen soft Psychiatric: Orientation: alert, oriented to person and cooperative Genitourinary: Scrotum with some erythema and bilateral rena drains in place, incision appropriate Results & Data Vital Signs (Past 12 Hours) Vital Signs Temp Pulse Resp BP Pulse Ox O2 Del Method O2 Flow Rate 07/27/24 07:30 36.5 C 85 16 101/63 93 Nasal Cannula 3 PG Care Time/CCT Total # of Minutes Spent Total Time Spent with Patient: Total time spent is greater than 50% in coordination of care (as documented) at patient's floor/unit and/or counseling patient: Coding Level of Care Code None Diagnoses Bilateral hydrocele N43.3
[2024-07-27 10:27] LABS: Hematocrit (blood only) 38.6 % (42.0-52.0); Hemoglobin 12.3 g/dl (14.0-18.0); Mean Corpuscular Hemoglobin 29.6 pg (25.0-34.0); Mean Corpuscular Hgb Conc 31.9 g/dL (32.0-36.0); Mean Corpuscular Volume 92.8 fL (80.0-100.0); Mean Platelet Volume 9.2 fL (9.4-12.4); Platelet Count 362 K/uL (130-400); RDW Standard Deviation 47.5 fL (36.4-46.3); Red Blood Count 4.16 M/uL (4.70-6.10)
[2024-07-27 10:47] LABS: BUN Creatinine Ratio 28.1 (10-20); Calcium 9.3 mg/dl (8.6-10.3); Magnesium 1.9 mg/dl (1.7-2.4); Potassium 3.7 mmol/L (3.5-5.1)
[2024-07-27] MEDS: BUMETANIDE 1 MG TAB PO SCH (12:32)
--- NOTE | 2024-07-27 18:34 | Hospitalist Progress Note ---
Date of Service July 27, 2024 Assessment & Plan (1) Acute hypoxemic respiratory failure: Plan: 74yo male with morbid obesity, JERICA, DM2, leg and scrotal edema who developed erythematous scrotum and imaging concerning for abscess/fluid collections, there was also concern for Artemio's for which he is high risk. patient was extubated following his b/l Hydrocelectomy, drainage of scrotal fluid collection, and Bilateral spermatocelectomy by Dr Orona however, while in PACU, he developed post-op pulmonary insufficiency and was re- intubated and admitted to the ICU extubated successfully on 07/17/24 cause(s) of acute hypoxic resp failure - ?pneumonia (RLL/LLL), decompensated CHF, JERICA/OHS, atelectasis cont BIPAP at HS and NC O2 during the day -- but most nights refusing the BIPAP finished 10 days of abx (Ceftriaxone 07/16, meropenem 07/16-, and ertapenem 07/17 to 07/25) cont diuresis w/ bumex - now over to PO bumex 2mg daily of note - patient is not on CPAP or BIPAP at the SNF in [place] but should be on such upon discharge to SNF perhaps he will better comply once back at SNF (2) Acute metabolic encephalopathy: Plan: infection, hospital psychosis, hypercapnia, etc all likely to blame treated pneumonia treated any urinary tract infection / scrotal infection most recent VBG wnl ammonia wnl cont zyprexa 5mg HS and melatonin 3mg HS blinds open during the day/closed at night etc. after getting 6+ hours of continuous sleep today, 07/27/24, Mr Gandhi woke up late afternoon awake, alert, more oriented, calm, and in good spirits hopefully the worst of his confusion is behind him attempted to call Geno, pt's primary contact in the chart, today 07/27/24 - no answer, left message this is the 3rd message I have left over the last week for Ms Lora unable to obtain any PMH or collateral information about Mr Gandhi's baseline MS (3) Diabetes mellitus, type 2: Plan: a1c c/w pre-DM only (5.9%) glucose levels all <150 while here (4) Chronic atrial fibrillation: Plan: cont Xarelto rates are controlled without AV bryanna agents (5) Spermatocele of epididymis, multiple: Plan: s/p b/l Hydrocelectomy, drainage of scrotal fluid collection, and Bilateral spermatocelectomy by Dr Orona on 07/16/24 defer Rx and management to urology s/p 10 days of carbapenem therapy all abx stopped unfortunately he has had no cultures taken during his hospitalization does have prior h/o ESBL Klebsiella UTI (06/23/24 - see scanned lab results from [facility]) rena drains to be removed today, 07/27/24 keep burr at this time, however (6) Acute on chronic heart failure with preserved ejection fraction (HFpEF): Plan: resolved transitioned to PO bumex 2mg daily for maintenance BMP today wnl; repeat BMP tomorrow (7) Obstructive sleep apnea: Plan: BIPAP HS (if he will use such) (8) Morbid obesity with BMI of 50.0-59.9, adult: Plan: BMI 54 TSH wnl (9) Candidiasis: Plan: groin, etc nystatin topical powder TID Plan cont PT/OT I asked staff to use lift to get him to a chair - all parties (therapy, nursing, etc) have felt he has not been safe to do such due to impulsivity and episodes of confusion dispo - SNF in [place] confusion needs to be better before returning - hopefully d/c next couple of days Admission and Anticipated Discharge Date Admission Date: July 16, 2024 Subjective slept off/on overnight with use of HS zyprexa did eat breakfast this am but since then has been sleeping soundly I rounded on Mr Gandhi about lunch-time I did not wake him urology gave permission for rena drains x 2 to be removed today burr to be kept in place I rechecked Mr Gandhi about 430pm this afternoon during this 2nd visit he was awake, alert, pleasant, more oriented, talking about "wanting to go home" was upright eating his dinner Physical Exam Physical Exam: during first visit today: gen - morbidly obese, NAD, sleeping soundly neck - no obvious JVD heart - irregularly irregular, s1 s2, no obvious murmur lungs - decreased BS bases, no rales, no wheeze, good airation abd - soft NT ND BS+ ext - pulses b/l feet 2+, no edema b/l feet/ankles/shins skin - stasis changes b/l shins - scrotum w/o signs of cellulitis; burr remains in place 2nd visit - AWAKE, ALERT, calm, no agita tion, more oriented (best he has looked in several days) Results & Data Results & Data Vital Signs (Past 12 Hours) Vital Signs Temp Pulse Resp BP Pulse Ox O2 Del Method O2 Flow Rate 07/27/24 15:28 36.6 C 80 18 112/77 95 Nasal Cannula 3 07/27/24 09:00 Nasal Cannula 3 07/27/24 07:30 36.5 C 85 16 101/63 93 Nasal Cannula 3 Laboratory Results Laboratory Results - last 24 hr 07/27/24 07/27/24 08:02 09:51 WBC 8.50 RBC 4.16 L Hgb 12.3 L Hct 38.6 L MCV 92.8 MCH 29.6 MCHC 31.9 L RDW Std Deviation 47.5 H RDW Coeff of Shekhar 14.0 Plt Count 362 MPV 9.2 L Sodium 142 Potassium 3.7 Chloride 103 Carbon Dioxide 33 H Anion Gap 6 BUN 16 Creatinine 0.57 L Est Cr Clr Drug Dosing 190.0 eGFR 103.52 BUN/Creatinine Ratio 28.1 H Glucose 156 H POC Glucose 112 H Calcium 9.3 Magnesium 1.9 PG Care Time/CCT Total # of Minutes Spent Total Time Spent with Patient: Total time spent is greater than 50% in coordination of care (as documented) at patient's floor/unit and/or counseling patient: Coding Level of Care Code 32174 SUB INP/OBS CARE 2/35MIN Diagnoses Acute hypoxemic respiratory failure J96.01 Acute metabolic encephalopathy G93.41 Diabetes mellitus, type 2 E11.9 Chronic atrial fibrillation I48.20 Spermatocele of epididymis, multiple N43.42 Acute on chronic heart failure with preserved ejection fraction (HFpEF) I50.33 Obstructive sleep apnea G47.33 Morbid obesity with BMI of 50.0-59.9, adult E66.01; Z68.43 Candidiasis B37.9
[2024-07-28 09:33] LABS: Calcium 9.6 mg/dl (8.6-10.3); Creatinine Clr Calc Pharmacy 154.7 ml/min; Potassium 4.1 mmol/L (3.5-5.1)
--- NOTE | 2024-07-28 18:25 | Hospitalist Progress Note ---
Date of Service July 28, 2024 Assessment & Plan (1) Acute hypoxemic respiratory failure: Plan: 74yo male with morbid obesity, JERICA, DM2, leg and scrotal edema who developed erythematous scrotum and imaging concerning for abscess/fluid collections, there was also concern for Artemio's for which he is high risk. patient was extubated following his b/l Hydrocelectomy, drainage of scrotal fluid collection, and Bilateral spermatocelectomy by Dr Orona however, while in PACU, he developed acute on chronic hypoxic and hypercarbic respiratory failure and was re-intubated and admitted to the ICU extubated successfully on 07/17/24 cause(s) of acute hypoxic resp failure - ?pneumonia (RLL/LLL), decompensated CHF, JERICA/OHS, atelectasis he certainly has underlying JERICA and OHS. Per his nursing facility today he has home CPAP machine but refuses to have it brought in by his family and generally refuses to wear it. He has been treated with BiPAP this admission but usually refuses it finished 10 days of abx (Ceftriaxone 07/16, meropenem 07/16-, and ertapenem 07/17 to 07/25) cont diuresis w/ bumex - now over to PO bumex 2mg daily weight continues to decrease, good urine output, he is down 20 pounds since admission. BMP stable today with normal creatinine and electrolytes (2) Acute metabolic encephalopathy: Plan: infection, hospital psychosis, hypercapnia, etc all likely to blame treated pneumonia treated any urinary tract infection / scrotal infection most recent VBG wnl ammonia wnl cont zyprexa decreased to 2.5 mg HS and melatonin 3mg HS blinds open during the day/closed at night etc. discussed with his nursing facility and he has been more forgetful recently and lethargic/slow to arouse and more confused when he wakes up this is certainly related to his hypercarbia from untreated JERICA/OHS I think that he is back to his recent baseline mental status (3) Diabetes mellitus, type 2: Plan: a1c c/w pre-DM only (5.9%) glucose levels all <150 while here (4) Chronic atrial fibrillation: Plan: cont Xarelto rates are controlled without AV bryanna agents (5) Spermatocele of epididymis, multiple: Plan: s/p b/l Hydrocelectomy, drainage of scrotal fluid collection, and Bilateral spermatocelectomy by Dr Orona on 07/16/24 defer Rx and management to urology s/p 10 days of carbapenem therapy all abx stopped unfortunately he has had no cultures taken during his hospitalization does have prior h/o ESBL Klebsiella UTI (06/23/24 - see scanned lab results from [facility] ([place] rena drains removed 07/27/2024 per my discussion with the urologist Dr. Orona do not remove Maldonado catheter, as replacement is exceedingly difficult Maldonado catheter should only be removed/exchanged by the urologist (6) Acute on chronic heart failure with preserved ejection fraction (HFpEF): Plan: resolved transitioned to PO bumex 2mg daily for maintenance (7) Obstructive sleep apnea: Plan: BIPAP HS (if he will use such) (8) Morbid obesity with BMI of 50.0-59.9, adult: Plan: BMI 54 TSH wnl (9) Candidiasis: Plan: groin, etc nystatin topical powder TID Plan cont PT/OT I asked staff to use lift to get him to a chair - all parties (therapy, nursing, etc) have felt he has not been safe to do such due to impulsivity and episodes of confusion multiple phone messages were left with his emergency contact during this admission but we were unable to reach her dispo - SNF in [place] tomorrow Admission and Anticipated Discharge Date Admission Date: July 16, 2024 Subjective napping and not on BiPAP slowly woke up and became alert and oriented x 4 with tactile and verbal stimulation denies any pain in his scrotum and swelling is significantly improved compared to admission denies shortness of breath and chest pain Physical Exam 2 Physical Exam: PHYSICAL EXAMINATION Last 24h vital signs reviewed, see documentation in flowsheet General: sleeping and was slow to arouse per usual HEENT: Normocephalic, atraumatic, pupils round and equal, sclerae anicteric, no conjunctival injection, moist mucus membranes Lungs: CTA bilaterally no wheezing or crackles Heart: very distant, regular Abdomen: Soft, nontender, nondistended. Bowel sounds present. Extremities: Warm, dry, well-perfused. 3+ lower extremity edema - significantly improved compared to admission scrotum is still swollen however significantly improved compared to admission, no longer erythematous Neuro: Alert and oriented x self, hospital, oriented to basic situation, face symmetric, moves 4 extremities Psych: pleasant, no agitation Results & Data Results & Data Vital Signs (Past 12 Hours) Vital Signs Temp Pulse Resp BP Pulse Ox O2 Del Method O2 Flow Rate 07/28/24 14:23 97.7 F 85 16 117/78 92 Nasal Cannula 3 07/28/24 10:40 Nasal Cannula 3 07/28/24 07:25 97.9 F 88 16 118/76 92 Nasal Cannula 2 Laboratory Results 07/27/24 09:51 07/28/24 08:39 PG Care Time/CCT Total # of Minutes Spent Total Time Spent with Patient: Total time spent is greater than 50% in coordination of care (as documented) at patient's floor/unit and/or counseling patient: Coding Level of Care Code 21524 SUB INP/OBS CARE 2/35MIN Diagnoses Acute hypoxemic respiratory failure J96.01 Acute metabolic encephalopathy G93.41 Diabetes mellitus, type 2 E11.9 Chronic atrial fibrillation I48.20 Spermatocele of epididymis, multiple N43.42 Acute on chronic heart failure with preserved ejection fraction (HFpEF) I50.33 Obstructive sleep apnea G47.33 Morbid obesity with BMI of 50.0-59.9, adult E66.01; Z68.43 Candidiasis B37.9
[2024-07-29 07:48] VITALS: BP 123/64; RESP 18; TEMP 97.7; O2SAT 92
[2024-07-29 12:35] VITALS: PULSE 80
--- NOTE | 2024-07-29 18:56 | Discharge Summary ---
Discharge Summary Date of Service July 29, 2024 Principal Dx & Hospital Course #1 = Principal Diagnosis (1) Acute hypoxemic respiratory failure: 74yo male with morbid obesity, JERICA, DM2, leg and scrotal edema who developed erythematous and severely swollen scrotum and imaging concerning for abscess/fluid collections, there was also concern for Artemio's for which he is high risk. underwent b/l Hydrocelectomy, drainage of scrotal fluid collection , and Bilateral spermatocelectomy by Dr Orona on 07/16/2024. The fluid collections were small, The bulk of the swelling was due to edema, and there was no evidence of Artemio's he completed a course of ertapenem for scrotal cellulitis which resolved. patient was extubated following his operation but developed acute on chronic hypoxic and hypercarbic respiratory failure while in the PACU and required reintubation extubated successfully on 07/17/24 cause(s) of acute hypoxic resp failure - primarily JERICA/OHS - he was lying too flat in PACU and basically occluded his airway, atelectasis, possible pneumonia which seems doubtful he certainly has underlying JERICA and OHS. Per his nursing facility today he has home CPAP machine but refuses to have it brought in by his family and generally refuses to wear it. He has been treated with BiPAP this admission but recently refusing it finished 10 days of abx (Ceftriaxone 07/16, meropenem 07/16-, and ertapenem 07/17 to 07/25) cont diuresis w/ bumex - now over to PO bumex 2mg daily weight continues to decrease, good urine output, he is down 20 pounds since admission. BMP stable today with normal creatinine and electrolytes he is actively diuresing with Bumex 2 mg daily, the dose will likely need to be reduced in 5 to 7 days. monitor BMP periodically because of diuretic dose adjustments recommend follow-up with sleep medicine and formal assessment for BiPAP, although he is unlikely to comply continue Mounjaro which will help his sleep apnea, diastolic heart failure, and OHS especially if he achieves significant weight loss (2) Acute metabolic encephalopathy: infection, hospital psychosis, hypercapnia, etc all likely to blame treated pneumonia treated any urinary tract infection / scrotal infection most recent VBG wnl ammonia wnl discussed with his nursing facility and he has been more forgetful recently and lethargic/slow to arouse and more confused when he wakes up this is certainly related to his hypercarbia from untreated JERICA/OHS I think that he is back to his recent baseline mental status (3) Diabetes mellitus, type 2: a1c c/w pre-DM only (5.9%) glucose levels all <150 while here continue Mounjaro and diabetic diet (4) Chronic atrial fibrillation: cont Xarelto rates are controlled without AV bryanna agents (5) Spermatocele of epididymis, multiple: s/p b/l Hydrocelectomy, drainage of scrotal fluid collection, and Bilateral spermatocelectomy by Dr Orona on 07/16/24 s/p 10 days of carbapenem therapy all abx stopped unfortunately he has had no cultures taken during his hospitalization does have prior h/o ESBL Klebsiella UTI (06/23/24 - see scanned lab results from [facility]) rena drains removed 07/27/2024 continue to elevate scrotum on stack of towels/blankets, effective diuresis will be essential in preventing recurrence of the severe scrotal edema per my discussion with the urologist Dr. 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 Maldonado catheter should only be removed/exchanged by the urologist, monthly in the office follow-up with urology (6) Acute on chronic heart failure with preserved ejection fraction (HFpEF): resolved TTE this admission was very limited study because of body habitus, normal ejection fraction grossly normal valves transitioned to PO bumex 2mg daily for maintenance (7) Obstructive sleep apnea: CPAP/BIPAP HS (if he will use such) (8) Morbid obesity with BMI of 50.0-59.9, adult: BMI 54 TSH wnl continue Mounjaro (9) Candidiasis: groin, etc nystatin topical powder TID Plan cont PT/OT Notes For Next Care Provider Bumex dose will likely need to be decreased within 5 to 7 days since he is having active diuresis on the 2 mg dose if Bumex proves ineffective in the future would change to torsemide which will have better GI absorption Medication Changes From Visit furosemide stopped, replaced with Bumex Admission HPI Per Admitting Provider Patient here for procedure. Patient has severe scrotal edema with chronic severe vascular and cardiac issues with significant edematous changes of the lower extremities with brawny, woody, pitting edema and severe mobility issues with morbid obesity. Patient has been having increasing issues with recurrent epididymitis testicular pain scrotal edema cellulitis and bother. Patient has combination of significant scrotal cellulitis and scrotal edema as well as significant hydrocele bilaterally. No changes in medical issues. Significant chronic medical issues with severe exacerbation with hospitalization secondary to scrotal problems. No major changes in urinary issues. Continued issues and concerns. No change in pain or discomfort. No severe fevers or chills. No chest pain or shortness of breath. Risks and benefits discussed at length for procedure. These include bleeding, infection, injury to surrounding tissues or organs, and risks associated with anesthesia. Patient and/or family states understanding and agrees to proceed. Consent and supporting information completed. Discharge Exam PHYSICAL EXAMINATION Last 24h vital signs reviewed, see documentation in flowsheet General: sleeping and was slow to arouse per usual HEENT: Normocephalic, atraumatic, pupils round and equal, sclerae anicteric, no conjunctival injection, moist mucus membranes Lungs: CTA bilaterally no wheezing or crackles Heart: very distant, regular Abdomen: Soft, nontender, nondistended. Bowel sounds present. Extremities: Warm, dry, well-perfused. 3+ lower extremity edema - significantly improved compared to admission scrotum is still swollen however significantly improved compared to admission, no longer erythematous Neuro: Alert and oriented x self, hospital, oriented to basic situation, face symmetric, moves 4 extremities Psych: pleasant, no agitation Discharge Plan Discharge Items Patient Disposition: Transfer Alf Fac Reason For Visit: POST OP RESPIRATORY FAILURE Discharge Diagnosis: Same Activity: Resume your previous activity Weightbearing: Full weightbearing Non-emergency contact: Primary Care Provider Call non-emergency contact if: you have any medication questions and your symptoms worsen Follow-up/Referrals: Gabriele Orona DO [Physician] - Roderick Mayes PA-C [Physician Redrying Machine Operator] - 07/27/24 10:00 am Glenn Mata M.D. [Primary Care Provider] - Diet: Carb Consistent or DM2 and Low Sodium (2gm) Addtl Attending Provider Instructions: The surgery you had was: Hydrocelectomy Please take all medications as prescribed and keep all follow-ups as scheduled. Please call our office at [phone] with any questions, concerns or need to reschedule appointments for any reason. We are happy to assist you. Drains: Change dressing 3-5 x daily as needed. Okay to wash around area. Activity: Elevate scrotum while laying or sitting. For the next two weeks you should do light activity only (walking, reading, watching tv - no lifting more than 15-25 lbs, no mowing the lawn, no shoveling snow). After two weeks, you can gradually increase activity. It is ok to shower starting tomorrow, but no soaking in a tub or swimming for 2 weeks. Diet: You can resume your regular diet. Follow up: We will have you come in in 1-2 weeks for wound check. Please call if you have any concerns or need to be seen sooner. When to call [facility] at [phone]: Fever of 101F or higher Heavy bleeding Pain that is not controlled with medicine Uncontrolled vomiting Problems urinating or inability to urinate Addtl Certified Green Building Engineer Provider Instructions: PT and OT evaluate and treat Keep scrotum elevated on stack of towels Do NOT remove or exchange urinary catheter - Urologist will assess at office visit. Catheter is very difficult to place, even for the Urologist Monitor weight and edema 3x a week and adjust diuretics accordingly -main thing keeping his scrotal swelling down is diuretics Check BMP in 1 week (diuretic dose adjustments) Blood glucose check for diabetes - monitor BG has been 130-140 in hospital, diet controlled Severe JERICA and OHS -please schedule follow up with sleep medicine. ask for his family to bring in his CPAP meanwhile -would benefit from Bipap for chronic hypercarbic respiratory failure from JERICA/OHS, however, has recently been refusing it in the hospital O2 sat goal 88-92%, do not over-oxygenate because of hypercarbia Currently he is diuresing on bumex 2 mg daily Likely will have to reduce to 1 mg daily within a week or so, once leg and scrotal edema improved Weight decreased from 412 pounds to 392.6 pounds this admission (reduction in edema) Pending Studies at Discharge: No Stand-Alone Forms: My [facility] Skilled Items Patient informed of condition?: Yes DNR: No Discharge Level of Care: Skilled Communicable Disease: No Discharge Prognosis: Improving Lines: None Urinary Catheter: Yes Medications and DC Order Prescriptions: New polyethylene glycol 3350 [Miralax] 17 gram Powder In Packet 17 g PO DAILY Qty: 0 0RF potassium chloride 20 mEq Tablet,Er Particles/Crystals 40 meq PO DAILY Qty: 0 0RF bumetanide 1 mg Tablet 2 mg PO QAM Qty: 60 0RF nystatin [Nystop] 100,000 unit/gram Powder 1 applic EXT TID Qty: 0 0RF Continued atorvastatin 40 mg tablet 40 mg PO HS cholecalciferol (vitamin D3) 50 mcg (2,000 unit) capsule 50 mcg PO DAILY hyoscyamine sulfate 0.125 mg tablet, sublingual 0.25 mg PO Q6 PRN (Reason: Nausea) loperamide 2 mg capsule 2 mg PO Q6H PRN (Reason: Loose Stool) Xarelto 20 mg tablet 20 mg PO DAILY Rx Instructions: must administer with evening meal sennosides [Senna Laxative] 8.6 mg tablet 17.2 mg PO BID PRN (Reason: Constipation) acetaminophen [Tylenol] 325 mg tablet 325 mg PO QID PRN (Reason: Pain) gabapentin [Neurontin] 100 mg capsule 100 mg PO BID Mounjaro 2.5 mg/0.5 mL pen injector 2.5 mg subcut WK Patient Comments: takes on wednesdays melatonin 5 mg capsule 10 mg PO HS diclofenac sodium [Aleve (diclofenac)] 1 % gel 2 g topical BID Rx Instructions: apply to single elbow, wrist or hand; for hand includes palm/fingers/back of hand sennosides-docusate sodium 8.6-50 mg Tablet 1 tab-cap PO HS guaifenesin 100 mg/5 mL Liquid 300 mg PO Q6 PRN (Reason: Cough) mineral oil Enema 118 ml DE QAM PRN (Reason: Constipation) Rx Instructions: discard any unused portion bisacodyl [Dulcolax (bisacodyl)] 10 mg Suppository 10 mg DE PM PRN (Reason: Constipation) lactulose 20 gram/30 mL Solution 20 g PO QAM PRN (Reason: Constipation) Discontinued furosemide [Lasix] 20 mg tablet 20 mg PO DAILY furosemide [Lasix] 40 mg tablet 40 mg PO DAILY Discharge Orders: Discharge Order (Routine); Ordered 07/29/24 Ordered By: Sudha Hsu Admission Data Admit Date/Time: 07/16/24 15:01 Attending Provider: Sudha Hsu Admit Provider: Gabriele Orona Primary Care Provider: Glenn Mata Other Providers: Tl Redding; Yonny Goetz; Fely Curry Other Interventions: Discharge Summary Assessment (RN) Last Done: 07/29/24 12:22 Hospital Stay Data Consultations 07/16/24 14:18 Consult Hospitalist Stat 07/17/24 16:41 Consult Certified Professional Coder Routine 07/18/24 17:01 Consult Hospitalist Routine 07/20/24 13:38 Consult Pulmonology Routine Procedures Performed Operation Date: 07/16/24 13:10 Actual Procedures p Bilateral Hydrocelectomy (Bilateral) - Gabriele Orona DO Pending Results Patient Have Any Pending Studies at Discharge: No Discharge Instructions Given to Patient (Per Discharging Provider) The surgery you had was: Hydrocelectomy Please take all medications as prescribed and keep all follow-ups as scheduled. Please call our office at [phone] with any questions, concerns or need to reschedule appointments for any reason. We are happy to assist you. Drains: Change dressing 3-5 x daily as needed. Okay to wash around area. Activity: Elevate scrotum while laying or sitting. For the next two weeks you should do light activity only (walking, reading, watching tv - no lifting more than 15-25 lbs, no mowing the lawn, no shoveling snow). After two weeks, you can gradually increase activity. It is ok to shower starting tomorrow, but no soaking in a tub or swimming for 2 weeks. Diet: You can resume your regular diet. Follow up: We will have you come in in 1-2 weeks for wound check. Please call if you have any concerns or need to be seen sooner. When to call [facility] at [phone]: Fever of 101F or higher Heavy bleeding Pain that is not controlled with medicine Uncontrolled vomiting Problems urinating or inability to urinate Total Time Total Time Spent Total Time Spent (In Minutes): I personally spent: 45 minutes today on clinical care activities including: reviewing chart notes and vital signs discussion with field consultant(s) - urologist discussion with healthcare associate examining and counseling the patient writing orders writing prescriptions, discharge instructions documentation Coding Level of Care Code 55236 INP/OBS DISCH >30 MIN Diagnoses Acute hypoxemic respiratory failure J96.01 Acute metabolic encephalopathy G93.41 Diabetes mellitus, type 2 E11.9 Chronic atrial fibrillation I48.20 Spermatocele of epididymis, multiple N43.42 Acute on chronic heart failure with preserved ejection fraction (HFpEF) I50.33 Obstructive sleep apnea G47.33 Morbid obesity with BMI of 50.0-59.9, adult E66.01; Z68.43 Candidiasis B37.9
== END 2024-07-29 14:09 | DRG 711 ==
LOC: ASU 09:02 → 1E 15:01 → SUATTDRO 15:01 → 2E 07-18 18:36 → 2W 07-20 16:01 → 3W 07-25 16:48